=== PATIENT | male | born 1970 | race Caucasian/White ===

== ENCOUNTER 2023-02-10 11:33 | Inpatient (IN) ==
--- NOTE | 2023-02-10 11:40 | ED Triage Note ---
Date of Service February 10, 2023 History of Present Illness This patient was briefly evaluated while in triage. An abbreviated physical exam was performed. This patient is a 52-year-old Male who presents to the ED for evaluation of an abscess on his tailbone. The patient's PCP recommended that he come to the emergency department for IV antibiotics. The patient has had ongoing swelling over the past week. He rates his discomfort a 4 out of 10. Physical Exam CONSTITUTIONAL: Healthy and well nourished. Patient does not appear toxic. HEENT: No scleral icterus or conjunctival injection. GASTROINTESTINAL: Abdomen soft and nontender to palpation. MUSCULOSKELETAL: Full range of motion of all joints without discomfort. INTEGUMENTARY: Tylenol exam was not performed in triage. HEMATOLOGIC: No ecchymosis or petechiae. PSYCHIATRIC: Positive affect. NEUROLOGIC: No focal neurologic deficits noted. Initial orders for labs and / or imaging were placed and patient was placed in the waiting area until a bed is available. Please see further documentation for the full ED course.
[2023-02-10 13:48] LABS: Basophils # (auto) 0.21 K/uL (0-0.2); Basophils % (auto) 1.8 %; Eosinophils # (auto) 0.49 K/uL (0-0.50); Eosinophils % (auto) 4.1 %; Hematocrit (blood only) 39.5 % (42.0-52.0); Hemoglobin 13.6 g/dl (14.0-18.0); Immature Granulocytes # (auto) 0.12 K/uL (0.01-0.20); Lymphocytes # (auto) 2.88 K/uL (1.2-3.4); Lymphocytes % (auto) 24.4 %; Mean Corpuscular Hemoglobin 26.9 pg (25.0-34.0); Mean Corpuscular Hgb Conc 34.4 g/dL (32.0-36.0); Mean Corpuscular Volume 78.2 fL (80.0-100.0); Mean Platelet Volume 8.6 fL (9.4-12.4); Monocytes # (auto) 0.64 K/uL (0.11-0.59); Monocytes % (auto) 5.4 %; Neutrophils # (auto) 7.48 K/uL (1.40-6.50); Neutrophils % (auto) 63.3 %; Platelet Count 595 K/uL (130-400); RDW Coefficient of Variation 13.4 % (11.5-14.5); Red Blood Count 5.05 M/uL (4.70-6.10); White Blood Count 11.82 K/ul (4.8-10.8)
[2023-02-10 14:05] LABS: Albumin Globulin Ratio 0.7 (0.9-2); Albumin Level 3.4 gm/dl (3.4-5.0); BUN Creatinine Ratio 6.3 (10-20); Bilirubin,Total 0.2 mg/dl (0.2-1.0); Calcium 8.9 mg/dl (8.6-10.3); Creatinine Clr Calc Pharmacy 73.3 ml/min; Est GFR (African American) 75.5 ml/min; Est GFR (Non-African American) 65.1 ml/min; Globulin 4.8 gm/dl (2.5-4.0); Potassium 3.7 mmol/L (3.5-5.1); Total Protein 8.2 gm/dl (6.0-8.3)
--- NOTE | 2023-02-10 16:34 | Emergency Department Note ---
History of Present Illness General Chief complaint: Skin Problem Stated complaint: TAILBONE SKIN ISSUES Time Seen by Provider: 02/10/23 16:18 Source: patient, RN notes reviewed and old records reviewed (We have reviewed his [facility] records and he has received multiple cephalosporins) Mode of arrival: ambulatory Limitations: no limitations History of Present Illness Maximum Pain Intensity: 8 This patient a 52-year-old male who was sent over from Dr. Peace's office for concern of an abscess on his tailbone. He says he has a history of pilonidal abscesses that have drained before he is never actually had one surgically drained he says he usually does go on their own he had some drainage but none at present he has been itching and rubbing. He is not on a blood thinner he is a diabetic. He has had no fever or systemic complaints. no chest pain shortness of breath or abdominal pain. no injury. He does have a remote history of having MRSA he tells me he is allergic to penicillin and does get GI upset from sulfa. Home Medications Medication Instructions Recorded Confirmed Type acetaminophen 650 mg 650 mg PO BID PRN Pain 12/03/22 02/10/23 History tablet,extended release albuterol sulfate 90 mcg/actuation 2 puff inhalation QID PRN 12/03/22 02/10/23 History aerosol inhaler Shortness Of Breath aspirin 81 mg chewable tablet 81 mg PO DAILY 12/03/22 02/10/23 History atorvastatin 40 mg tablet 40 mg PO DAILY 12/03/22 02/10/23 History bupropion HCl 300 mg 24 hr tablet, 300 mg PO DAILY 12/03/22 02/10/23 History extended release cyanocobalamin (vitamin B-12) 1,000 mcg PO DAILY 12/03/22 02/10/23 History 1,000 mcg tablet cyclobenzaprine 10 mg tablet 10 mg PO HS PRN .restless leg 12/03/22 02/10/23 History epinephrine 0.3 mg/0.3 mL 0.3 mg IM DIRECTED PRN severe 12/03/22 02/10/23 History injection, auto-injector reaction fluoxetine 40 mg capsule 40 mg PO DAILY 12/03/22 02/10/23 History gabapentin 400 mg capsule 400 mg PO TID 12/03/22 02/10/23 History glycopyrrolate 9 mcg-formoterol 2 puff inhalation AMHS 12/03/22 02/10/23 History 4.8 mcg HFA aerosol inhaler (Bevespi Aerosphere) hydroxyzine HCl 25 mg tablet 25 mg PO QAM 12/03/22 02/10/23 History ibuprofen 800 mg tablet 800 mg PO TID PRN Pain 12/03/22 02/10/23 History insulin glargine 100 unit/mL (3 45 unit subcut QPM 12/03/22 02/10/23 History mL) subcutaneous pen (Lantus Solostar U-100 Insulin) insulin lispro 100 unit/mL 14 - 50 unit subcut TID 12/03/22 02/10/23 History subcutaneous pen (Admelog SoloStar U-) lamotrigine 200 mg tablet 200 mg PO AMHS 12/03/22 02/10/23 History loratadine 10 mg tablet 10 mg PO DAILY 12/03/22 02/10/23 History losartan 50 mg tablet 50 mg PO QAM 12/03/22 02/10/23 History magnesium oxide 500 mg capsule 500 mg PO DAILY 12/03/22 02/10/23 History metformin 500 mg tablet 1,000 mg PO QAM 12/03/22 02/10/23 History metoclopramide HCl 10 mg tablet 10 mg PO TID 12/03/22 02/10/23 History metoclopramide HCl 10 mg tablet 20 mg PO HS 12/03/22 02/10/23 History pantoprazole 40 mg tablet,delayed 40 mg PO QAM 12/03/22 02/10/23 History release quetiapine 25 mg tablet 25 mg PO QID PRN Anxiety 12/03/22 02/10/23 History ropinirole 1 mg tablet See Rx Instructions .Route .COMPLEX 12/03/22 02/10/23 History ropinirole 2 mg tablet See Rx Instructions .Route .COMPLEX 12/03/22 02/10/23 History Allergies Allergy/AdvReac Type Severity Reaction Status Date / Time Penicillins Allergy Severe THROAT Verified 02/10/23 17:19 CLOSING bee venom protein (honey bee) Allergy SWELLING Verified 02/10/23 17:19 liraglutide [From Victoza] AdvReac Difficulty Verified 02/10/23 17:19 Breathing Sulfa (Sulfonamide AdvReac Gastrointestinal Verified 02/10/23 17:19 Antibiotics) Upset Past Med/Surg History Medical History Abscess and cellulitis of gluteal region Depression GERD (gastroesophageal reflux disease) HLD (hyperlipidemia) HTN (hypertension) Insulin dependent type 2 diabetes mellitus Surgical History No pertinent past surgical history Family History Other COPD (chronic obstructive pulmonary disease) Diabetes Social History Smoking Status: Current every day smoker Tobacco Type: Cigarettes Second Hand Exposure: No; Do You Dip or Chew Tobacco: No; Hx Alcohol Use: No Hx Substance Use: No Feels Safe at Home: Yes Immunizations: Past medical historydiabetes. Pilonidal abscess. Social history he smokes 1 pack a day. Denies alcohol and drug use. He is disabled Review of Systems A total of 10 systems reviewed and were otherwise negative Physical Exam Vital Signs Vital Signs - 24 hr 02/10/23 11:38 02/10/23 17:09 Temperature 35.9 C L Temperature Source Temporal Artery Scan Pulse Rate 115 H Pulse Rate [Right Finger] 74 Respiratory Rate 18 20 Respiratory Effort / Characteristics Non-Labored Respiratory Depth Normal Blood Pressure 120/64 Blood Pressure [Right Arm] 123/84 Blood Pressure Mean 82 Blood Pressure Mean [Right Arm] 97 Pulse Oximetry 96 98 Oxygen Delivery Method Room Air Sepsis Recent Fever Within 48 Hours Yes Sepsis New/Unexplained Change in Mental Status N/A Sepsis Action Taken by Nursing No Action Required General: Well developed well nourished [id number] middle-age male who appears in no acute distress, breathing comfortably on room air. Normal speech HEENT: Normal cephalic atraumatic. Pupils are equal round and reactive to light. Extraocular movements are intact. Oropharynx is pink with moist mucous membranes. No swelling of the mouth lips or tongue. Neck: Supple with a midline trachea. No meningeal signs or stiffness, no JVD or bruits. No Stridor. Chest: Clear to auscultation bilaterally. No wheezes or rhonchi. No increased work of breathing. Heart: Regular rate and rhythm without murmurs or gallops. Abdomen: Soft nontender, nondistended without rebound guarding or rigidity. Rectal: Has diffuse pink discoloration of both of his butt cheeks bilaterally where he has been rubbing there is excoriation of the skin is not overtly cellulitic there is no drainage. There is a small opening centrally where there may have been a pilonidal abscess at 1 point but that area itself is not swollen or red and without any drainage. Extremities: No cyanosis clubbing or edema. No calf tenderness or assymetry Spine/Back. Non tender to palpation. No CVA tenderness Skin: Good turgor without rashes. Neurologic exam: Cranial nerves two through 12 are intact. Motor and sensation are intact and symmetrical throughout. Course Administered Medications Sodium Chloride (Nss 1000ml) 1,000 mls @ 80 mls/hr IV .[id number] FERNANDEZ Stop: 02/11/23 07:59 Last Admin: 02/10/23 22:00 Dose: 80 mls/hr Documented By: DACIAB Discontinued Medications Ceftriaxone Sodium (Rocephin) 2,000 mg in 70 mls @ 140 mls/hr IV NOW STA Stop: 02/10/23 17:18 Last Infusion: 02/10/23 17:37 Dose: 0 mls/hr Documented By: Admin: 02/10/23 17:09 Dose: 140 mls/hr Documented By: PACHECO Vancomycin HCl 1,750 mg/ (Sodium Chloride) 535 mls @ 200 mls/hr IV NOW ONE Stop: 02/10/23 21:41 Last Admin: 02/10/23 19:27 Dose: 200 mls/hr Documented By: AHMET Ioversol (Optiray 320 100ml) 88 ml IV ONCE ONE Stop: 02/10/23 16:44 Last Admin: 02/10/23 16:43 Dose: 88 ml Documented By: AMIRAH Medical Decision Making Differential Diagnosis Abscess, cellulitis, infection, sepsis, pilonidal abscess, electrolyte or meta bolic abnormality Medical Records Attestation: I reviewed the patient's medical records. Home Medications Current Medication List: was personally reviewed by me Laboratory Data Attestation: I reviewed the patient's lab results. 02/10/23 13:20 02/10/23 13:20 Lab Results 02/10/23 02/10/23 Range/Units 13:20 13:20 WBC 11.82 H (4.8-10.8) K/ul RBC 5.05 (4.70-6.10) M/uL Hgb 13.6 L (14.0-18.0) g/dl Hct 39.5 L (42.0-52.0) % MCV 78.2 L (80.0-100.0) fL MCH 26.9 (25.0-34.0) pg MCHC 34.4 (32.0-36.0) g/dL RDW Std Deviation 38.0 (36.4-46.3) fL RDW Coeff of Estefnaia 13.4 (11.5-14.5) % Plt Count 595 H (130-400) K/uL MPV 8.6 L (9.4-12.4) fL Immature Gran % (Auto) 1.0 % Neut % (Auto) 63.3 % Lymph % (Auto) 24.4 % [place] % (Auto) 5.4 % Eos % (Auto) 4.1 % Baso % (Auto) 1.8 % Neut # (Auto) 7.48 H (1.40-6.50) K/uL Lymph # (Auto) 2.88 (1.2-3.4) K/uL [place] # (Auto) 0.64 H (0.11-0.59) K/uL Eos # (Auto) 0.49 (0-0.50) K/uL Baso # (Auto) 0.21 H (0-0.2) K/uL Immature Gran # (Auto) 0.12 (0.01-0.20) K/uL Sodium 128 L (136-145) mmol/L Potassium 3.7 (3.5-5.1) mmol/L Chloride 98 (98-107) mmol/L Carbon Dioxide 25 (21-32) mmol/L Anion Gap 5 (3-11) BUN 8 (6-23) mg/dl Creatinine 1.26 (0.6-1.4) mg/dl Est Cr Clr Drug Dosing 73.3 ml/min Est GFR ( Amer) 75.5 ml/min Est GFR (Non-Af Amer) 65.1 ml/min BUN/Creatinine Ratio 6.3 L (10-20) Glucose 173 H (70-99(Fasting)) mg/dl Calcium 8.9 (8.6-10.3) mg/dl Total Bilirubin 0.2 (0.2-1.0) mg/dl AST 12 L (13-39) U/L ALT 10 (7-52) U/L Alkaline Phosphatase 164 H (34-104) U/L Total Protein 8.2 (6.0-8.3) gm/dl Albumin 3.4 (3.4-5.0) gm/dl Globulin 4.8 H (2.5-4.0) gm/dl Albumin/Globulin Ratio 0.7 L (0.9-2) Imaging Data Attestation: I personally reviewed and interpreted this imaging study as follows: My Impression: CT abdomen and pelvis-there is what appears to be an abscess in his left gluteal area Radiologist's Impression: Abdomen/Pelvis CT 02/10/23 16:[address] WITH IV CONTRAST CT DOSE: 1614.75 mGy.cm HISTORY: Acute lower pelvic/rectal pain eval for rectal/pilonidal abscess TECHNIQUE: Multiaxial CT images of the abdomen and pelvis were performed following the IV administration of 88 cc of Optiray, A dose lowering technique was utilized adhering to the principles of ALARA. COMPARISON STUDY: Chest radiograph 12/01/2022 FINDINGS: Mild patchy subsegmental bibasilar groundglass densities. No pneumatosis or pneumoperitoneum. Gynecomastia. The spleen is mildly enlarged, 14.5 cm. Mildly atrophic pancreas. Unremarkable adrenal glands. Cholelithiasis. Mildly enlarged liver. Patent portal vein. Unremarkable kidneys. 2 cm cyst of the superior pole left kidney. No hydronephrosis. Unremarkable urinary bladder. Atherosclerosis of the aorta without aneurysm. Subcentimeter retroperitoneal lymph nodes are likely reactive. Nonspecific distal esophageal wall thickening. No bowel obstruction or bowel wall thickening. Colonic diverticulosis. Normal appendix. There is moderate focal cellulitis changes within the subcutaneous left gluteal tissues. There is a peripherally enhancing air and fluid filled collection in the left subcutaneous gluteal tissues on image 23 measuring 5.3 x 2.5 x 6.0 cm with a sinus tract on image 268 extending to the medial gluteal cleft no extension to the perianal tissues. No acute fracture or osseous erosion. IMPRESSION: 1. Left gluteal cellulitis with subcutaneous 6 cm abscess. There is an associated sinus tract which appears to communicate with the medial gluteal cleft. 2. No perianal involvement or supralevator extension. 3. No bowel obstruction or bowel wall thickening. 4. Cholelithiasis. 5. Mild subsegmental bibasilar groundglass densities are suspicious for a nonspecific infectious or inflammatory pneumonitis such as viral pneumonia. 6. Additional findings as above. ACT 112: Negative or not required by law. The above report was generated using voice recognition software. It may contain grammatical, syntax or spelling errors. Electronically signed by: Prince Underwood M.D. 02/10/2023 5:00 PM MDM Narrative This patient comes in as described above he has history of pilonidal abscess and on exam he is very indurated in both of his butt cheeks bilaterally there is no focal area of swelling or definitive oral abscess on exam I did order CT White count mildly elevated at 11 although he is afebrile. There is no drainage or overt cellulitis on exam his sodium is mildly low at 128 however looking back to the chart he tends to run low. Blood sugars mildly elevated 173 however he is a diabetic. CT was obtained I did look through his records. He has received multiple cephalosporins including Rocephin. He was given Rocephin 2 g IV. CAT scan does show a left gluteal cellulitis with a 6 cm abscess with a fistula. I did discuss the case in consultation with Dr. Gorman, who is the surgeon on- call. He recommended admitting the patient for IV antibiotics to the medical team, given the fact that he is a diabetic. [facility] and they will be admitting him for these measures with surgical consultation. Impression & Plan Abscess and cellulitis of gluteal region, Insulin dependent type 2 diabetes mellitus, Cellulitis, Abscess of skin or subcutaneous tissue Discharge Plan Visit Data Chief Complaint: Skin Problem Stated Complaint: TAILBONE SKIN ISSUES ED Provider: Mic Montaño Discharge Problem: Abscess and cellulitis of gluteal region, Insulin dependent type 2 diabetes mellitus, Cellulitis, Abscess of skin or subcutaneous tissue Patient Disposition: Admitted As Inpatient Discharge Instructions Interventions: ED Discharge Assessment Last Done: 02/10/23 20:56
[2023-02-10] MEDS ORDERED: OPTIRAY 320 100ml IV ONE (16:43)
[2023-02-10] MEDS ORDERED: cefTRIAXone SODIUM 2,000 MG/70 ML BAG IV STA (16:49)
--- NOTE | 2023-02-10 17:01 | CT Scan Report ---
ABDOMEN AND PELVIS CT WITH IV CONTRAST CT DOSE: 1614.75 mGy.cm HISTORY: Acute lower pelvic/rectal pain eval for rectal/pilonidal abscess TECHNIQUE: Multiaxial CT images of the abdomen and pelvis were performed following the IV administrat ion of 88 cc of Optiray, A dose lowering technique was utilized adhering to the principles of ALARA. COMPARISON STUDY: Chest radiograph 12/01/2022 FINDINGS: Mild patchy subsegmental bibasilar groundglass densities. No pneumatosis or pneumoperitoneu m. Gynecomastia. The spleen is mildly enlarged, 14.5 cm. Mildly atrophic pancreas. Unremarkable adren al glands. Cholelithiasis. Mildly enlarged liver. Patent portal vein. Unremarkable kidneys. 2 cm cyst of the superior pole left kidney. No hydronephrosis. Unremarkable urinary bladder. Atherosclerosis o f the aorta without aneurysm. Subcentimeter retroperitoneal lymph nodes are likely reactive. Nonspecific distal esophageal wall thickening. No bowel obstruction or bowel wall thickening. Colonic diverticulosis. Normal appendix. There is moderate focal cellulitis changes within the subcutaneous left gluteal tissues. There is a peripherally enhancing air and fluid filled collection in the left s ubcutaneous gluteal tissues on image 23 measuring 5.3 x 2.5 x 6.0 cm with a sinus tract on image 268 extending to the medial gluteal cleft no extension to the perianal tissues. No acute fracture or osse ous erosion. IMPRESSION: 1. Left gluteal cellulitis with subcutaneous 6 cm abscess. There is an associated sinus tract which a ppears to communicate with the medial gluteal cleft. 2. No perianal involvement or supralevator extension. 3. No bowel obstruction or bowel wall thickening. 4. Cholelithiasis. 5. Mild subsegmental bibasilar groundglass densities are suspicious for a nonspecific infectious or i nflammatory pneumonitis such as viral pneumonia. 6. Additional findings as above. ACT 112: Negative or not required by law. The above report was generated using voice recognition software. It may contain grammatical, syntax o r spelling errors. Electronically signed by: Prince Underwood M.D. 02/10/2023 5:00 PM
[2023-02-10] MEDS ORDERED: ONDANSETRON INJ 2 MG/ML 2 ML VIAL IV PRN (17:55)
[2023-02-10] MEDS ORDERED: ACETAMINOPHEN 325 MG TAB PO PRN (17:55)
[2023-02-10] MEDS ORDERED: POLYETHYLENE (MIRALAX) 17 GM PACK PO PRN (17:55)
[2023-02-10] MEDS ORDERED: ALUMINUM/MAGNESIUM SUSP 30 ML UDC PO PRN (17:55)
[2023-02-10] MEDS ORDERED: MAGNESIUM HYDROXIDE SUSP 30 ML UDC PO PRN (17:55)
--- NOTE | 2023-02-10 18:23 | History & Physical Report ---
Date of Service February 10, 2023 Assessment & Plan (1) Abscess and cellulitis of gluteal region: (2) Insulin dependent type 2 diabetes mellitus: (3) HTN (hypertension): (4) HLD (hyperlipidemia): (5) Depression: (6) GERD (gastroesophageal reflux disease): Plan 52-year-old male presented from PCP with rectal pain and swelling. Known pilonidal cysts that he describes drain on their own. Abdomen/pelvic CT: There is a peripherally enhancing air and fluid filled collection in the left subcutaneous gluteal tissues on image 23 measuring 5.3 x 2.5 x 6.0 cm with a sinus tract on image 268 extending to the medial gluteal cleft no extension to the perianal tissues. No acute fracture or osseous erosion. Left gluteal cellulitis with subcutaneous 6 cm abscess. There is an associated sinus tract which appears to communicate with the medial gluteal cleft. Mild leukocytosis 11.82, lactate pending. Slight hyponatremia 128 with corrected sodium 130. Additional past medical history includes insulin-dependent diabetes mellitus type 2, HTN, HLD, depression and anxiety, depression, and GERD. Rocephin started in the ED; documented PCN allergy that pt states had anaphylaxis as a kid. Will start Vancomycin and adjust based on blood culture results. Appreciate general surgery's input with formal consultation. Abscess and cellulitis of gluteal region: Rectal pain and swelling Mild leukocytosis 11.82 Abdomen/pelvic CT: There is a peripherally enhancing air/fluid filled collection in the left subcutaneous gluteal tissues on image 23 measuring 5.3 x 2.5 x 6.0 cm with a sinus tract extending to the medial gluteal cleft no extension to the perianal tissues. No acute fracture or osseous erosion. Left gluteal cellulitis with subcutaneous 6 cm abscess. T here is an associated sinus tract which appears to communicate with the medial gluteal cleft. Rocephin started in ED; documented PCN allergy that pt states had anaphylaxis as a child. Will start Vancomycin + Cipro + Flagyl to cover gram negative, MRSA, and anorectal abscess; adjust based on blood culture results Blood cultures and lactate ordered To note patient uses 1800 mg ibuprofen daily NPO after midnight; hold ASA General surgery consultation placed Hyponatremia: Serum sodium 128; corrected sodium 130 After review of records this is patient's baseline sodium level Do not suspect renal loss, GI loss versus third spacing rather euvolemic hypotonic hyponatremia related to antidepressant and NSAID use. Anticipate further resolution with IVF resuscitation; IVF@80 mL/h x 1 bag ordered; reassess in a.m. no known heart failure history. Insulin-dependent diabetes type 2 with neuropathy: Takes metformin; hold while inpatient Takes Gabapentin; continue Scheduled lispro 50 units 3 times daily; keep on sliding scale and carb coverage while inpatient Last A1c: 08/2022 7.2; recheck in AM Serum glucose 173 diabetic diet; NPO after MN pending gen sx consultation Glycemic Pharmacy HTN: Takes Losartan; continue HLD: Takes atorvastatin; continue Bipolar disorder: Depression: Follows with Psych in [place]; Last appt 12/31/22. Prescribed Wellbutrin, Lamictal, Seroquel (PRN), Prozac, hydroxyzine; continue Has not had any recent visual or auditory hallucinations. GERD: Takes pantoprazole; continue Disposition: PCP: Dr. Schuler CODE STATUS: Full code VTE prophylaxis: Teds and SCDs for now I spent a total of 88 minutes coordinating, documenting, and providing care for this patient excluding time spent in the performance of separately billed services. All of the aforementioned completed while collaborating with the assigned attending physician for a full treatment plan. Please see their addendum for further details. History of Present Illness Chief Complaint: rectal pain Primary Care Provider: Taran Schuler DO 52-year-old male presented to his PCP office with rectal pain and swelling and was referred to the emergency room for further evaluation. Patient with known pilonidal cysts that he describes drain on their own. Reports having increased pain with walking over the past week. Denies fevers or chills. No changes with bowel movements; no hematochezia. Abdomen/pelvic CT: There is a peripherally enhancing air and fluid filled collection in the left subcutaneous gluteal tissues on image 23 measuring 5.3 x 2.5 x 6.0 cm with a sinus tract on image 268 extending to the medial gluteal cleft no extension to the perianal tissues. No acute fracture or osseous erosion. Left gluteal cellulitis with subcutaneous 6 cm abscess. There is an associated sinus tract which appears to communicate with the medial gluteal cleft. Mild leukocytosis 11.82, slight hyponatremia 128 with corrected sodium 130. Do not suspect renal loss, GI loss versus third spacing rather euvolemic hypotonic hyponatremia related to antidepressant and daily NSAID use. Per review of records; baseline Na+ 130 from August 2022. Does take short and long acting insulin but was unable to tell me any ranges of his glucose levels. A1C 7.2 from Aug 2022. Additional past medical history includes insulin-dependent diabetes mellitus type 2, HTN, HLD, depression and anxiety, bipolar disorder, tobacco use, and GERD. Smokes 1 ppd, no alcohol or illicit drug use. Stated he 'thinks' he had a stroke in his past; not on any anticoagulation; Limited but was able to find outpatient records from [facility] with head neck CTA that was negative. Follows with Psych in [place]; Last appt 12/31/22. patient is on disability due to medical reasons and adult children reside in [place]. For his bipolar disorder and depression he is prescribed Wellbutrin, Lamictal, Seroquel, Prozac, hydroxyzine. He reports that potential stressors in his life include his brother that he lives with. He is able to find distractions and listen to music and has not had any recent visual or auditory hallucinations. Rocephin started in the ED; documented PCN allergy that pt states had anaphylaxis as a kid. Will start Vancomycin and adjust based on blood culture results. Appreciate general surgery's input with formal consultation. Denies PAGE, dizziness, SOB, CP, palpitations, N/V/D, abdominal pain/tenderness, dysuria, neuropathy , weakness, recent falls or trauma. On examination, disheveled individual with large stage 1 pressure ulcer extending on both sides of his gluteal folds with scattered stage II breakdown without purulent drainage. He will be admitted for further evaluation and management. Please see A/P for further details. Allergies Allergy/AdvReac Type Severity Reaction Status Date / Time Penicillins Allergy Severe THROAT Verified 02/10/23 17:19 CLOSING bee venom protein (honey bee) Allergy SWELLING Verified 02/10/23 17:19 liraglutide [From Victoza] AdvReac Difficulty Verified 02/10/23 17:19 Breathing Sulfa (Sulfonamide AdvReac Gastrointestinal Verified 02/10/23 17:19 Antibiotics) Upset Home Medications Medication Instructions Recorded Confirmed Type acetaminophen 650 mg 650 mg PO BID PRN Pain 12/03/22 02/10/23 History tablet,extended release albuterol sulfate 90 mcg/actuation 2 puff inhalation QID PRN 12/03/22 02/10/23 History aerosol inhaler Shortness Of Breath aspirin 81 mg chewable tablet 81 mg PO DAILY 12/03/22 02/10/23 History atorvastatin 40 mg tablet 40 mg PO DAILY 12/03/22 02/10/23 History bupropion HCl 300 mg 24 hr tablet, 300 mg PO DAILY 12/03/22 02/10/23 History extended release cyanocobalamin (vitamin B-12) 1,000 mcg PO DAILY 12/03/22 02/10/23 History 1,000 mcg tablet cyclobenzaprine 10 mg tablet 10 mg PO HS PRN .restless leg 12/03/22 02/10/23 History epinephrine 0.3 mg/0.3 mL 0.3 mg IM DIRECTED PRN severe 12/03/22 02/10/23 His tory injection, auto-injector reaction fluoxetine 40 mg capsule 40 mg PO DAILY 12/03/22 02/10/23 History gabapentin 400 mg capsule 400 mg PO TID 12/03/22 02/10/23 History glycopyrrolate 9 mcg-formoterol 2 puff inhalation AMHS 12/03/22 02/10/23 History 4.8 mcg HFA aerosol inhaler (Bevespi Aerosphere) hydroxyzine HCl 25 mg tablet 25 mg PO QAM 12/03/22 02/10/23 History ibuprofen 800 mg tablet 800 mg PO TID PRN Pain 12/03/22 02/10/23 History insulin glargine 100 unit/mL (3 45 unit subcut QPM 12/03/22 02/10/23 History mL) subcutaneous pen (Lantus Solostar U-100 Insulin) insulin lispro 100 unit/mL 14 - 50 unit subcut TID 12/03/22 02/10/23 History subcutaneous pen (Admelog SoloStar U-) lamotrigine 200 mg tablet 200 mg PO AMHS 12/03/22 02/10/23 History loratadine 10 mg tablet 10 mg PO DAILY 12/03/22 02/10/23 History losartan 50 mg tablet 50 mg PO QAM 12/03/22 02/10/23 History magnesium oxide 500 mg capsule 500 mg PO DAILY 12/03/22 02/10/23 History metformin 500 mg tablet 1,000 mg PO QAM 12/03/22 02/10/23 History metoclopramide HCl 10 mg tablet 10 mg PO TID 12/03/22 02/10/23 History metoclopramide HCl 10 mg tablet 20 mg PO HS 12/03/22 02/10/23 History pantoprazole 40 mg tablet,delayed 40 mg PO QAM 12/03/22 02/10/23 History release quetiapine 25 mg tablet 25 mg PO QID PRN Anxiety 12/03/22 02/10/23 History ropinirole 1 mg tablet See Rx Instructions .Route .COMPLEX 12/03/22 02/10/23 History ropinirole 2 mg tablet See Rx Instructions .Route .COMPLEX 12/03/22 02/10/23 History Past Med/Surg History Medical History Abscess and cellulitis of gluteal region Depression GERD (gastroesophageal reflux disease) HLD (hyperlipidemia) HTN (hypertension) Insulin dependent type 2 diabetes mellitus Surgical History No pertinent past surgical history Family History Other COPD (chronic obstructive pulmonary disease) Diabetes Social History Smoking Status: Current every day smoker Tobacco Type: Cigarettes Second Hand Exposure: No; Do You Dip or Chew Tobacco: No; Hx Alcohol Use: No Hx Substance Use: No Feels Safe at Home: Yes Review of Systems Review of Systems: Neuro: (-) Falls, trauma, slurred speech HEENT: (-) PAGE, dizziness, dysphagia, visual or auditory changes CV: (-) CP, palpitations, swelling Resp: (-) SOB GI: (-) appetite changes, N/V/D, bowel changes : (-) urinary changes Skin: (+ ) rashes, skin breakdown on bottom Psych: (-) anxiety, depression Physical Exam Physical Exam: Neuro: AAOx4, PERRLA, no aphagia, memory changes, CNII-XII grossly intact HEENT: head normocephalic, moist mucus membranes CV: S1/S2, (-) M/G/R, (-) edema, cap refill < 3 seconds Resp: Lungs CTA in all gilbert. On RA GI: Abdomen S/NT/ND, Ax4 bowel sounds, (-) CVA tenderness Musculoskeletal: 5/5 B/L UE strength, 5/5 B/L LE strength. No gait disturbance Skin: stage 1 pressure ulcer extending on both sides of his gluteal folds with scattered stage II breakdown without purulent drainage. Psych: euthymic mood Results & Data Results & Data Vital Signs (Past 12 Hours) Vital Signs Temp Pulse Pulse Resp BP BP Pulse Ox 02/10/23 17:09 74 20 123/84 98 02/10/23 11:38 35.9 C L 115 H 18 120/64 96 O2 Del Method 02/10/23 17:09 Room Air 02/10/23 11:38 Laboratory Results Short CBC 02/10/23 Range/Units 13:20 WBC 11.82 H (4.8-10.8) K/ul Hgb 13.6 L (14.0-18.0) g/dl Hct 39.5 L (42.0-52.0) % Plt Count 595 H (130-400) K/uL BMP 02/10/23 13:20 Sodium 128 L Potassium 3.7 Chloride 98 Carbon Dioxide 25 BUN 8 Creatinine 1.26 Glucose 173 H Calcium 8.9 Liver Function 02/10/23 Range/Units 13:20 Total Bilirubin 0.2 (0.2-1.0) mg/dl AST 12 L (13-39) U/L ALT 10 (7-52) U/L Alkaline Phosphatase 164 H (34-104) U/L Albumin 3.4 (3.4-5.0) gm/dl Diagnostic Findings Abdomen/Pelvis CT 02/10/23 16:[address] WITH IV CONTRAST CT DOSE: 1614.75 mGy.cm HISTORY: Acute lower pelvic/rectal pain eval for rectal/pilonidal abscess TECHNIQUE: Multiaxial CT images of the abdomen and pelvis were performed following the IV administration of 88 cc of Optiray, A dose lowering technique was utilized adhering to the principles of ALARA. COMPARISON STUDY: Chest radiograph 12/01/2022 FINDINGS: Mild patchy subsegmental bibasilar groundglass densities. No pneumatosis or pneumoperitoneum. Gynecomastia. The spleen is mildly enlarged, 14.5 cm. Mildly atrophic pancreas. Unremarkable adrenal glands. Cholelithiasis. Mildly enlarged liver. Patent portal vein. Unremarkable kidneys. 2 cm cyst of the superior pole left kidney. No hydronephrosis. Unremarkable urinary bladder. Atherosclerosis of the aorta without aneurysm. Subcentimeter retroperitoneal lymph nodes are likely reactive. Nonspecific distal esophageal wall thickening. No bowel obstruction or bowel wall thickening. Colonic diverticulosis. Normal appendix. There is moderate focal cellulitis changes within the subcutaneous left gluteal tissues. There is a peripherally enhancing air and fluid filled collection in the left subcutaneous gluteal tissues on image 23 measuring 5.3 x 2.5 x 6.0 cm with a sinus tract on image 268 extending to the medial gluteal cleft no extension to the perianal tissues. No acute fracture or osseous erosion. IMPRESSION: 1. Left gluteal cellulitis with subcutaneous 6 cm abscess. There is an associated sinus tract which appears to communicate with the medial gluteal cleft. 2. No perianal involvement or supralevator extension. 3. No bowel obstruction or bowel wall thickening. 4. Cholelithiasis. 5. Mild subsegmental bibasilar groundglass densities are suspicious for a nonspecific infectious or inflammatory pneumonitis such as viral pneumonia. 6. Additional findings as above. ACT 112: Negative or not required by law. The above report was generated using voice recognition software. It may contain grammatical, syntax or spelling errors. Electronically signed by: Prince Underwood M.D. 02/10/2023 5:00 PM Code Status & VTE Plan Code Status Full code in the event of cardiac or respiratory arrest VTE Prophylaxis Plan VTE Prophylaxis will be ordered: Yes Supervising Physician Co-Signing Physician Notes I have seen and examined the patient and have discussed the case with the provider above. I agree with the assessment and plan as stated. 52 yo M p resents to the ER as a recommendation from his PCP for ongoing pain and ulcerations son his buttocks. He appears hemodynamically stable, afebrile and is in NAD lying on his side in the bed. He denies fevers, chills, or other symptoms. On exam he is mentating clearly. He is unkempt and unwashed. Feet caked with grime on soles. Cardiac exam reveals regular rate and rhythm, S1/2 heard and no evidence of murmur or fluid overload. Lungs with diffuse wheezing throughout all lung gilbert. Sacral area and superior intergluteal cleft is irritated with this irritation/excoriation over erythema spreading to bilateral glutes. Labs/CT scan reviewed. Outpatient records reviewed. Na runs low normal at baseline. Currently 128. 1. Gluteal abscess. And cellulitis 2. DMII on insulin 3. Bipolar I disorder/PTSD 4. Smoker Cont vanc, cipro, flagyl given h/o severe PCN allergy. Surgery to evaluate for definitive drainage in am. Pt takes Ibuprofen regularly and this was held. NPO after midnight in case of procedure. DO Bib
[2023-02-10] MEDS ORDERED: VANCOMYCIN CONSULT ACTIVE PRN (19:01)
[2023-02-10] MEDS ORDERED: VANCOMYCIN HCL 1,750 MG in SODIUM CHLORIDE 0.9% 500 ML IV ONE (19:01)
[2023-02-10] MEDS ORDERED: GLUCOSE 10 TAB/TUBE PO PRN (19:07)
[2023-02-10] MEDS ORDERED: GLUCOSE 40% GEL 15 GM TUBE PO PRN (19:07)
[2023-02-10] MEDS ORDERED: PHARMACY GLYCEMIC MGMT CONSULT PRN (19:07)
[2023-02-10] MEDS ORDERED: DEXTROSE 50% 50 ML SYRINGE IV PRN (19:07)
[2023-02-10] MEDS ORDERED: GLUCAGON FOR INJ 1 MG VIAL SQ PRN (19:07)
[2023-02-10] MEDS ORDERED: CARBOHYDRATES FOR HYPOGLYCEMIA PO PRN (19:07)
[2023-02-10] MEDS ORDERED: rOPINIRole HCL 1 MG TABLET PO SCH (19:30)
[2023-02-10] MEDS ORDERED: SODIUM CHLORIDE 0.9% 1000ML 1,000 ML IV SCH (19:30)
--- NOTE | 2023-02-10 19:50 | Surgery Consultation ---
Date of Consultation February 10, 2023 Assessment & Plan (1) Abscess and cellulitis of gluteal region: The patient has been admitted on the hospitalist service. We recommend proceeding as follows: Patient has received Rocephin in the emergency department. He has also had vancomycin initiated. I discussed with the admitting hospitalist serviceas they are in the process of formulating a further antibiotic plan in order to cover gram-negative organisms as well as anaerobes. Blood cultures have been sent and he should be followed with antibiotics tailored based on these results Analgesics should be provided Antiemetics to be provided Serial labs to be followed Would recommend hydration measures with intravenous fluid Tight glucose control should be achieved to promote wound healing Patient will be be made n.p.o. after midnight. Patient be examined at bedside by Dr. oGrman of general surgery and he will determine if patient could potentially have this abscess drained by interventional radiology and if not he will consider taking the patient to the operating room for formal incision and drainage. At the present time the patient only has a slight leukocytosis 11.8. He is normotensive with only a slight tachycardia but heart rate in the 90s. He is noted to be afebrile and he does not exhibit acute kidney injury Additional recommendations be forthcoming based on his clinical course as unfolds Supervising Physician Co-Signing Physician Notes d/w Miguel Arreola, labs and imaging reviewed, agree with above. Gluteal abscess, likely pilonidal. Will admit to medicine, Possible I&D tomorrow in OR. History of Present Illness Reason for Consultation: Gluteal labs History of Present Illness This is a 52-year-old male who presented to the emergency department secondary to pain in his left buttocks. Patient says that this has been going on for approximately 1 week. He does report that approximate 1 year ago he had a gluteal abscess in the same vicinity as his current area of pain. He said he was treated with an oral antibiotic and this abscess drained on its own he did not require any procedural intervention. Because of the pain he has been experiencing for 1 week he presented the emergency department. The patient says that he has not had any cuts, excoriations, or any type of trauma that would have precipitated an abscess formation. He denies any fevers, shakes, or chills. He denies any nausea or vomiting. He notes that the area of his left buttocks is somewhat painful. He notes that he is moving his bowels normally and this does not affect the pain. He does report that he is diabetic. His most recent oral intake was at approximately noon on 02/10/2023 Since arrival to hospital the patient has had labs and imaging which independent reviewed. Patient did have a CT scan of the abdomen and pelvis with patient was noted to have left gluteal cellulitis with a 6 mm subcutaneous abscess. There appears to be an associated sinus tract which communicates with the medial gluteal cleft. There is not appear to be any perianal extension of this Labs include a CBC her white blood cell count was elevated at 11.8. Hemoglobin and hematocrit 13.6 and 35.5. Platelet count was 595,000. Chemistry profile showed sodium was 128 with a normal potassium. BUN and creatinine were also noted to be normal. His glucose was elevated at 173. At the time of my interview the patient was resting comfortably in bed and he was in no distress Allergies Allergy/AdvReac Type Severity Reaction Status Date / Time Penicillins Allergy Severe THROAT Verified 02/10/23 17:19 CLOSING bee venom protein (honey bee) Allergy SWELLING Verified 02/10/23 17:19 liraglutide [From Victoza] AdvReac Difficulty Verified 02/10/23 17:19 Breathing Sulfa (Sulfonamide AdvReac Gastrointestinal Verified 02/10/23 17:19 Antibiotics) Upset Home Medications Medication Instructions Recorded Confirmed Type acetaminophen 650 mg 650 mg PO BID PRN Pain 12/03/22 02/10/23 History tablet,extended release albuterol sulfate 90 mcg/actuation 2 puff inhalation QID PRN 12/03/22 02/10/23 History aerosol inhaler Shortness Of Breath aspirin 81 mg chewable tablet 81 mg PO DAILY 12/03/22 02/10/23 History atorvastatin 40 mg tablet 40 mg PO DAILY 12/03/22 02/10/23 History bupropion HCl 300 mg 24 hr tablet, 300 mg PO DAILY 12/03/22 02/10/23 History extended release cyanocobalamin (vitamin B-12) 1,000 mcg PO DAILY 12/03/22 02/10/23 History 1,000 mcg tablet cyclobenzaprine 10 mg tablet 10 mg PO HS PRN .restless leg 12/03/22 02/10/23 History epinephrine 0.3 mg/0.3 mL 0.3 mg IM DIRECTED PRN severe 12/03/22 02/10/23 History injection, auto-injector reaction fluoxetine 40 mg capsule 40 mg PO DAILY 12/03/22 02/10/23 History gabapentin 400 mg capsule 400 mg PO TID 12/03/22 02/10/23 History glycopyrrolate 9 mcg-formoterol 2 puff inhalation AMHS 12/03/22 02/10/23 History 4.8 mcg HFA aerosol inhaler (Bevespi Aerosphere) hydroxyzine HCl 25 mg tablet 25 mg PO QAM 12/03/22 02/10/23 History ibuprofen 800 mg tablet 800 mg PO TID PRN Pain 12/03/22 02/10/23 History insulin glargine 100 unit/mL (3 45 unit subcut QPM 12/03/22 02/10/23 History mL) subcutaneous pen (Lantus Solostar U-100 Insulin) insulin lispro 100 unit/mL 14 - 50 unit subcut TID 12/03/22 02/10/23 History subcutaneous pen (Admelog SoloStar U-) lamotrigine 200 mg tablet 200 mg PO AMHS 12/03/22 02/10/23 History loratadine 10 mg tablet 10 mg PO DAILY 12/03/22 02/10/23 History losartan 50 mg tablet 50 mg PO QAM 12/03/22 02/10/23 History magnesium oxide 500 mg capsule 500 mg PO DAILY 12/03/22 02/10/23 History metformin 500 mg tablet 1,000 mg PO QAM 12/03/22 02/10/23 History metoclopramide HCl 10 mg tablet 10 mg PO TID 12/03/22 02/10/23 History metoclopramide HCl 10 mg tablet 20 mg PO HS 12/03/22 02/10/23 History pantoprazole 40 mg tablet,delayed 40 mg PO QAM 12/03/22 02/10/23 History release quetiapine 25 mg tablet 25 mg PO QID PRN Anxiety 12/03/22 02/10/23 History ropinirole 1 mg tablet See Rx Instructions .Route .COMPLEX 12/03/22 02/10/23 History ropinirole 2 mg tablet See Rx Instructions .Route .COMPLEX 12/03/22 02/10/23 History Patient History Medical History Abscess and cellulitis of gluteal region Depression GERD (gastroesophageal reflux disease) HLD (hyperlipidemia) HTN (hypertension) Insulin dependent type 2 diabetes mellitus Surgical History No pertinent past surgical history Family History Other COPD (chronic obstructive pulmonary disease) Diabetes Social History Smoking Status: Current every day smoker Tobacco Type: Cigarettes Second Hand Exposure: No; Do You Dip or Chew Tobacco: No; Hx Alcohol Use: No Hx Substance Use: No Feels Safe at Home: Yes Review of Systems Constitutional: no fever and no chills Ear, Nose, Mouth, Throat: no hearing loss Respiratory: no cough and no dyspnea Cardiovascular: no chest pain Gastrointestinal: no abdominal pain, no nausea and no vomiting Genitourinary: no dysuria Musculoskeletal: no back pain Integumentary: as per Subjective / HPI Neurologic: no localized weakness Physical Exam Physical Exam: The patient's buttocks/rectum/perianal area was examined. The patient did have a large indurated area on superior aspect the left medial gluteal region that appeared to extend near the medial gluteal cleft. There is no crepitus in the soft tissue. The area is hard and indurated as noted previously. There are no open areas or areas of drainage. There are no areas of eschar. Patient did appear to have intertrigo of the perianal region Constitutional: well developed, well nourished and + disheveled Eyes: no conjunctival abnormality ENMT: Ears: no hearing impairment and no external ear abnormality Mouth: no oropharynx abnormality Neck: trachea midline Respiratory: normal respiratory effort; no respiratory distress and no labored breathing Cardiovascular: Rate/Rhythm: regular rate and regular rhythm Gastrointestinal (Abdomen): Soft and nondistended. There is no pain with palpation Musculoskeletal: No calf tenderness Skin: no rashes Neurologic: moves all extremities Psychiatric: A+Ox3, euthymic affect Results & Data Vital Signs (Past 12 Hours) Vital Signs Temp Pulse Pulse Resp BP BP Pulse Ox 02/10/23 18:16 93 H 02/10/23 18:11 87 20 137/86 98 02/10/23 18:11 87 20 98 02/10/23 17:09 74 20 123/84 98 02/10/23 11:38 35.9 C L 115 H 18 120/64 96 O2 Del Method 02/10/23 18:16 02/10/23 18:11 Room Air 02/10/23 18:11 Room Air 02/10/23 17:09 Room Air 02/10/23 11:38 PG Care Time/CCT Total # of Minutes Spent Total Time Spent with Patient: Total time spent is greater than 50% in coordination of care (as documented) at patient's floor/unit and/or counseling patient: Coding Level of Care Code 25397 IN/OBS CONSULT LVL 5,80M Diagnoses Abscess and cellulitis of gluteal region L02.31; L03.317
[2023-02-11] MEDS: rOPINIRole HCL 1 MG TABLET PO SCH ×2 (00:14→21:05)
[2023-02-11] MEDS: lamoTRIgine 100 MG TAB PO SCH ×3 (00:15→21:04)
[2023-02-11] MEDS: GABAPENTIN 400 MG CAP PO SCH ×4 (00:15→21:05)
[2023-02-11] MEDS: CIPROFLOXACIN / D5W 400 MG/200 ML BAG IV SCH ×3 (00:17→23:10)
[2023-02-11] MEDS: metroNIDAZOLE 500 MG/100 ML BAG IV SCH ×4 (00:22→21:04)
[2023-02-11] MEDS: METOCLOPRAMIDE HCL 10 MG TABLET PO SCH ×5 (00:23→21:05)
[2023-02-11] MEDS: INSULIN ASPART PER UNIT CHARGE SC SCH ×5 (00:32→21:06)
--- NOTE | 2023-02-11 05:59 | Pharmacy Report ---
Pharmacy Glycemic Short Note 2 - Date of Service February 11, 2023 - Glycemic Short BSG Results (Last 24 hours): 02/10/23 02/10/23 02/11/23 13:20 21:40 00:21 Glucose 173 H POC Glucose 83 161 H OUTPATIENT ANTIDIABETIC REGIMEN: * Lantus 45 units SQ qPM * Admelog 14-50 units SQ TID, plus correction factor 50mg/dL/unit for BSG > 150mg/dL * Metformin 1 gm PO qAM * HbA1c: pending with AM labs ASSESSMENT: * Mr Anderson is a 52yo diabetic M admitted with gluteal abscess/cellulitis. * Pt is NPO for possible OR 02/11. * Pt is receiving IV vancomycin, cipro, metronidazole. * SQ insulin regimen ordered somewhat conservatively on admission d/t NPO status. * Pharmacy will continue to follow and adjust regimen as indicated. PLAN FOR INPATIENT GLYCEMIC CONTROL: * Hold outpatient oral diabetes medications * Basal insulin * Lantus 30 units SQ x1 dose * Bolus insulin * NovoLog per scale ACHS or Q6hrs while NPO * Goal Range: Low 110 mg/dL - High 140 mg/dL * Correction Factor: 20 mg/dL/unit * Nutritional / Prandial insulin per carb ratio of 1 unit per 7 grams CHO consumed
--- NOTE | 2023-02-11 06:13 | Pharmacy Report ---
Pharmacy PK ABX Note - Date of Service February 11, 2023 - Assessment and Plan Assessment * Mr Anderson is a 52 year old M receiving vanc/cipro/metronidazole for treatment of gluteal abscess/cellulitis. * Blood cx pending * PMH is significant for DM. * Surgery has been consulted and pt is being evaluated for abscess drainage via IR or I&D. Plan Vancomycin * Loading dose: 1750 mg IV x 1 * Maintenance dose: 1000 mg IV every 12 hours * Regimen is predicted to achieve target AUC/KATHLEEN of 400-600 mg/L.hr * Will evaluate a vanc level in 1-2 days Flagyl 500mg IV q8h Cipro 400mg IV q12h Pharmacy will continue to follow and will adjust dose/frequency as necessary. Thank you. Pharmacy has transitioned to AUC monitoring for vancomycin. AUC/KATHLEEN is the preferred PK/PD target and is associated with decreased risk of nephrotoxicity compared to traditional trough targets.
[2023-02-11] MEDS: VANCOMYCIN HCL 1,000 MG in SODIUM CHLORIDE 0.9% 250 ML IV SCH ×2 (06:34→17:28)
[2023-02-11 06:39] LABS: Hematocrit (blood only) 37.8 % (42.0-52.0); Hemoglobin 12.8 g/dl (14.0-18.0); Mean Corpuscular Hemoglobin 26.5 pg (25.0-34.0); Mean Corpuscular Hgb Conc 33.9 g/dL (32.0-36.0); Mean Corpuscular Volume 78.3 fL (80.0-100.0); Mean Platelet Volume 8.3 fL (9.4-12.4); Platelet Count 587 K/uL (130-400); RDW Coefficient of Variation 13.4 % (11.5-14.5); RDW Standard Deviation 38.4 fL (36.4-46.3); Red Blood Count 4.83 M/uL (4.70-6.10); White Blood Count 7.81 K/ul (4.8-10.8)
[2023-02-11 06:57] LABS: Albumin Globulin Ratio 0.7 (0.9-2); Albumin Level 2.9 gm/dl (3.4-5.0); BUN Creatinine Ratio 7.5 (10-20); Bilirubin,Total 0.2 mg/dl (0.2-1.0); Calcium 8.7 mg/dl (8.6-10.3); Est GFR (Non-African American) 79.4 ml/min; Globulin 4.2 gm/dl (2.5-4.0); Potassium 3.9 mmol/L (3.5-5.1); Total Protein 7.1 gm/dl (6.0-8.3)
[2023-02-11 08:27] LABS: Estimated Average Glucose 200 mg/dl; Hemoglobin A1C 8.6 % (4.5-5.6)
[2023-02-11] MEDS: LOSARTAN POTASSIUM 50 MG TAB PO SCH (08:33)
[2023-02-11] MEDS: hydrOXYzine HCl 25 MG TAB PO SCH (08:33)
[2023-02-11] MEDS: FLUoxetine HCL 20 MG CAP PO SCH (08:33)
[2023-02-11] MEDS: ATORVASTATIN 40 MG TAB PO SCH (08:33)
[2023-02-11] MEDS: CYANOCOBALAMIN (B-12) 500 MCG TABLET PO SCH (08:33)
[2023-02-11] MEDS: buPROPion XL 300 MG TABCR PO SCH (08:33)
[2023-02-11] MEDS: UMECLIDINIUM/VILANTEROL 62.5/25MCG 7 PUFFS/INHALER INH SCH (08:34)
[2023-02-11] MEDS: PANTOprazole 40 MG TAB PO SCH (08:34)
[2023-02-11] MEDS: MAGNESIUM OXIDE 400 MG TAB PO SCH (08:34)
[2023-02-11] MEDS: NICOTINE 21 MG/24 HR TDSY TD SCH (09:32)
[2023-02-11] MEDS ORDERED: MIDAZOLAM HCL 1 MG/ML 2ML VIAL ONE (11:29)
[2023-02-11] MEDS ORDERED: fentaNYL citrate PF 100 MCG/2 ML VIAL ONE (11:29)
--- NOTE | 2023-02-11 11:38 | Surgery Progress Note ---
Date of Service February 11, 2023 Assessment & Plan (1) Abscess and cellulitis of gluteal region: Plan: Pilonidal/gluteal abscess Plan for incision and drainage of pilonidal/gluteal abscess Risk of the procedure discussed to include but not limited to bleeding, infec tion, recurrence, damage surrounding structures, need for future more extensive surgery, prolonged wound healing, and the risk of anesthesia Appreciate medicine assistance with this patient (2) Cellulitis: (3) Insulin dependent type 2 diabetes mellitus: (4) HTN (hypertension): (5) HLD (hyperlipidemia): Admission and Anticipated Discharge Date Admission Date: February 10, 2023 Subjective 52-year-old admitted with pilonidal/gluteal abscess with cellulitis. Physical Exam Constitutional: WD/WN, vitals as above + obese Skin: no rashes, warm and dry Significant excoriation of bilateral buttocks along gluteal cleft. Apparent pilonidal disease. Pilonidal/gluteal abscess extending to the left of midline. Results & Data Vital Signs (Past 12 Hours) Vital Signs Temp Pulse Pulse Pulse Resp BP BP 02/11/23 11:22 36.8 C 93 H 18 141/86 H 02/11/23 08:03 36.6 C 86 21 146/78 H 02/11/23 07:37 93 H 02/11/23 03:00 36.7 C 86 18 164/90 H Pulse Ox O2 Del Method 02/11/23 11:22 96 Room Air 02/11/23 08:03 94 Room Air 02/11/23 07:37 02/11/23 03:00 94 Room Air Diagnostic Findings ABDOMEN AND PELVIS CT WITH IV CONTRAST CT DOSE: 1614.75 mGy.cm HISTORY: Acute lower pelvic/rectal pain eval for rectal/pilonidal abscess TECHNIQUE: Multiaxial CT images of the abdomen and pelvis were performed following the IV administration of 88 cc of Optiray, A dose lowering technique was utilized adhering to the principles of ALARA. COMPARISON STUDY: Chest radiograph 12/01/2022 FINDINGS: Mild patchy subsegmental bibasilar groundglass densities. No pneumatosis or pneumoperitoneum. Gynecomastia. The spleen is mildly enlarged, 14.5 cm. Mildly atrophic pancreas. Unremarkable adrenal glands. Cholelithiasis. Mildly enlarged liver. Patent portal vein. Unremarkable kidneys. 2 cm cyst of the superior pole left kidney. No hydronephrosis. Unremarkable urinary bladder. Atherosclerosis of the aorta without aneurysm. Subcentimeter retroperitoneal lymph nodes are likely reactive. Nonspecific distal esophageal wall thickening. No bowel obstruction or bowel wall thickening. Colonic diverticulosis. Normal appendix. There is moderate focal cellulitis changes within the subcutaneous left gluteal tissues. There is a peripherally enhancing air and fluid filled collection in the left subcutaneous gluteal tissues on image 23 measuring 5.3 x 2.5 x 6.0 cm with a sinus tract on image 268 extending to the medial gluteal cleft no extension to the perianal tissues. No acute fracture or osseous erosion. IMPRESSION: 1. Left gluteal cellulitis with subcutaneous 6 cm abscess. There is an associated sinus tract which appears to communicate with the medial gluteal cleft. 2. No perianal involvement or supralevator extension. 3. No bowel obstruction or bowel wall thickening. 4. Cholelithiasis. 5. Mild subsegmental bibasilar groundglass densities are suspicious for a nonspecific infectious or inflammatory pneumonitis such as viral pneumonia. 6. Additional findings as above. PG Care Time/CCT Total # of Minutes Spent Total Time Spent with Patient: Total time spent is greater than 50% in coordination of care (as documented) at patient's floor/unit and/or counseling patient: Coding Level of Care Code 65668 SUB INP/OBS CARE MIN Diagnoses Abscess and cellulitis of gluteal region L02.31; L03.317 Cellulitis L03.317 Site of cellulitis: buttock Insulin dependent type 2 diabetes mellitus E11.9; Z79.4 HTN (hypertension) I10 HLD (hyperlipidemia) E78.5 (2) Cellulitis Site of cellulitis: buttock Qualified Code(s): L03.317 - Cellulitis of buttock
[2023-02-11] MEDS ORDERED: LIDOCAINE 1%/EPINEPHRINE 1:100,000 20 ML VIAL ONE (11:40)
[2023-02-11] MEDS ORDERED: BUPIVACAINE 0.5 % 5 MG/1 ML MPF 30ML VIAL ONE (11:40)
[2023-02-11] MEDS ORDERED: BUPIVACAINE LIPOSOME 1.3% 266 MG/20 ML VIAL ONE (11:40)
[2023-02-11] MEDS ORDERED: ROCURONIUM BROMIDE 10 MG/ML 5 ML VIAL IV ONE (12:57)
[2023-02-11] MEDS ORDERED: LIDOCAINE 2% 2 ML VIAL/AMP(20MG/ML) INFIL ONE (12:57)
[2023-02-11] MEDS ORDERED: ONDANSETRON INJ 2 MG/ML 2 ML VIAL ONE ×2 (12:57→13:02)
[2023-02-11] MEDS ORDERED: DEXAMETHASONE SOD INJ 4 MG/ML VIAL ONE (12:57)
[2023-02-11] MEDS ORDERED: PROPOFOL IV EMULSION 10 MG/ML 20 ML VIAL IV ONE (12:57)
[2023-02-11] MEDS ORDERED: SUGAMMADEX SODIUM 200 MG/2 ML VIAL IV ONE (13:02)
--- NOTE | 2023-02-11 13:15 | Operative Report ---
PG Post Operative Report Pre & Post Diagnosis Operation Date: 02/11/23 08:20 Preop diagnosis: Pilonidal abscess Postop diagnosis: Pilonidal abscess I identified the patient and participated in the time-out.: Yes Procedure Operation Date: 02/11/23 08:20 Actual Procedures p Incision and Drainage Gluteal Absces with excision of Pilonidal Cyst(Not Applicable) - Darrion Gorman DO, FATUMA Surgeon Darrion Gorman DO, FATUMA Clamshell Engineer Cathy Churchill Estimated Blood Loss 5 Findings Consistent with Post-Op Diagnosis Area along the midline cleft containing pilonidal pits excised and extended into abscess cavity. Abscess cavity measured 6 cm with tunneling. Hemostasis achieved, Exparel injected, wound packed with Kerlix. Specimens Pilonidal abscess Anesthesia Type General Complications none Disposition Accompanied Patient To Recovery: No Disposition: Recovery Room Indications 52-year-old male presented with signs symptoms of a gluteal abscess secondary to pilonidal disease. Plan for incision and drainage of gluteal/pilonidal abscess. The risks of the procedure were discussed, all questions were answered, and the patient agreed to proceed with surgery as planned. Description of Procedure The patient was properly identified, consented, and taken to the operating room where general endotracheal anesthesia was induced. He was placed in the prone jackknife position. Preoperative antibiotics were administered. The patient's buttocks were secured with tape to expose the midline cleft. The patient's lower back and buttocks were prepped and draped in the standard sterile fashion. Surgical timeout was performed and all parties were in agreement that this was the correct patient and procedure to be performed and we continued as planned. Local anesthetic was injected in the form of 1% lidocaine with epinephrine along the proposed incision. An elliptical incision was made around the midline cleft to incorporate the majority of the pilonidal sinuses. This was deepened down to the perisacral tissue and resected. This was extended into the gluteal/pilonidal abscess that tracked to the left. This space was opened and the abscess cavity was encountered. Copious purulent drainage was expressed. The incision was then extended down into the left to open up the abscess tract more. Once this was completed hemostasis was achieved and within the wound. Exparel was injected. The wound was irrigated copiously. After confirming hemostasis, the wound was packed with moistened Kerlix gauze. Fluffed gauze, an ABD, and disposable knit underwear were placed. The abscess cavity and wound tract 6 cm inferior and laterally, and measured 5 cm x 6 cm in size. The patient was placed back in the supine position. Anesthesia was ceased. The patient was transferred to the PACU for recovery in stable condition. All sponge, instrument, and needle counts were correct at the conclusion of the procedure. The patient tolerated the procedure well. The physician's orthotics prosthetics assistant was present and scrubbed for the entire the case. She was critical in positioning the patient, prepping and draping, retraction and exposure, excision of this cyst and opening the abscess, placement of the dressings. I attest to the content of the Intraoperative Record and any orders documented therein. Any exceptions are noted below.
--- NOTE | 2023-02-11 13:30 | Pharmacy Report ---
Pharmacy Glycemic Short Note 2 - Date of Service February 11, 2023 - Glycemic Short BSG Results (Last 24 hours): 02/10/23 02/10/23 02/11/23 13:20 21:40 00:21 Glucose 173 H POC Glucose 83 161 H 02/11/23 02/11/23 02/11/23 05:58 06:23 11:24 Glucose 65 L POC Glucose 72 91 02/11/23 13:15 Glucose POC Glucose 150 H OUTPATIENT ANTIDIABETIC REGIMEN: * Lantus 45 units SQ qPM * Admelog 14-50 units SQ TID, plus correction factor 50mg/dL/unit for BSG > 150mg/dL * Metformin 1 gm PO qAM HbA1c: 8.6% (02/11/23) ASSESSMENT: 02/11/23: * POD #0 s/p I&D of gluteal abscess * Patient received 30 units of basal last evening w/ fasting BSG of 72 mg/dL * Will decrease basal insulin this evening * Diet ordered postoperatively Background: * Mr Anderson is a 52yo diabetic M admitted with gluteal abscess/cellulitis. * Pt is NPO for possible OR 02/11. * Pt is receiving IV vancomycin, cipro, metronidazole. * SQ insulin regimen ordered somewhat conservatively on admission d/t NPO status. * Pharmacy will continue to follow and adjust regimen as indicated. PLAN FOR INPATIENT GLYCEMIC CONTROL: * Hold outpatient oral diabetes medications * Basal insulin * Lantus 10-22 units SC HS x 1 (to provide dose up to ~75% of yesterday's basal) * Bolus insulin * NovoLog per scale ACHS or Q6hrs while NPO * Goal Range: Low 110 mg/dL - High 140 mg/dL * Correction Factor: 25 mg/dL/unit * Nutritional / Prandial insulin per carb ratio of 1 unit per 8 grams CHO consumed
[2023-02-11] MEDS ORDERED: ALBUT/IPRATROP 3MG/0.5MG NEB 3 ML VIAL ONE (13:31)
[2023-02-11] MEDS ORDERED: ALBUT/IPRATROP 3MG/0.5MG NEB 3 ML VIAL NEB STA (13:32)
--- NOTE | 2023-02-11 13:50 | Anesthesiology Consultation ---
Date of Service February 11, 2023 Assessment & Plan Chart Review Chart Review: Acceptable Risk for Surgery Consults Requested none History Surgery Operation Date: 02/11/23 08:20 Proposed Procedures p Incision and Drainage Gluteal Abscess/Pilonidal Cyst - Darrion Gorman, , FACS Height/Weight Height: 5 ft 8 in Weight: 94.3 kg Allergies Allergy/AdvReac Type Severity Reaction Status Date / Time Penicillins Allergy Severe THROAT Verified 02/10/23 17:19 CLOSING bee venom protein (honey bee) Allergy SWELLING Verified 02/10/23 17:19 liraglutide [From Victoza] AdvReac Difficulty Verified 02/10/23 17:19 Breathing Sulfa (Sulfonamide AdvReac Gastrointestinal Verified 02/10/23 17:19 Antibiotics) Upset Medications Home Medications Medication Instructions Recorded Confirmed Last Taken acetaminophen 650 mg 650 mg PO BID PRN Pain 12/03/22 02/10/23 Unknown tablet,extended release albuterol sulfate 90 mcg/actuation 2 puff inhalation QID PRN 12/03/22 02/10/23 Unknown aerosol inhaler Shortness Of Breath aspirin 81 mg chewable tablet 81 mg PO DAILY 12/03/22 02/10/23 Unknown atorvastatin 40 mg tablet 40 mg PO DAILY 12/03/22 02/10/23 Unknown bupropion HCl 300 mg 24 hr tablet, 300 mg PO DAILY 12/03/22 02/10/23 Unknown extended release cyanocobalamin (vitamin B-12) 1,000 mcg PO DAILY 12/03/22 02/10/23 Unknown 1,000 mcg tablet cyclobenzaprine 10 mg tablet 10 mg PO HS PRN .restless leg 12/03/22 02/10/23 Unknown epinephrine 0.3 mg/0.3 mL 0.3 mg IM DIRECTED PRN severe 12/03/22 02/10/23 Unknown injection, auto-injector reaction fluoxetine 40 mg capsule 40 mg PO DAILY 12/03/22 02/10/23 Unknown gabapentin 400 mg capsule 400 mg PO TID 12/03/22 02/10/23 Unknown glycopyrrolate 9 mcg-formoterol 2 puff inhalation AMHS 12/03/22 02/10/23 Unknown 4.8 mcg HFA aerosol inhaler (Bevespi Aerosphere) hydroxyzine HCl 25 mg tablet 25 mg PO QAM 12/03/22 02/10/23 Unknown ibuprofen 800 mg tablet 800 mg PO TID PRN Pain 12/03/22 02/10/23 Unknown insulin glargine 100 unit/mL (3 45 unit subcut QPM 12/03/22 02/10/23 Unknown mL) subcutaneous pen (Lantus Solostar U-100 Insulin) insulin lispro 100 unit/mL 14 - 50 unit subcut TID 12/03/22 02/10/23 Unknown subcutaneous pen (Admelog SoloStar U-) lamotrigine 200 mg tablet 200 mg PO AMHS 12/03/22 02/10/23 Unknown loratadine 10 mg tablet 10 mg PO DAILY 12/03/22 02/10/23 Unknown losartan 50 mg tablet 50 mg PO QAM 12/03/22 02/10/23 Unknown magnesium oxide 500 mg capsule 500 mg PO DAILY 12/03/22 02/10/23 Unknown metformin 500 mg tablet 1,000 mg PO QAM 12/03/22 02/10/23 Unknown metoclopramide HCl 10 mg tablet 10 mg PO TID 12/03/22 02/10/23 Unknown metoclopramide HCl 10 mg tablet 20 mg PO HS 12/03/22 02/10/23 Unknown pantoprazole 40 mg tablet,delayed 40 mg PO QAM 12/03/22 02/10/23 Unknown release quetiapine 25 mg tablet 25 mg PO QID PRN Anxiety 12/03/22 02/10/23 Unknown ropinirole 1 mg tablet See Rx Instructions .Route .COMPLEX 12/03/22 02/10/23 Unknown ropinirole 2 mg tablet See Rx Instructions .Route .COMPLEX 12/03/22 02/10/23 Unknown Active Medications Generic Name Dose Route Start Last Admin Trade Name Cipriano PRN Reason Stop Dose Admin Atorvastatin Calcium 40 mg 02/11/23 09:00 02/11/23 08:33 Atorvastatin 40 Mg Tab PO 03/13/23 08:59 40 mg DAILY FERNANDEZ Administration Bupropion HCl 300 mg 02/11/23 09:00 02/11/23 08:33 Bupropion Xl 300 Mg Tabcr PO 03/13/23 08:59 300 mg DAILY FERNANDEZ Administration Cyanocobalamin 1,000 mcg 02/11/23 09:00 02/11/23 08:33 Cyanocobalamin (B-12) 500 Mcg Tablet PO 03/13/23 08:59 1,000 mcg DAILY FERNANDEZ Administration Fluoxetine HCl 40 mg 02/11/23 09:00 02/11/23 08:33 Fluoxetine Hcl 20 Mg Cap PO 03/13/23 08:59 40 mg DAILY FERNANDEZ Administration Gabapentin 400 mg 02/10/23 21:00 02/11/23 08:33 Gabapentin 400 Mg Cap PO 03/12/23 20:59 400 mg TID FERNANDEZ Administration Hydroxyzine HCl 25 mg 02/11/23 09:00 02/11/23 08:33 Hydroxyzine Hcl 25 Mg Tab PO 03/13/23 08:59 25 mg QAM FERNANDEZ Administration Vancomycin HCl 1,000 mg/ 270 mls @ 200 mls/hr 02/11/23 06:00 02/11/23 08:03 Sodium Chloride IV 02/18/23 05:59 Infused Q12H FERNANDEZ Infusion Ciprofloxacin 400 mg in 200 mls @ 100 mls/hr 02/10/23 23:00 02/11/23 12:18 Cipro / D5w IV 02/17/23 22:59 100 mls/hr Q12H FERNANDEZ Administration Protocol Metronidazole 500 mg in 100 mls @ 100 mls/hr 02/10/23 22:00 02/11/23 07:35 Flagyl IV 02/17/23 21:59 Infused Q8H FERNANDEZ Infusion Protocol Insulin Aspart 0 units 02/11/23 00:00 02/11/23 11:41 Insulin Aspart Per Unit Charge SC 03/13/23 00:00 Not Given Q6 FERNANDEZ Lamotrigine 200 mg 02/10/23 21:00 02/11/23 08:33 Lamotrigine 100 Mg Tab PO 03/12/23 20:59 200 mg BID FERNANDEZ Administration Losartan Potassium 50 mg 02/11/23 09:00 02/11/23 08:33 Losartan Potassium 50 Mg Tab PO 03/13/23 08:59 50 mg QAM FERNANDEZ Administration Magnesium Oxide 400 mg 02/11/23 09:00 02/11/23 08:34 Magnesium Oxide 400 Mg Tab PO 03/13/23 08:59 400 mg DAILY FERNANDEZ Administration Metoclopramide HCl 10 mg 02/11/23 07:30 02/11/23 06:33 Metoclopramide Hcl 10 Mg Tablet PO 03/13/23 07:29 10 mg AC FERNANDEZ Administration Metoclopramide HCl 20 mg 02/10/23 21:00 02/11/23 00:23 Metoclopramide Hcl 10 Mg Tablet PO 03/12/23 20:59 20 mg HS FERNANDEZ Administration Miscellaneous 1 each 02/11/23 08:59 02/11/23 08:32 Remove Nicoderm Patch N/A 03/13/23 08:58 1 each DAILY@0859 FERNANDEZ Administration Nicotine 21 mg 02/11/23 09:00 02/11/23 09:32 Nicotine 21 Mg/24 Hr Tdsy TD 03/13/23 08:59 21 mg QAM FERNANDEZ Administration Pantoprazole Sodium 40 mg 02/11/23 09:00 02/11/23 08:34 Pantoprazole 40 Mg Tab PO 03/13/23 08:59 40 mg QAM FERNANDEZ Administration Ropinirole HCl 3 mg 02/10/23 21:00 02/11/23 00:14 Ropinirole Hcl 1 Mg Tablet PO 03/12/23 20:59 3 mg HS FERNANDEZ Administration Umeclidinium/Vilanterol 1 puffs 02/11/23 09:00 02/11/23 08:34 Umeclidinium/Vilanterol 62.5/25mcg 7 Puffs/Inhaler INH 03/13/23 08:59 1 puffs DAILY FERNANDEZ Administration NPO Date Last Intake of Fluids: 02/10/23 Time Last Intake of Fluids: 22:00 Date Last Intake of Solids: 02/10/23 Time Last Intake of Solids: 22:00 Past Medical History Medical History Abscess and cellulitis of gluteal region Depression GERD (gastroesophageal reflux disease) HLD (hyperlipidemia) HTN (hypertension) Insulin dependent type 2 diabetes mellitus Past Family History Family History Other COPD (chronic obstructive pulmonary disease) Diabetes Past Surgical History Surgical History No pertinent past surgical history Social History Smoking Status: Current every day smoker tobacco type: cigarettes Do You Dip or Chew Tobacco: No Hx Alcohol Use: No Hx Substance Use: No Physical Exam Vital Signs Last Vital Signs Temp 36.0 C L 02/11/23 13:12 Pulse 96 H 02/11/23 13:30 Resp 19 02/11/23 13:40 BP 128/77 02/11/23 13:40 Pulse Ox 100 02/11/23 13:40 O2 Del Method Nebulizer 02/11/23 13:40 O2 Flow Rate 10 02/11/23 13:40 Testing Laboratory Results 02/11/23 05:58 02/11/23 05:58 Hemoglobin A1c 8.6 % (4.5-5.6) H 02/11/23 05:58 02/11/23 02/11/23 02/11/23 13:15 11:24 06:23 POC Glucose 150 H 91 72
--- NOTE | 2023-02-11 13:52 | Anesthesiology Progress Note ---
Date of Service February 11, 2023 Anesthesia Post Procedure Vital Signs Vital Signs: Temp Pulse Pulse Pulse Resp BP BP 02/11/23 13:40 19 128/77 02/11/23 13:30 96 H 19 115/81 02/11/23 13:20 101 H 19 128/87 02/11/23 13:12 36.0 C L 103 H 13 143/103 H 02/11/23 11:22 36.8 C 93 H 18 141/86 H 02/11/23 08:03 36.6 C 86 21 146/78 H 02/11/23 07:37 93 H 02/10/23 21:30 36.7 C 98 H 18 148/89 H 02/11/23 03:00 36.7 C 86 18 164/90 H 02/10/23 22:17 85 02/10/23 21:32 90 02/10/23 18:16 93 H 02/10/23 18:11 87 20 137/86 02/10/23 18:11 87 20 02/10/23 17:09 74 20 123/84 Pulse Ox O2 Del Method O2 Flow Rate 02/11/23 13:40 100 Nebulizer 10 02/11/23 13:30 95 Nasal Cannula 2 02/11/23 13:20 95 Nasal Cannula 4 02/11/23 13:12 97 Nasal Cannula 4 02/11/23 11:22 96 Room Air 02/11/23 08:03 94 Room Air 02/11/23 07:37 02/10/23 21:30 96 Room Air 02/11/23 03:00 94 Room Air 02/10/23 22:17 02/10/23 21:32 02/10/23 18:16 02/10/23 18:11 98 Room Air 02/10/23 18:11 98 Room Air 02/10/23 17:09 98 Room Air Pain Intensity Buttock: Pain Intensity: 8 Transfer of Care Handoff Completed per policy Notes Mental Status: alert / awake / arousable and participated in evaluation Patient Amnestic to Procedure: Yes Nausea / Vomiting: adequately controlled Pain: adequately controlled Airway Patency, RR, SpO2: stable & adequate BP & HR: stable & adequate Hydration State: stable & adequate Anesthetic Complications: no major complications apparent
[2023-02-11 14:08] LABS: A calco-baum cmplx NotReported Not Detected (NotDetected); Bact fragilis Not Reported Not Detected (NotDetected); C auris Not Reported Not Detected (NotDetected); Calbicans Not Reported Not Detected (NotDetected); Candida glabrata Not Reported Not Detected (NotDetected); Candida krusei Not Reported Not Detected (NotDetected); Cneoformans/gatti Not Reported Not Detected (NotDetected); Cparapsilosis Not Reported Not Detected (NotDetected); Ctropicalis Not Reported Not Detected (NotDetected); E cloacae compx Not Reported Not Detected (NotDetected); Efaecalis Not Reported Not Detected (NotDetected); Efaecium Not Reported Not Detected (NotDetected); Enterobacterales Not Reported Not Detected (NotDetected); Escherichia coli Not Reported Not Detected (NotDetected); H influenzae Not Reported Not Detected (NotDetected); K aerogenes Not Reported Not Detected (NotDetected); Koxytoca Not Reported Not Detected (NotDetected); Kpneumoniae grp Not Reported Not Detected (NotDetected); Lmonocyt Not Reported Not Detected (NotDetected); N meningitidis Not Reported Not Detected (NotDetected); P aeruginosa Not Reported Not Detected (NotDetected); Proteus spp Not Reported Not Detected (NotDetected); Salmonella spp Not Reported Not Detected (NotDetected); Smarcescens Not Reported Not Detected (NotDetected); Staph lugdunensis Not Reported Not Detected (NotDetected); Staph spp. Not Reported DETECTED (NotDetected); Staphaureus Not Reported Not Detected (NotDetected); Staphepi Not Reported DETECTED (NotDetected); Staphylococcus spp. DETECTED (NotDetected); Stenmaltophilia Not Reported Not Detected (NotDetected); Strep agal(GrpB) Not Reported Not Detected (NotDetected); Strep pneum Not Reported Not Detected (NotDetected); Strep pyog (GrpA) Not Reported Not Detected (NotDetected); Strep spp Not Reported Not Detected (NotDetected); mecAC Resistant Gene DETECTED (NotDetected)
[2023-02-11] MEDS ORDERED: oxyCODONE HCL IR 5 MG TAB (IMMEDIATE RELEASE) PO PRN (14:14)
[2023-02-11] MEDS ORDERED: MoRPHine SULFATE 2 MG/ML CARP IV PRN (14:14)
--- NOTE | 2023-02-11 14:22 | Hospitalist Progress Note ---
Date of Service February 11, 2023 Assessment & Plan (1) Abscess and cellulitis of gluteal region: (2) Insulin dependent type 2 diabetes mellitus: (3) HTN (hypertension): (4) HLD (hyperlipidemia): (5) Depression: (6) GERD (gastroesophageal reflux disease): Plan 52-year-old male presented from PCP with rectal pain and swelling. Known pilonidal cysts that he describes drain on their own. Abdomen/pelvic CT: There is a peripherally enhancing air and fluid filled collection in the left subcutaneous gluteal tissues on image 23 measuring 5.3 x 2.5 x 6.0 cm with a sinus tract on image 268 extending to the medial gluteal cleft no extension to the perianal tissues. No acute fracture or osseous erosion. Left gluteal cellulitis with subcutaneous 6 cm abscess. There is an associated sinus tract which appears to communicate with the medial gluteal cleft. Abscess and cellulitis of gluteal region status post I&D on February 11, 2023 Patient presented with rectal pain and swelling Was remarkable for leukocytosis of 12,000 Abdomen/pelvic CT personally reviewed; there is a peripherally enhancing air/fluid filled collection in the left subcutaneous gluteal tissues on image 23 measuring 5.3 x 2.5 x 6.0 cm with a sinus tract extending to the medial gluteal cleft no extension to the perianal tissues. General surgery on board; patient underwent I&D today. Currently on vancomycin, Cipro and Flagyl. Await Intra-Op culture and sensit ivity. Consult wound care management tomorrow a.m. Dressing changes as per surgery Hyponatremia: Sodium of 130 on admission; improved with IV hydration. History of chronic hyponatremia Monitor BMP daily. Insulin-dependent diabetes type 2 with neuropathy: Takes metformin; hold while inpatient Takes Gabapentin; continue Scheduled lispro 50 units 3 times daily; keep on sliding scale and carb coverage while inpatient Last A1c: 08/2022 7.2; A1c during the hospitalization is 8.6% Serum glucose 173 diabetic diet; Glycemic Pharmacy HTN: Takes Losartan; continue HLD: Takes atorvastatin; continue Bipolar disorder: Depression: Follows with Psych in [place]; Last appt 12/31/22. Prescribed Wellbutrin, Lamictal, Seroquel (PRN), Prozac, hydroxyzine; continue Has not had any recent visual or auditory hallucinations. GERD: Takes pantoprazole; continue Disposition: PCP: Dr. Schuler CODE STATUS: Full code VTE prophylaxis: Teds and SCDs for now Time spent evaluating patient, direct bedside care, chart review, placing orders, interpretation of diagnostic studies, discussion with consultants, patient, and family members, as well as other required patient management activities is 60 minutes. Please note the above document was generated using voice recognition software. It may contain grammatical, syntax or spelling errors. Any formal questions or concerns about the content, text or information contained within the body of this dictation should be directly addressed to the provider for clarification Admission and Anticipated Discharge Date Admission Date: February 10, 2023 Subjective Patient seen and examined at bedside. Reports pain in his buttock region. Afebrile overnight; hemodynamically stable Review of Systems Review of Systems: All systems reviewed & are unremarkable except as noted in Subjective Physical Exam Physical Exam: Neuro: AAOx4, PERRLA, no aphagia, memory changes, CNII-XII grossly intact HEENT: head normocephalic, moist mucus membranes CV: S1/S2, (-) M/G/R, (-) edema, cap refill < 3 seconds Resp: Lungs CTA in all [place]. On RA GI: Abdomen S/NT/ND, Ax4 bowel sounds, (-) CVA tenderness Musculoskeletal: 5/5 B/L UE strength, 5/5 B/L LE strength. No gait disturbance Skin: Large indurated area in the superior aspect of the left medial gluteal region. Psych: euthymic mood Results & Data Results & Data Vital Signs (Past 12 Hours) Vital Signs Temp Pulse Pulse Pulse Resp BP BP 02/11/23 14:00 95 H 21 117/72 02/11/23 13:50 36.2 C L 95 H 14 110/89 02/11/23 13:40 19 128/77 02/11/23 13:30 96 H 19 115/81 02/11/23 13:20 101 H 19 128/87 02/11/23 13:12 36.0 C L 103 H 13 143/103 H 02/11/23 11:22 36.8 C 93 H 18 141/86 H 02/11/23 08:03 36.6 C 86 21 146/78 H 02/11/23 07:37 93 H 02/11/23 03:00 36.7 C 86 18 164/90 H Pulse Ox O2 Del Method O2 Flow Rate 02/11/23 14:00 94 Nasal Cannula 2 02/11/23 13:50 96 Nasal Cannula 2 02/11/23 13:40 100 Nebulizer 10 02/11/23 13:30 95 Nasal Cannula 2 02/11/23 13:20 95 Nasal Cannula 4 02/11/23 13:12 97 Nasal Cannula 4 02/11/23 11:22 96 Room Air 02/11/23 08:03 94 Room Air 02/11/23 07:37 02/11/23 03:00 94 Room Air Laboratory Results Laboratory Results WBC 7.81 K/ul (4.8-10.8) 02/11/23 05:58 RBC 4.83 M/uL (4.70-6.10) 02/11/23 05:58 Hgb 12.8 g/dl (14.0-18.0) L 02/11/23 05:58 Hct 37.8 % (42.0-52.0) L 02/11/23 05:58 MCV 78.3 fL (80.0-100.0) L 02/11/23 05:58 MCH 26.5 pg (25.0-34.0) 02/11/23 05:58 MCHC 33.9 g/dL (32.0-36.0) 02/11/23 05:58 RDW Std Deviation 38.4 fL (36.4-46.3) 02/11/23 05:58 RDW Coeff of Estefania 13.4 % (11.5-14.5) 02/11/23 05:58 Plt Count 587 K/uL (130-400) H 02/11/23 05:58 MPV 8.3 fL (9.4-12.4) L 02/11/23 05:58 Immature Gran % (Auto) 1.0 % 02/10/23 13:20 Neut % (Auto) 63.3 % 02/10/23 13:20 Lymph % (Auto) 24.4 % 02/10/23 13:20 [place] % (Auto) 5.4 % 02/10/23 13:20 Eos % (Auto) 4.1 % 02/10/23 13:20 Baso % (Auto) 1.8 % 02/10/23 13:20 Neut # (Auto) 7.48 K/uL (1.40-6.50) H 02/10/23 13:20 Lymph # (Auto) 2.88 K/uL (1.2-3.4) 02/10/23 13:20 [place] # (Auto) 0.64 K/uL (0.11-0.59) H 02/10/23 13:20 Eos # (Auto) 0.49 K/uL (0-0.50) 02/10/23 13:20 Baso # (Auto) 0.21 K/uL (0-0.2) H 02/10/23 13:20 Immature Gran # (Auto) 0.12 K/uL (0.01-0.20) 02/10/23 13:20 Sodium 137 mmol/L (136-145) D 02/11/23 05:58 Potassium 3.9 mmol/L (3.5-5.1) 02/11/23 05:58 Chloride 108 mmol/L (98-107) H 02/11/23 05:58 Carbon Dioxide 27 mmol/L (21-32) 02/11/23 05:58 Anion Gap 2 (3-11) L 02/11/23 05:58 BUN 8 mg/dl (6-23) 02/11/23 05:58 Creatinine 1.07 mg/dl (0.6-1.4) 02/11/23 05:58 Est Cr Clr Drug Dosing 90.0 ml/min 02/11/23 05:58 Est GFR ( Amer) 92.0 ml/min 02/11/23 05:58 Est GFR (Non-Af Amer) 79.4 ml/min 02/11/23 05:58 BUN/Creatinine Ratio 7.5 (10-20) L 02/11/23 05:58 Glucose 65 mg/dl (70-99(Fasting)) L 02/11/23 05:58 POC Glucose 150 mg/dl (70-99) H 02/11/23 13:15 Estimat Average Glucose 200 mg/dl 02/11/23 05:58 Hemoglobin A1c 8.6 % (4.5-5.6) H 02/11/23 05:58 Lactate 1.0 mmol/L (0.4-2.0) 02/10/23 20:11 Calcium 8.7 mg/dl (8.6-10.3) 02/11/23 05:58 Total Bilirubin 0.2 mg/dl (0.2-1.0) 02/11/23 05:58 AST 11 U/L (13-39) L 02/11/23 05:58 ALT 8 U/L (7-52) 02/11/23 05:58 Alkaline Phosphatase 134 U/L (34-104) H 02/11/23 05:58 Total Protein 7.1 gm/dl (6.0-8.3) 02/11/23 05:58 Albumin 2.9 gm/dl (3.4-5.0) L 02/11/23 05:58 Globulin 4.2 gm/dl (2.5-4.0) H 02/11/23 05:58 Albumin/Globulin Ratio 0.7 (0.9-2) L 02/11/23 05:58 Impressions Abdomen/Pelvis CT 02/10/23 16:[address] WITH IV CONTRAST CT DOSE: 1614.75 mGy.cm HISTORY: Acute lower pelvic/rectal pain eval for rectal/pilonidal abscess TECHNIQUE: Multiaxial CT images of the abdomen and pelvis were performed following the IV administration of 88 cc of Optiray, A dose lowering technique was utilized adhering to the principles of ALARA. COMPARISON STUDY: Chest radiograph 12/01/2022 FINDINGS: Mild patchy subsegmental bibasilar groundglass densities. No pneumatosis or pneumoperitoneum. Gynecomastia. The spleen is mildly enlarged, 14.5 cm. Mildly atrophic pancreas. Unremarkable adrenal glands. Cholelithiasis. Mildly enlarged liver. Patent portal vein. Unremarkable kidneys. 2 cm cyst of the superior pole left kidney. No hydronephrosis. Unremarkable urinary bladder. Atherosclerosis of the aorta without aneurysm. Subcentimeter retroperitoneal lymph nodes are likely reactive. Nonspecific distal esophageal wall thickening. No bowel obstruction or bowel wall thickening. Colonic diverticulosis. Normal appendix. There is moderate focal cellulitis changes within the subcutaneous left gluteal tissues. There is a peripherally enhancing air and fluid filled collection in the left subcutaneous gluteal tissues on image 23 measuring 5.3 x 2.5 x 6.0 cm with a sinus tract on image 268 extending to the medial gluteal cleft no extension to the perianal tissues. No acute fracture or osseous erosion. IMPRESSION: 1. Left gluteal cellulitis with subcutaneous 6 cm abscess. There is an associated sinus tract which appears to communicate with the medial gluteal cleft. 2. No perianal involvement or supralevator extension. 3. No bowel obstruction or bowel wall thickening. 4. Cholelithiasis. 5. Mild subsegmental bibasilar groundglass densities are suspicious for a nonspecific infectious or inflammatory pneumonitis such as viral pneumonia. 6. Additional findings as above. ACT 112: Negative or not required by law. The above report was generated using voice recognition software. It may contain grammatical, syntax or spelling errors. Electronically signed by: Prince Underwood M.D. 02/10/2023 5:00 PM
[2023-02-11] MEDS ORDERED: Nursing to Pharmacy Communication SCH (14:30)
[2023-02-11 14:50] LABS: Staphylococcus epidermidis DETECTED (NotDetected)
[2023-02-11] MEDS ORDERED: INSULIN ASPART PER UNIT CHARGE SC ONE (15:00)
[2023-02-11] MEDS ORDERED: LANTUS PER UNIT CHARGE SQ ONE ×2 (21:00)
[2023-02-11] MEDS: oxyCODONE HCL IR 5 MG TAB (IMMEDIATE RELEASE) PO PRN (21:03)
[2023-02-11] MEDS: QUEtiapine FUMARATE 25 MG TABLET PO PRN (21:05)
[2023-02-12] MEDS: metroNIDAZOLE 500 MG/100 ML BAG IV SCH ×3 (06:00→22:52)
[2023-02-12] MEDS: VANCOMYCIN HCL 1,000 MG in SODIUM CHLORIDE 0.9% 250 ML IV SCH ×2 (06:00→17:25)
[2023-02-12 06:36] LABS: Basophils # (auto) 0.06 K/uL (0-0.2); Basophils % (auto) 0.4 %; Eosinophils # (auto) 0.17 K/uL (0-0.50); Eosinophils % (auto) 1.3 %; Hematocrit (blood only) 36.9 % (42.0-52.0); Hemoglobin 12.6 g/dl (14.0-18.0); Immature Granulocytes # (auto) 0.09 K/uL (0.01-0.20); Immature Granulocytes % (auto) 0.7 %; Lymphocytes # (auto) 2.28 K/uL (1.2-3.4); Lymphocytes % (auto) 17.1 %; Mean Corpuscular Hemoglobin 26.6 pg (25.0-34.0); Mean Corpuscular Hgb Conc 34.1 g/dL (32.0-36.0); Mean Corpuscular Volume 77.8 fL (80.0-100.0); Mean Platelet Volume 8.2 fL (9.4-12.4); Monocytes # (auto) 0.72 K/uL (0.11-0.59); Monocytes % (auto) 5.4 %; Neutrophils # (auto) 10.04 K/uL (1.40-6.50); Neutrophils % (auto) 75.1 %; Platelet Count 502 K/uL (130-400); RDW Coefficient of Variation 13.3 % (11.5-14.5); RDW Standard Deviation 37.8 fL (36.4-46.3); Red Blood Count 4.74 M/uL (4.70-6.10); White Blood Count 13.36 K/ul (4.8-10.8)
[2023-02-12 06:55] LABS: BUN Creatinine Ratio 9.3 (10-20); Calcium 8.8 mg/dl (8.6-10.3); Est GFR (Non-African American) 79.4 ml/min; Potassium 3.8 mmol/L (3.5-5.1)
--- NOTE | 2023-02-12 08:02 | Surgery Progress Note ---
I discussed this patient with the surgical PA and I agree with this plan. Date of Service February 12, 2023 Assessment & Plan (1) Abscess and cellulitis of gluteal region: Plan: POD#1 i&d of gluteal abscess w/ excision of pilonidal cyst WBC 13. patients vitals stable he is feeling well overall will have wound care evaluate wound today for possible vac vs. recommendations for dressing changes continue on course of IV abx while in house, may transition to po for home recommend f/u in the wound care center at [facility], f/u in the office w/ dr [email or web address] in 3-4 weeks Admission and Anticipated Discharge Date Admission Date: February 10, 2023 Subjective Patient states he feels well. No issues with buttock wound overnight. No fevers. Pain controlled. Physical Exam Physical Exam: awake/alert, lying in bed Skin: surgical dressing intact Results & Data Vital Signs (Past 12 Hours) Vital Signs Temp Pulse Pulse Pulse Resp BP BP 02/12/23 07:27 36.8 C 78 20 151/75 H 02/12/23 07:27 82 02/11/23 22:45 87 02/11/23 22:00 36.8 C 88 20 168/92 H Pulse Ox O2 Del Method 02/12/23 07:27 94 Room Air 02/12/23 07:27 02/11/23 22:45 02/11/23 22:00 92 Room Air PG Care Time/CCT Total # of Minutes Spent Total Time Spent with Patient: Total time spent is greater than 50% in coordination of care (as documented) at patient's floor/unit and/or counseling patient: Coding Level of Care Code 72133 Post Operative Follow-Up Diagnoses Abscess and cellulitis of gluteal region L02.31; L03.317
[2023-02-12] MEDS: METOCLOPRAMIDE HCL 10 MG TABLET PO SCH ×4 (08:11→20:33)
[2023-02-12] MEDS: lamoTRIgine 100 MG TAB PO SCH ×2 (08:11→20:32)
[2023-02-12] MEDS: QUEtiapine FUMARATE 25 MG TABLET PO PRN ×2 (08:11→20:34)
[2023-02-12] MEDS: buPROPion XL 300 MG TABCR PO SCH (08:12)
[2023-02-12] MEDS: CYANOCOBALAMIN (B-12) 500 MCG TABLET PO SCH (08:12)
[2023-02-12] MEDS: ATORVASTATIN 40 MG TAB PO SCH (08:12)
[2023-02-12] MEDS: GABAPENTIN 400 MG CAP PO SCH ×3 (08:12→20:32)
[2023-02-12] MEDS: LOSARTAN POTASSIUM 50 MG TAB PO SCH (08:12)
[2023-02-12] MEDS: PANTOprazole 40 MG TAB PO SCH (08:12)
[2023-02-12] MEDS: FLUoxetine HCL 20 MG CAP PO SCH (08:13)
[2023-02-12] MEDS: UMECLIDINIUM/VILANTEROL 62.5/25MCG 7 PUFFS/INHALER INH SCH (08:13)
[2023-02-12] MEDS: MAGNESIUM OXIDE 400 MG TAB PO SCH (08:13)
[2023-02-12] MEDS: NICOTINE 21 MG/24 HR TDSY TD SCH (08:13)
[2023-02-12] MEDS ORDERED: LANTUS PER UNIT CHARGE SC SCH ×2 (09:00→21:00)
[2023-02-12] MEDS: INSULIN ASPART PER UNIT CHARGE SC SCH ×4 (09:01→20:29)
[2023-02-12] MEDS: oxyCODONE HCL IR 5 MG TAB (IMMEDIATE RELEASE) PO PRN ×2 (09:01→13:00)
[2023-02-12] MEDS: hydrOXYzine HCl 25 MG TAB PO SCH (10:21)
[2023-02-12] MEDS: CIPROFLOXACIN / D5W 400 MG/200 ML BAG IV SCH ×2 (10:24→22:52)
--- NOTE | 2023-02-12 14:12 | Hospitalist Progress Note ---
Date of Service February 12, 2023 Assessment & Plan (1) Abscess and cellulitis of gluteal region: (2) Insulin dependent type 2 diabetes mellitus: (3) HTN (hypertension): (4) HLD (hyperlipidemia): (5) Depression: (6) GERD (gastroesophageal reflux disease): Plan 52-year-old male presented from PCP with rectal pain and swelling. Known pilonidal cysts that he describes drain on their own. Abdomen/pelvic CT: There is a peripherally enhancing air and fluid filled collection in the left subcutaneous gluteal tissues on image 23 measuring 5.3 x 2.5 x 6.0 cm with a sinus tract on image 268 extending to the medial gluteal cleft no extension to the perianal tissues. No acute fracture or osseous erosion. Left gluteal cellulitis with subcutaneous 6 cm abscess. There is an associated sinus tract which appears to communicate with the medial gluteal cleft. Abscess and cellulitis of gluteal region status post I&D on February 11, 2023 Patient presented with rectal pain and swelling Leukocytosis present Abdomen/pelvic CT personally reviewed; there is a peripherally enhancing air/fluid filled collection in the left subcutaneous gluteal tissues on image 23 measuring 5.3 x 2.5 x 6.0 cm with a sinus tract extending to the medial gluteal cleft no extension to the perianal tissues. General surgery on board; patient underwent I&D on February 11, 2023.. Currently on vancomycin, Cipro and Flagyl. Wound care consulted; recommend wound VAC. Prescription for wound VAC signed Blood culture 1 of 4 bottles on admission positive for coag negative staph. Repeat blood culture ordered for today. Hyponatremia: Sodium of 132 today. History of chronic hyponatremia Monitor BMP daily. Full extension of 200 cc Insulin-dependent diabetes type 2 with neuropathy: Takes metformin; hold while inpatient Takes Gabapentin; continue Scheduled lispro 50 units 3 times daily; keep on sliding scale and carb coverage while inpatient Last A1c: 08/2022 7.2; A1c during the hospitalization is 8.6% diabetic diet; Glycemic Pharmacy HTN: Takes Losartan; continue HLD: Takes atorvastatin; continue Bipolar disorder: Depression: Follows with Psych in [place]; Last appt 12/31/22. Prescribed Wellbutrin, Lamictal, Seroquel (PRN), Prozac, hydroxyzine; continue Has not had any recent visual or auditory hallucinations. GERD: Takes pantoprazole; continue Disposition: PCP: Dr. Schuler CODE STATUS: Full code VTE prophylaxis: Teds and SCDs for now Time spent evaluating patient, direct bedside care, chart review, placing orders, interpretation of diagnostic studies, discussion with consultants, patient, and family members, as well as other required patient management a ctivities is 60 minutes. Please note the above document was generated using voice recognition software. It may contain grammatical, syntax or spelling errors. Any formal questions or concerns about the content, text or information contained within the body of this dictation should be directly addressed to the provider for clarification Admission and Anticipated Discharge Date Admission Date: February 10, 2023 Subjective Patient seen and examined at bedside. Patient reports that pain at surgical site has improved compared to admission. Review of Systems Review of Systems: All systems reviewed & are unremarkable except as noted in Subjective Physical Exam Physical Exam: Constitutional: WD/WN, vitals as above, NAD, sitting up in bed, pleasant, conversing easily Respiratory: normal respiratory effort, lungs clear to auscultation, no wheeze, rales, rhonchi. Normal insp/exp effort, no accessory muscle use Cardiovascular: RRR, no murmur, no edema Vessels: no JVD or carotid bruit Chest: normal inspection of chest Abdomen: normal bowel sounds, soft, nontender, no hepatosplenomegaly Musculoskeletal: no cyanosis or clubbing, extremities motor strength 5/5. Dressing clean dry and intact at surgical site. Skin: no rashes, warm and dry normal turgor Neurologic: PERRL, EOMI, accommodation nl, no face palsy, no dysarthria CN's II- XI intact bilaterally and moves all extremities Psychiatric: A+Ox3, euthymic affect Results & Data Results & Data Vital Signs (Past 12 Hours) Vital Signs Temp Pulse Pulse Resp BP BP Pulse Ox 02/12/23 11:00 36.6 C 84 20 132/85 94 02/12/23 07:27 36.8 C 78 20 151/75 H 94 02/12/23 07:27 82 O2 Del Method 02/12/23 11:00 Room Air 02/12/23 07:27 Room Air 02/12/23 07:27 Laboratory Results Laboratory Results WBC 13.36 K/ul (4.8-10.8) H 02/12/23 06:00 RBC 4.74 M/uL (4.70-6.10) 02/12/23 06:00 Hgb 12.6 g/dl (14.0-18.0) L 02/12/23 06:00 Hct 36.9 % (42.0-52.0) L 02/12/23 06:00 MCV 77.8 fL (80.0-100.0) L 02/12/23 06:00 MCH 26.6 pg (25.0-34.0) 02/12/23 06:00 MCHC 34.1 g/dL (32.0-36.0) 02/12/23 06:00 RDW Std Deviation 37.8 fL (36.4-46.3) 02/12/23 06:00 RDW Coeff of Estefania 13.3 % (11.5-14.5) 02/12/23 06:00 Plt Count 502 K/uL (130-400) H 02/12/23 06:00 MPV 8.2 fL (9.4-12.4) L 02/12/23 06:00 Immature Gran % (Auto) 0.7 % 02/12/23 06:00 Neut % (Auto) 75.1 % 02/12/23 06:00 Lymph % (Auto) 17.1 % 02/12/23 06:00 [place] % (Auto) 5.4 % 02/12/23 06:00 Eos % (Auto) 1.3 % 02/12/23 06:00 Baso % (Auto) 0.4 % 02/12/23 06:00 Neut # (Auto) 10.04 K/uL (1.40-6.50) H 02/12/23 06:00 Lymph # (Auto) 2.28 K/uL (1.2-3.4) 02/12/23 06:00 [place] # (Auto) 0.72 K/uL (0.11-0.59) H 02/12/23 06:00 Eos # (Auto) 0.17 K/uL (0-0.50) 02/12/23 06:00 Baso # (Auto) 0.06 K/uL (0-0.2) 02/12/23 06:00 Immature Gran # (Auto) 0.09 K/uL (0.01-0.20) 02/12/23 06:00 Sodium 132 mmol/L (136-145) L 02/12/23 06:00 Potassium 3.8 mmol/L (3.5-5.1) 02/12/23 06:00 Chloride 105 mmol/L (98-107) 02/12/23 06:00 Carbon Dioxide 23 mmol/L (21-32) 02/12/23 06:00 Anion Gap 4 (3-11) 02/12/23 06:00 BUN 10 mg/dl (6-23) 02/12/23 06:00 Creatinine 1.07 mg/dl (0.6-1.4) 02/12/23 06:00 Est Cr Clr Drug Dosing 90.0 ml/min 02/12/23 06:00 Est GFR ( Amer) 92.0 ml/min 02/12/23 06:00 Est GFR (Non-Af Amer) 79.4 ml/min 02/12/23 06:00 BUN/Creatinine Ratio 9.3 (10-20) L 02/12/23 06:00 Glucose 167 mg/dl (70-99(Fasting)) H 02/12/23 06:00 POC Glucose 116 mg/dl (70-99) H 02/12/23 12:33 Estimat Average Glucose 200 mg/dl 02/11/23 05:58 Hemoglobin A1c 8.6 % (4.5-5.6) H 02/11/23 05:58 Lactate 1.0 mmol/L (0.4-2.0) 02/10/23 20:11 Calcium 8.8 mg/dl (8.6-10.3) 02/12/23 06:00 Total Bilirubin 0.2 mg/dl (0.2-1.0) 02/11/23 05:58 AST 11 U/L (13-39) L 02/11/23 05:58 ALT 8 U/L (7-52) 02/11/23 05:58 Alkaline Phosphatase 134 U/L (34-104) H 02/11/23 05:58 Total Protein 7.1 gm/dl (6.0-8.3) 02/11/23 05:58 Albumin 2.9 gm/dl (3.4-5.0) L 02/11/23 05:58 Globulin 4.2 gm/dl (2.5-4.0) H 02/11/23 05:58 Albumin/Globulin Ratio 0.7 (0.9-2) L 02/11/23 05:58 Staphylococcus sp PCR DETECTED (NotDetected) A 02/10/23 18:06 mecA/C-Methicil Resis Gene DETECTED (NotDetected) A 02/10/23 18:06 Staph epidermidis (PCR) DETECTED (NotDetected) A 02/10/23 18:06 Bld Cult ID Panel PCR See PCR Comment (NotDetected) 02/10/23 18:06 Impressions Abdomen/Pelvis CT 02/10/23 16:[address] WITH IV CONTRAST CT DOSE: 1614.75 mGy.cm HISTORY: Acute lower pelvic/rectal pain eval for rectal/pilonidal abscess TECHNIQUE: Multiaxial CT images of the abdomen and pelvis were performed following the IV administration of 88 cc of Optiray, A dose lowering technique was utilized adhering to the principles of ALARA. COMPARISON STUDY: Chest radiograph 12/01/2022 FINDINGS: Mild patchy subsegmental bibasilar groundglass densities. No pneumatosis or pneumoperitoneum. Gynecomastia. The spleen is mildly enlarged, 14.5 cm. Mildly atrophic pancreas. Unremarkable adrenal glands. Cholelithiasis. Mildly enlarged liver. Patent portal vein. Unremarkable kidneys. 2 cm cyst of t he superior pole left kidney. No hydronephrosis. Unremarkable urinary bladder. Atherosclerosis of the aorta without aneurysm. Subcentimeter retroperitoneal lymph nodes are likely reactive. Nonspecific distal esophageal wall thickening. No bowel obstruction or bowel wall thickening. Colonic diverticulosis. Normal appendix. There is moderate focal cellulitis changes within the subcutaneous left gluteal tissues. There is a peripherally enhancing air and fluid filled collection in the left subcutaneous gluteal tissues on image 23 measuring 5.3 x 2.5 x 6.0 cm with a sinus tract on image 268 extending to the medial gluteal cleft no extension to the perianal tissues. No acute fracture or osseous erosion. IMPRESSION: 1. Left gluteal cellulitis with subcutaneous 6 cm abscess. There is an ass ociated sinus tract which appears to communicate with the medial gluteal cleft. 2. No perianal involvement or supralevator extension. 3. No bowel obstruction or bowel wall thickening. 4. Cholelithiasis. 5. Mild subsegmental bibasilar groundglass densities are suspicious for a nonspecific infectious or inflammatory pneumonitis such as viral pneumonia. 6. Additional findings as above. ACT 112: Negative or not required by law. The above report was generated using voice recognition software. It may contain grammatical, syntax or spelling errors. Electronically signed by: Prince Underwood M.D. 02/10/2023 5:00 PM
--- NOTE | 2023-02-12 14:17 | Pharmacy Report ---
Pharmacy Glycemic Short Note 2 - Date of Service February 12, 2023 - Glycemic Short BSG Results (Last 24 hours): 02/11/23 02/11/23 02/11/23 16:44 20:13 20:15 Glucose POC Glucose 249 H 329 H* 266 H 02/12/23 02/12/23 02/12/23 06:00 08:00 12:33 Glucose 167 H POC Glucose 171 H 116 H OUTPATIENT ANTIDIABETIC REGIMEN: * Lantus 45 units SQ qPM * Admelog 14-50 units SQ TID, plus correction factor 50mg/dL/unit for BSG > 150mg/dL * Metformin 1 gm PO qAM HbA1c: 8.6% (02/11/23) ASSESSMENT: 02/12/23: * BSGs yesterday were 83-82-412-249-329-266 mg/dl. Patient received total 44 units of insulin yesterday; 22 units basal and 22 units bolus. * Fasting BSG today was 167 mg/dl. Added 10 units of basal insulin this AM x1 then slightly increased basal dose for tonight to 25 units. * Since post-prandial BSG yesterday were elevated, Novolog parameters tightened. 02/11/23: * POD #0 s/p I&D of gluteal abscess * Patient received 30 units of basal last evening w/ fasting BSG of 72 mg/dL * Will decrease basal insulin this evening * Diet ordered postoperatively Background: * Mr Anderson is a 52yo diabetic M admitted with gluteal abscess/cellulitis. * Pt is NPO for possible OR 02/11. * Pt is receiving IV vancomycin, cipro, metronidazole. * SQ insulin regimen ordered somewhat conservatively on admission d/t NPO status. * Pharmacy will continue to follow and adjust regimen as indicated. PLAN FOR INPATIENT GLYCEMIC CONTROL: * Hold outpatient oral diabetes medications * Basal insulin * Lantus 10 units x1 this AM * Lantus 25 units SC HS ongoing- re-assess tomorrow. * Bolus insulin * NovoLog per scale ACHS or Q6hrs while NPO * Goal Range: Low 110 mg/dL - High 140 mg/dL * Correction Factor: 20 mg/dL/unit * Nutritional / Prandial insulin per carb ratio of 1 unit per 6 grams CHO consumed
[2023-02-12] MEDS: LANTUS PER UNIT CHARGE SC SCH (20:29)
[2023-02-12] MEDS: rOPINIRole HCL 1 MG TABLET PO SCH (20:34)
[2023-02-13] MEDS: metroNIDAZOLE 500 MG/100 ML BAG IV SCH ×3 (04:58→21:12)
[2023-02-13] MEDS ORDERED: VANCOMYCIN LEVEL ONE ×2 (05:30)
[2023-02-13] MEDS: VANCOMYCIN HCL 1,000 MG in SODIUM CHLORIDE 0.9% 250 ML IV SCH (06:11)
[2023-02-13 06:48] LABS: Basophils # (auto) 0.13 K/uL (0-0.2); Basophils % (auto) 1.6 %; Eosinophils # (auto) 0.49 K/uL (0-0.50); Eosinophils % (auto) 6.1 %; Hematocrit (blood only) 33.5 % (42.0-52.0); Hemoglobin 11.2 g/dl (14.0-18.0); Immature Granulocytes # (auto) 0.03 K/uL (0.01-0.20); Immature Granulocytes % (auto) 0.4 %; Lymphocytes # (auto) 2.27 K/uL (1.2-3.4); Lymphocytes % (auto) 28.1 %; Mean Corpuscular Hemoglobin 26.4 pg (25.0-34.0); Mean Corpuscular Hgb Conc 33.4 g/dL (32.0-36.0); Mean Corpuscular Volume 78.8 fL (80.0-100.0); Mean Platelet Volume 8.6 fL (9.4-12.4); Monocytes # (auto) 0.54 K/uL (0.11-0.59); Monocytes % (auto) 6.7 %; Neutrophils # (auto) 4.61 K/uL (1.40-6.50); Neutrophils % (auto) 57.1 %; Platelet Count 436 K/uL (130-400); RDW Coefficient of Variation 13.6 % (11.5-14.5); RDW Standard Deviation 38.6 fL (36.4-46.3); Red Blood Count 4.25 M/uL (4.70-6.10); White Blood Count 8.07 K/ul (4.8-10.8)
[2023-02-13 07:21] LABS: BUN Creatinine Ratio 11.5 (10-20); Calcium 8.6 mg/dl (8.6-10.3); Creatinine Clr Calc Pharmacy 93.9 ml/min; Est GFR (African American) 95.2 ml/min; Est GFR (Non-African American) 82.2 ml/min; Potassium 3.9 mmol/L (3.5-5.1)
[2023-02-13] MEDS: METOCLOPRAMIDE HCL 10 MG TABLET PO SCH ×4 (08:35→21:10)
[2023-02-13] MEDS: ATORVASTATIN 40 MG TAB PO SCH (08:37)
[2023-02-13] MEDS: buPROPion XL 300 MG TABCR PO SCH (08:38)
[2023-02-13] MEDS: CYANOCOBALAMIN (B-12) 500 MCG TABLET PO SCH (08:38)
[2023-02-13] MEDS: FLUoxetine HCL 20 MG CAP PO SCH (08:40)
[2023-02-13] MEDS: GABAPENTIN 400 MG CAP PO SCH ×3 (08:41→21:11)
[2023-02-13] MEDS: hydrOXYzine HCl 25 MG TAB PO SCH (08:42)
[2023-02-13] MEDS: lamoTRIgine 100 MG TAB PO SCH ×2 (08:43→21:11)
[2023-02-13] MEDS: LOSARTAN POTASSIUM 50 MG TAB PO SCH (08:43)
[2023-02-13] MEDS: MAGNESIUM OXIDE 400 MG TAB PO SCH (08:45)
[2023-02-13] MEDS: UMECLIDINIUM/VILANTEROL 62.5/25MCG 7 PUFFS/INHALER INH SCH (08:46)
[2023-02-13] MEDS: PANTOprazole 40 MG TAB PO SCH (08:46)
[2023-02-13] MEDS: NICOTINE 21 MG/24 HR TDSY TD SCH (08:49)
--- NOTE | 2023-02-13 09:33 | Pharmacy Report ---
Pharmacy Glycemic Short Note 2 - Date of Service February 13, 2023 - Glycemic Short BSG Results (Last 24 hours): 02/12/23 02/12/23 02/12/23 12:33 17:19 20:21 Glucose POC Glucose 116 H 74 202 H 02/13/23 02/13/23 05:32 07:47 Glucose 150 H POC Glucose 109 H OUTPATIENT ANTIDIABETIC REGIMEN: * Lantus 45 units SQ qPM * Admelog 14-50 units SQ TID, plus correction factor 50mg/dL/unit for BSG > 150mg/dL * Metformin 1 gm PO qAM HbA1c: 8.6% (02/11/23) ASSESSMENT: 02/13/23: * Near-hypoglycemic event noted at dinner yesterday. Potentially due to stacking of breakfast and lunch Novolog (although there was ~3.5 hours between AM insulin and pre-lunch BSG check), but more likely due to tighter Novolog parameters. Will loosen Novolog * AM fsating BSG with notable trend down as compared to yesterday AM. Will omit AM Lantus and continue with scheduled PM administration (schedule consistent with home schedule) 02/12/23: * BSGs yesterday were 92-83-635-249-329-266 mg/dl. Patient received total 44 units of insulin yesterday; 22 units basal and 22 units bolus. * Fasting BSG today was 167 mg/dl. Added 10 units of basal insulin this AM x1 then slightly increased basal dose for tonight to 25 units. * Since post-prandial BSG yesterday were elevated, Novolog parameters tightened. 02/11/23: * POD #0 s/p I&D of gluteal abscess * Patient received 30 units of basal last evening w/ fasting BSG of 72 mg/dL * Will decrease basal insulin this evening * Diet ordered postoperatively Background: * Mr Anderson is a 52yo diabetic M admitted with gluteal abscess/cellulitis. * Pt is NPO for possible OR 02/11. * Pt is receiving IV vancomycin, cipro, metronidazole. * SQ insulin regimen ordered somewhat conservatively on admission d/t NPO status. * Pharmacy will continue to follow and adjust regimen as indicated. PLAN FOR INPATIENT GLYCEMIC CONTROL: * Hold outpatient oral diabetes medications * Basal insulin * Lantus 25 units SC HS ongoing * Bolus insulin * NovoLog per scale ACHS or Q6hrs while NPO * Goal Range: Low 110 mg/dL - High 140 mg/dL * Correction Factor: 20 mg/dL/unit * Nutritional / Prandial insulin per carb ratio of 1 unit per 7 grams CHO consumed
[2023-02-13] MEDS: INSULIN ASPART PER UNIT CHARGE SC SCH ×5 (09:50→21:14)
[2023-02-13] MEDS: ENOXAPARIN INJ 40 MG/0.4 ML SYR SQ SCH (10:19)
[2023-02-13] MEDS: oxyCODONE HCL IR 5 MG TAB (IMMEDIATE RELEASE) PO PRN ×2 (10:21→21:31)
[2023-02-13] MEDS: CIPROFLOXACIN / D5W 400 MG/200 ML BAG IV SCH (10:31)
--- NOTE | 2023-02-13 10:50 | Pharmacy Report ---
Pharmacy PK ABX Note - Date of Service February 13, 2023 - Assessment and Plan Assessment * Mr Anderson is a 52 year old M receiving vanc/cipro/metronidazole for treatment of gluteal/pilonidal abscess/cellulitis. S/p I&D on 02/11, although no cultures are pending * Cultures * 02/10 blood cultures - 1 of 2 with coag negative Staph (likely contaminant) * 02/12 blood cultures - no growth at this time * PMH is significant for DM. Vancomycin * Goal AUC 400-600 mg/L.hr * Trough this AM associated with therapeutic AUC of 409 mg/L.hr although this is in the lower end of the goal range * SCr mostly stable today, although very slight trend down as compared to the last two days. Unknown baseline. * Given slight improvement in SCr and especially since AUC is in the very low end of the goal range, will slightly increase vancomycin Plan * Increase vancomycin to 1250 mg IV q12h * Random level after the 4th dose of the new regimen, ordered for 02/15 @ 1200 Pharmacy will continue to follow and will adjust dose/frequency as necessary. Thank you. Pharmacy has transitioned to AUC monitoring for vancomycin. AUC/KATHLEEN is the preferred PK/PD target and is associated with decreased risk of nephrotoxicity compared to traditional trough targets.
--- NOTE | 2023-02-13 14:20 | Hospitalist Progress Note ---
Date of Service February 13, 2023 Assessment & Plan (1) Abscess and cellulitis of gluteal region: (2) Insulin dependent type 2 diabetes mellitus: (3) HTN (hypertension): (4) HLD (hyperlipidemia): (5) Depression: (6) GERD (gastroesophageal reflux disease): Plan 52-year-old male presented from PCP with rectal pain and swelling. Known pilonidal cysts that he describes drain on their own. Abdomen/pelvic CT: There is a peripherally enhancing air and fluid filled collection in the left subcutaneous gluteal tissues on image 23 measuring 5.3 x 2.5 x 6.0 cm with a sinus tract on image 268 extending to the medial gluteal cleft no extension to the perianal tissues. No acute fracture or osseous erosion. Left gluteal cellulitis with subcutaneous 6 cm abscess. There is an associated sinus tract which appears to communicate with the medial gluteal cleft. Abscess and cellulitis of gluteal region status post I&D on February 11, 2023 Patient presented with rectal pain and swelling Leukocytosis present on admission; resolved. Abdomen/pelvic CT personally reviewed; there is a peripherally enhancing air/fluid filled collection in the left subcutaneous gluteal tissues on image 23 measuring 5.3 x 2.5 x 6.0 cm with a sinus tract extending to the medial gluteal cleft no extension to the perianal tissues. General surgery on board; patient underwent I&D on February 11, 2023.. Currently on vancomycin, Cipro and Flagyl. Wound care consulted; recommend wound VAC. Prescription for wound VAC signed Blood culture 1 of 4 bottles on admission positive for coag negative staph. Repeat blood culture no growth till date. Hyponatremia: Sodium improved to 137. History of chronic hyponatremia Monitor BMP daily. Full extension of 200 cc Insulin-dependent diabetes type 2 with neuropathy: Takes metformin; hold while inpatient Takes Gabapentin; continue Scheduled lispro 50 units 3 times daily; keep on sliding scale and carb coverage while inpatient Last A1c: 08/2022 7.2; A1c during the hospitalization is 8.6% diabetic diet; Glycemic Pharmacy HTN: Takes Losartan; continue HLD: Takes atorvastatin; continue Bipolar disorder: Depression: Follows with Psych in [place]; Last appt 12/31/22. Prescribed Wellbutrin, Lamictal, Seroquel (PRN), Prozac, hydroxyzine; continue Has not had any recent visual or auditory hallucinations. GERD: Takes pantoprazole; continue Disposition: PCP: Dr. Schuler CODE STATUS: Full code VTE prophylaxis: Teds and SCDs for now Dispohome with home health. Patient to have wound VAC placed today. Possible discharge in a.m. Time spent evaluating patient, direct bedside care, chart review, placing orders, interpretation of diagnostic studies, discussion with consultants, patient, and family members, as well as other required patient management activities is 60 minutes. Please note the above document was generated using voice recognition software. It may contain grammatical, syntax or spelling errors. Any formal questions or concerns about the content, text or information contained within the body of this dictation should be directly addressed to the provider for clarification Admission and Anticipated Discharge Date Admission Date: February 10, 2023 Subjective Patient seen and examined at bedside. He is comfortably lying on the bed; not in distress. Denies any pain or discomfort. Review of Systems Review of Systems: All systems reviewed & are unremarkable except as noted in Subjective Physical Exam Physical Exam: Constitutional: WD/WN, vitals as above, NAD, sitting up in bed, pleasant, conversing easily Respiratory: normal respiratory effort, lungs clear to auscultation, no wheeze, rales, rhonchi. Normal insp/exp effort, no accessory muscle use Cardiovascular: RRR, no murmur, no edema Vessels: no JVD or carotid bruit Chest: normal inspection of chest Abdomen: normal bowel sounds, soft, nontender, no hepatosplenomegaly Musculoskeletal: no cyanosis or clubbing, extremities motor strength 5/5. Dressing clean dry and intact at surgical site. Skin: no rashes, warm and dry normal turgor Neurologic: PERRL, EOMI, accommodation nl, no face palsy, no dysarthria CN's II- XI intact bilaterally and moves all extremities Psychiatric: A+Ox3, euthymic affect Results & Data Results & Data Vital Signs (Past 12 Hours) Vital Signs Temp Pulse Pulse Pulse Resp BP Pulse Ox 02/13/23 12:22 36.6 C 86 14 146/72 H 96 02/13/23 08:01 36.7 C 91 H 14 128/62 14 L 02/13/23 07:16 84 02/13/23 04:19 36.9 C 93 H 18 148/87 H 90 O2 Del Method 02/13/23 12:22 Room Air 02/13/23 08:01 Room Air 02/13/23 07:16 02/13/23 04:19 Room Air Laboratory Results Laboratory Results WBC 8.07 K/ul (4.8-10.8) 02/13/23 05:32 RBC 4.25 M/uL (4.70-6.10) L 02/13/23 05:32 Hgb 11.2 g/dl (14.0-18.0) L 02/13/23 05:32 Hct 33.5 % (42.0-52.0) L 02/13/23 05:32 MCV 78.8 fL (80.0-100.0) L 02/13/23 05:32 MCH 26.4 pg (25.0-34.0) 02/13/23 05:32 MCHC 33.4 g/dL (32.0-36.0) 02/13/23 05:32 RDW Std Deviation 38.6 fL (36.4-46.3) 02/13/23 05:32 RDW Coeff of Estefania 13.6 % (11.5-14.5) 02/13/23 05:32 Plt Count 436 K/uL (130-400) H 02/13/23 05:32 MPV 8.6 fL (9.4-12.4) L 02/13/23 05:32 Immature Gran % (Auto) 0.4 % 02/13/23 05:32 Neut % (Auto) 57.1 % 02/13/23 05:32 Lymph % (Auto) 28.1 % 02/13/23 05:32 [place] % (Auto) 6.7 % 02/13/23 05:32 Eos % (Auto) 6.1 % 02/13/23 05:32 Baso % (Auto) 1.6 % 02/13/23 05:32 Neut # (Auto) 4.61 K/uL (1.40-6.50) 02/13/23 05:32 Lymph # (Auto) 2.27 K/uL (1.2-3.4) 02/13/23 05:32 [place] # (Auto) 0.54 K/uL (0.11-0.59) 02/13/23 05:32 Eos # (Auto) 0.49 K/uL (0-0.50) 02/13/23 05:32 Baso # (Auto) 0.13 K/uL (0-0.2) 02/13/23 05:32 Immature Gran # (Auto) 0.03 K/uL (0.01-0.20) 02/13/23 05:32 Sodium 137 mmol/L (136-145) 02/13/23 05:32 Potassium 3.9 mmol/L (3.5-5.1) 02/13/23 05:32 Chloride 110 mmol/L (98-107) H 02/13/23 05:32 Carbon Dioxide 24 mmol/L (21-32) 02/13/23 05:32 Anion Gap 3 (3-11) 02/13/23 05:32 BUN 12 mg/dl (6-23) 02/13/23 05:32 Creatinine 1.04 mg/dl (0.6-1.4) 02/13/23 05:32 Est Cr Clr Drug Dosing 93.9 ml/min 02/13/23 05:32 Est GFR ( Amer) 95.2 ml/min 02/13/23 05:32 Est GFR (Non-Af Amer) 82.2 ml/min 02/13/23 05:32 BUN/Creatinine Ratio 11.5 (10-20) 02/13/23 05:32 Glucose 150 mg/dl (70-99(Fasting)) H 02/13/23 05:32 POC Glucose 128 mg/dl (70-99) H 02/13/23 11:20 Estimat Average Glucose 200 mg/dl 02/11/23 05:58 Hemoglobin A1c 8.6 % (4.5-5.6) H 02/11/23 05:58 Lactate 1.0 mmol/L (0.4-2.0) 02/10/23 20:11 Calcium 8.6 mg/dl (8.6-10.3) 02/13/23 05:32 Total Bilirubin 0.2 mg/dl (0.2-1.0) 02/11/23 05:58 AST 11 U/L (13-39) L 02/11/23 05:58 ALT 8 U/L (7-52) 02/11/23 05:58 Alkaline Phosphatase 134 U/L (34-104) H 02/11/23 05:58 Total Protein 7.1 gm/dl (6.0-8.3) 02/11/23 05:58 Albumin 2.9 gm/dl (3.4-5.0) L 02/11/23 05:58 Globulin 4.2 gm/dl (2.5-4.0) H 02/11/23 05:58 Albumin/Globulin Ratio 0.7 (0.9-2) L 02/11/23 05:58 Random Vancomycin 11.8 mcg/ml (10-20) 02/13/23 05:32 Staphylococcus sp PCR DETECTED (NotDetected) A 02/10/23 18:06 mecA/C-Methicil Resis Gene DETECTED (NotDetected) A 02/10/23 18:06 Staph epidermidis (PCR) DETECTED (NotDetected) A 02/10/23 18:06 Bld Cult ID Panel PCR See PCR Comment (NotDetected) 02/10/23 18:06 Impressions Abdomen/Pelvis CT 02/10/23 16:[address] WITH IV CONTRAST CT DOSE: 1614.75 mGy.cm HISTORY: Acute lower pelvic/rectal pain eval for rectal/pilonidal abscess TECHNIQUE: Multiaxial CT images of the abdomen and pelvis were performed following the IV administration of 88 cc of Optiray, A dose lowering technique was utilized adhering to the principles of ALARA. COMPARISON STUDY: Chest radiograph 12/01/2022 FINDINGS: Mild patchy subsegmental bibasilar groundglass densities. No pneumatosis or pneumoperitoneum. Gynecomastia. The spleen is mildly enlarged, 14.5 cm. Mildly atrophic pancreas. Unremarkable adrenal glands. Cholelithiasis. Mildly enlarged liver. Patent portal vein. Unremarkable kidneys. 2 cm cyst of the superior pole left kidney. No hydronephrosis. Unremarkable urinary bladder. Atherosclerosis of the aorta without aneurysm. Subcentimeter retroperitoneal lymph nodes are likely reactive. Nonspecific distal esophageal wall thickening. No bowel obstruction or bowel wall thickening. Colonic diverticulosis. Normal appendix. There is moderate focal cellulitis changes within the subcutaneous left gluteal tissues. There is a peripherally enhancing air and fluid filled collection in the left subcutaneous gluteal tissues on image 23 measuring 5.3 x 2.5 x 6.0 cm with a sinus tract on image 268 extending to the medial gluteal cleft no extension to the perianal tissues. No acute fracture or osseous erosion. IMPRESSION: 1. Left gluteal cellulitis with subcutaneous 6 cm abscess. There is an associated sinus tract which appears to communicate with the medial gluteal cleft. 2. No perianal involvement or supralevator extension. 3. No bowel obstruction or bowel wall thickening. 4. Cholelithiasis. 5. Mild subsegmental bibasilar groundglass densities are suspicious for a nonspecific infectious or inflammatory pneumonitis such as viral pneumonia. 6. Additional findings as above. ACT 112: Negative or not required by law. The above report was generated using voice recognition software. It may contain grammatical, syntax or spelling errors. Electronically signed by: Prince Underwood M.D. 02/10/2023 5:00 PM
[2023-02-13] MEDS: VANCOMYCIN HCL 1,250 MG in SODIUM CHLORIDE 0.9% 250 ML IV SCH (15:57)
[2023-02-13] MEDS: rOPINIRole HCL 1 MG TABLET PO SCH (21:10)
[2023-02-13] MEDS: LANTUS PER UNIT CHARGE SC SCH (21:12)
[2023-02-14] MEDS: CIPROFLOXACIN / D5W 400 MG/200 ML BAG IV SCH ×2 (00:35→12:26)
[2023-02-14] MEDS: VANCOMYCIN HCL 1,250 MG in SODIUM CHLORIDE 0.9% 250 ML IV SCH (03:56)
[2023-02-14] MEDS: metroNIDAZOLE 500 MG/100 ML BAG IV SCH (05:36)
[2023-02-14] MEDS: oxyCODONE HCL IR 5 MG TAB (IMMEDIATE RELEASE) PO PRN (07:34)
[2023-02-14 07:54] LABS: Basophils # (auto) 0.11 K/uL (0-0.2); Basophils % (auto) 0.9 %; Eosinophils # (auto) 0.48 K/uL (0-0.50); Eosinophils % (auto) 4.1 %; Hematocrit (blood only) 38.8 % (42.0-52.0); Hemoglobin 12.8 g/dl (14.0-18.0); Immature Granulocytes # (auto) 0.07 K/uL (0.01-0.20); Immature Granulocytes % (auto) 0.6 %; Lymphocytes % (auto) 23.3 %; Mean Corpuscular Hemoglobin 26.4 pg (25.0-34.0); Mean Corpuscular Volume 80.2 fL (80.0-100.0); Monocytes # (auto) 0.78 K/uL (0.11-0.59); Monocytes % (auto) 6.7 %; Neutrophils # (auto) 7.46 K/uL (1.40-6.50); Neutrophils % (auto) 64.4 %; Platelet Count 417 K/uL (130-400); RDW Coefficient of Variation 13.7 % (11.5-14.5); RDW Standard Deviation 39.5 fL (36.4-46.3); Red Blood Count 4.84 M/uL (4.70-6.10)
[2023-02-14 08:06] LABS: BUN Creatinine Ratio 10.1 (10-20); Calcium 9.1 mg/dl (8.6-10.3); Creatinine Clr Calc Pharmacy 90.1 ml/min; Est GFR (Non-African American) 77.6 ml/min; Potassium 4.3 mmol/L (3.5-5.1)
[2023-02-14] MEDS: ENOXAPARIN INJ 40 MG/0.4 ML SYR SQ SCH (09:14)
[2023-02-14] MEDS: FLUoxetine HCL 20 MG CAP PO SCH (09:15)
[2023-02-14] MEDS: NICOTINE 21 MG/24 HR TDSY TD SCH (09:15)
[2023-02-14] MEDS: PANTOprazole 40 MG TAB PO SCH (09:16)
[2023-02-14] MEDS: GABAPENTIN 400 MG CAP PO SCH (09:16)
[2023-02-14] MEDS: lamoTRIgine 100 MG TAB PO SCH (09:17)
[2023-02-14] MEDS: CYANOCOBALAMIN (B-12) 500 MCG TABLET PO SCH (09:17)
[2023-02-14] MEDS: METOCLOPRAMIDE HCL 10 MG TABLET PO SCH (09:17)
[2023-02-14] MEDS: MAGNESIUM OXIDE 400 MG TAB PO SCH (09:18)
[2023-02-14] MEDS: LOSARTAN POTASSIUM 50 MG TAB PO SCH (09:18)
[2023-02-14] MEDS: buPROPion XL 300 MG TABCR PO SCH (09:18)
[2023-02-14] MEDS: UMECLIDINIUM/VILANTEROL 62.5/25MCG 7 PUFFS/INHALER INH SCH (09:19)
[2023-02-14] MEDS: ATORVASTATIN 40 MG TAB PO SCH (09:19)
[2023-02-14] MEDS: hydrOXYzine HCl 25 MG TAB PO SCH (09:21)
[2023-02-14] MEDS: INSULIN ASPART PER UNIT CHARGE SC SCH (09:21)
--- NOTE | 2023-02-14 12:12 | Discharge Summary ---
Date of Service February 14, 2023 Admission HPI Per Admitting Provider 52-year-old male presented to his PCP office with rectal pain and swelling and was referred to the emergency room for further evaluation. Patient with known pilonidal cysts that he describes drain on their own. Reports having increased pain with walking over the past week. Denies fevers or chills. No changes with bowel movements; no hematochezia. Abdomen/pelvic CT: There is a peripherally enhancing air and fluid filled collection in the left subcutaneous gluteal tissues on image 23 measuring 5.3 x 2.5 x 6.0 cm with a sinus tract on image 268 extending to the medial gluteal cleft no extension to the perianal tissues. No acute fracture or osseous erosion. Left gluteal cellulitis with subcutaneous 6 cm abscess. There is an associated sinus tract which appears to communicate with the medial gluteal cleft. Mild leukocytosis 11.82, slight hyponatremia 128 with corrected sodium 130. Do not suspect renal loss, GI loss versus third spacing rather euvolemic hypotonic hyponatremia related to antidepressant and daily NSAID use. Per review of records; baseline Na+ 130 from August 2022. Does take short and long acting insulin but was unable to tell me any ranges of his glucose levels. A1C 7.2 from Aug 2022. Additional past medical history includes insulin-dependent diabetes mellitus type 2, HTN, HLD, depression and anxiety, bipolar disorder, tobacco use, and GERD. Smokes 1 ppd, no alcohol or illicit drug use. Stated he 'thinks' he had a stroke in his past; not on any anticoagulation; Limited but was able to find outpatient records from [facility] with head neck CTA that was nega tive. Follows with Psych in [place]; Last appt 12/31/22. patient is on disability due to medical reasons and adult children reside in [place]. For his bipolar disorder and depression he is prescribed Wellbutrin, Lamictal, Seroquel, Prozac, hydroxyzine. He reports that potential stressors in his life include his brother that he lives with. He is able to find distractions and listen to music and has not had any recent visual or auditory hallucinations. Rocephin started in the ED; documented PCN allergy that pt states had anaphylaxis as a kid. Will start Vancomycin and adjust based on blood culture results. Appreciate general surgery's input with formal consultation. Denies PAGE, dizziness, SOB, CP, palpitations, N/V/D, abdominal pain/tenderness, dysuria, neuropathy , weakness, recent falls or trauma. On examination, disheveled individual with large stage 1 pressure ulcer extending on both sides of his gluteal folds with scattered stage II breakdown without purulent drainage. He will be admitted for further evaluation and management. Please see A/P for further details. Admission Exam Per Admitting Provider Neuro: AAOx4, PERRLA, no aphagia, memory changes, CNII-XII grossly intact HEENT: head normocephalic, moist mucus membranes CV: S1/S2, (-) M/G/R, (-) edema, cap refill < 3 seconds Resp: Lungs CTA in all gilbert. On RA GI: Abdomen S/NT/ND, Ax4 bowel sounds, (-) CVA tenderness Musculoskeletal: 5/5 B/L UE strength, 5/5 B/L LE strength. No gait disturbance Skin: stage 1 pressure ulcer extending on both sides of his gluteal folds with scattered stage II breakdown without purulent drainage. Psych: euthymic mood Principal Diagnosis Abscess and cellulitis of gluteal region status post I&D onAugust 2022 Discharge Exam Constitutional: WD/WN, vitals as above, NAD, sitting up in bed, pleasant, conversing easily Respiratory: Bilateral vesicular breath Cardiovascular: RRR, no murmur, no edema Vessels: no JVD or carotid bruit Chest: normal inspection of chest Abdomen: normal bowel sounds, soft, nontender, no hepatosplenomegaly Musculoskeletal: no cyanosis or clubbing, extremities motor strength 5/5. Dressing clean dry and intact at surgical site. Skin: no rashes, warm and dry normal turgor Neurologic: PERRL, EOMI, accommodation nl, no face palsy, no dysarthria CN's II- XI intact bilaterally and moves all extremities Psychiatric: A+Ox3, euthymic affect Discharge Data Allergies Allergy/AdvReac Type Severity Reaction Status Date / Time Penicillins Allergy Severe THROAT Verified 02/10/23 17:19 CLOSING bee venom protein (honey bee) Allergy SWELLING Verified 02/10/23 17:19 liraglutide [From Victoza] AdvReac Difficulty Verified 02/10/23 17:19 Breathing Sulfa (Sulfonamide AdvReac Gastrointestinal Verified 02/10/23 17:19 Antibiotics) Upset Consultations 02/10/23 17:55 Consult General Surgery Routine 02/10/23 18:00 ED Decision to Admit Stat Procedures Performed Operation Date: 02/11/23 08:20 Actual Procedures p Incision and Drainage Gluteal Absces with excision of Pilonidal Cyst(Not Applicable) - Darrion Gorman, DO, FACS Ordered Studies 02/10/23 16:28 CT abd pelvis IV con only Stat Hospital Course (1) Abscess and cellulitis of gluteal region: (2) Insulin dependent type 2 diabetes mellitus: (3) HTN (hypertension): (4) HLD (hyperlipidemia): (5) Depression: (6) GERD (gastroesophageal reflux disease): Plan Abscess and cellulitis of gluteal region status post I&D on February 11, 2023 Patient presented with rectal pain and swelling Leukocytosis present on admission; resolved. Abdomen/pelvic CT personally reviewed; there is a peripherally enhancing air/fluid filled collection in the left subcutaneous gluteal tissues on image 23 measuring 5.3 x 2.5 x 6.0 cm with a sinus tract extending to the medial gluteal cleft no extension to the perianal tissues. During the hospitalization, patient underwent underwent I&D by general surgery on February 11, 2023.. He was treated with IV antibiotics with Flagyl, Cipro and vancomycin. Wound care was consulted; recommended wound VAC. Home health was set up. Patient was discharged on 5 more days of oral antibiotics. Patient was dis charged on wound VAC. Patient to follow-up with PCP, general surgery and wound care center. Hyponatremia: Presented with sodium of 128; improved with fluid restriction to 136 at discharge. Please note the above document was generated using voice recognition software. It may contain grammatical, syntax or spelling errors. Any formal questions or concerns about the content, text or information contained within the body of this dictation should be directly addressed to the provider for clarification Total Time Total Time Spent Total Time Spent (In Minutes): 45 Total Time Includes: Examination of the Patient, Discharge Planning, Medication Reconciliation, Communication With Other Providers and Other Discharge Plan Discharge Items Patient Disposition: Home - Self-Care Reason For Visit: CELLULITIS Discharge Diagnosis: Abscess and cellulitis of gluteal region status post I&D onFebruary 11, 2023 Activity: Resume your previous activity Non-emergency contact: Primary Care Provider Call non-emergency contact if: you have any medication questions and your symptoms worsen Follow-up/Referrals: [facility] [Other] - 03/17/23 1:00 pm ([address] [place] [address] [address], [place] [address] ) Darrion Gorman DO, FACS [Physician] - (Please call to schedule follow up in clinic within 3-4 weeks) Taran Schuler DO [Primary Care Provider] - (Date & Time 02/20/2023 11:00 AM Provider [facility] ) Diet: Regular Addtl Attending Provider Instructions: You were admitted to the hospital with abscess in the gluteal region. You underwent surgery by Dr. Gorman on February 11, 2023. Please take the following antibiotics for 5 days: 1) ciprofloxacin 1 tablet twice daily 2) metronidazole 1 tablet 3 times a day 3) doxycycline 1 tablet 2 times a day Please go to following appointments: 1) Primary care doctor on February 20 at 11 AM. 2) Dr. Gomran; please call to make an appointment in 3 to 4 weeks. 3) wound care center ([address] [facility], [address], [facility] [address], phone number-#[phone]) Pending Studies at Discharge: No Stand-Alone Forms: My [facility], Smoking Cessation Medications and DC Order Prescriptions: New oxycodone 5 mg Tablet 5 mg PO Q6H PRN (Reason: pain) Qty: 10 0RF ciprofloxacin HCl 500 mg tablet 500 mg PO BID 5 Days Qty: 10 0RF metronidazole 500 mg tablet 500 mg PO Q8H 5 Days Qty: 15 0RF doxycycline hyclate 100 mg capsule 100 mg PO BID 5 Days Qty: 10 0RF Continued losartan 50 mg tablet 50 mg PO QAM quetiapine 25 mg tablet 25 mg PO QID PRN (Reason: Anxiety) Rx Instructions: Take 1 tab PRN in am, noon & evening . fluoxetine 40 mg capsule 40 mg PO DAILY cyclobenzaprine 10 mg Tablet 10 mg PO HS PRN (Reason: .restless leg) atorvastatin 40 mg Tablet 40 mg PO DAILY metformin 500 mg tablet 1,000 mg PO QAM lamotrigine 200 mg tablet 200 mg PO AMHS ropinirole 1 mg tablet See Rx Instructions .ROUTE .COMPLEX Rx Instructions: Take 1mg tablet by mouth with 2mg tablet to equal 3mg at bedtime ibuprofen 800 mg tablet 800 mg PO TID PRN (Reason: Pain) Rx Instructions: AM, NOON & HS gabapentin 400 mg capsule 400 mg PO TID cyanocobalamin (vitamin B-12) 1,000 mcg tablet 1,000 mcg PO DAILY acetaminophen 650 mg tablet extended release 650 mg PO BID PRN (Reason: Pain) ropinirole 2 mg tablet See Rx Instructions .ROUTE .COMPLEX Rx Instructions: Take 2mg tablet by mouth with 1mg tablet to equal 3mg at bedtime pantoprazole 40 mg tablet,delayed release (DR/EC) 40 mg PO QAM aspirin 81 mg Tablet,Chewable 81 mg PO DAILY hydroxyzine HCl 25 mg tablet 25 mg PO QAM epinephrine 0.3 mg/0.3 mL auto-injector 0.3 mg IM DIRECTED PRN (Reason: severe reaction) albuterol sulfate 90 mcg/actuation HFA aerosol inhaler 2 puff INHALATION QID PRN (Reason: Shortness Of Breath) Rx Instructions: am, noon, evening & hs loratadine 10 mg Tablet 10 mg PO DAILY metoclopramide HCl 10 mg tablet 10 mg PO TID Rx Instructions: Take 1 tab tid, 30 min before meals metoclopramide HCl 10 mg tablet 20 mg PO HS insulin lispro [Admelog SoloStar U-100 Insulin] 100 unit/mL Insulin Pen 14 - 50 unit SUBCUT TID Rx Instructions: Plus correction scale 1;50>150 four times a day. Up to 50 units daily bupropion HCl 300 mg tablet extended release 24 hr 300 mg PO DAILY insulin glargine [Lantus Solostar U-100 Insulin] 100 unit/mL (3 mL) insulin pen 45 unit SUBCUT QPM magnesium oxide 500 mg capsule 500 mg PO DAILY Bevespi Aerosphere 9-4.8 mcg HFA aerosol inhaler 2 puff INHALATION AMHS Discharge Orders: Discharge Order (Routine); Ordered 02/14/23 Ordered By: Aaron Davis/Other Patient Handouts: Nutrition for Wound Healing, Managing Type 2 Diabetes Admission Data Admit Date/Time: 02/10/23 17:55 Attending Provider: Aaron López Admit Provider: Saskia Mccartney Primary Care Provider: Taran Schuler Other Providers: Darrion Gorman ; Saskia Mccartney ; [facility],Home Healthcare Other Interventions: Discharge Summary Assessment (RN) Last Done: 02/14/23 11:36
== END 2023-02-14 12:32 | disposition home health service (06) | DRG 571 ==
LOC: ED 11:33 → 2W 17:55 → SUATTDRO 17:55 → 2W 20:56 → 2N 02-13 15:18

== ENCOUNTER 2023-03-13 18:35 | Observation (INO) ==
[2023-03-13 19:41] LABS: Basophils # (auto) 0.17 K/uL (0.00-0.20); Basophils % (auto) 1.8 %; Eosinophils # (auto) 0.74 K/uL (0.00-0.50); Eosinophils % (auto) 7.7 %; Hematocrit (blood only) 40.3 % (42.0-52.0); Hemoglobin 13.1 g/dl (14.0-18.0); Immature Granulocytes # (auto) 0.03 K/uL (0.01-0.20); Immature Granulocytes % (auto) 0.3 %; Lymphocytes # (auto) 3.05 K/uL (1.20-3.40); Lymphocytes % (auto) 31.7 %; Mean Corpuscular Hemoglobin 25.6 pg (25.0-34.0); Mean Corpuscular Hgb Conc 32.5 g/dL (32.0-36.0); Mean Corpuscular Volume 78.7 fL (80.0-100.0); Mean Platelet Volume 8.6 fL (9.4-12.4); Monocytes # (auto) 0.57 K/uL (0.11-0.59); Monocytes % (auto) 5.9 %; Neutrophils # (auto) 5.06 K/uL (1.40-6.50); Neutrophils % (auto) 52.6 %; Platelet Count 454 K/uL (130-400); RDW Coefficient of Variation 14.7 % (11.5-14.5); RDW Standard Deviation 42.2 fL (36.4-46.3); Red Blood Count 5.12 M/uL (4.70-6.10); White Blood Count 9.62 K/ul (4.8-10.8)
[2023-03-13 19:59] LABS: Albumin Globulin Ratio 0.8 (0.9-2); BUN Creatinine Ratio 18.3 (10-20); Bilirubin,Total 0.2 mg/dl (0.2-1.0); Calcium 8.7 mg/dl (8.6-10.3); Est GFR (Non-African American) 94.1 ml/min; Magnesium 1.8 mg/dl (1.7-2.4); Potassium 3.8 mmol/L (3.5-5.1)
[2023-03-13 20:04] LABS: Troponin I High Sensitivity 6.6 pg/ml (0-20)
[2023-03-13 20:16] LABS: INR 0.9 (0.9-1.1); Prothrombin Time 9.9 Seconds (9.0-12.0)
--- NOTE | 2023-03-13 20:21 | Emergency Department Note ---
Impression & Plan Left leg swelling, Unable to care for self ED Provider Note Provider: Jaime Mcclure MD DATE OF SERVICE: 03/13/2023 CHIEF COMPLAINT: Leg redness, need for placement HISTORY OF PRESENT ILLNESS: Patient is a 52-year-old gentleman past medical history of diabetes, hypertension, GERD, and a gluteal abscess currently following with [facility] presenting here today with 2 main complaints. Firstly he states he noticed slight redness to the anterior distal left dasilva. States has been swollen for little bit and that he saw his outpatient doctor last week and did have an ultrasound that was reassuring at that time by his report. Denies any new trauma. Denies significant pain. Approximately 3 x 5 cm area with some slight redness. Denies other significant new lesions but states he does have a few scabs scattered on the lower legs otherwise bilaterally. States the gluteal wound is healing still somewhat painful but healing. No fevers reported. Denies chest pain or abdominal pain. Denies shortness of breath. Patient states his second reason for being here is that he lives with his aunt and he is not able to care for himself at home and she is not able to help him much. Reports that he is in a long-term several years ago and called them and they told him that he would have to come to the hospital to consider placement. He wishes for placement in nursing facility and states his current living situation he cannot care for himself and needs additional help. States that it is too much for them to care for him and the house is very dirty and that is why his feet are so dirty. PAST MEDICAL HISTORY: As noted above MEDICATIONS: Reviewed home medication list SOCIAL HISTORY: Lives with aunt, smoker, occasional alcohol. PHYSICAL EXAM: GENERAL: alert and oriented in no acute distress on stretcher Head: normocephalic and atraumatic EYES: No injection, discharge or icterus. NECK: Trachea midline. ENT: Mucous membranes pink and moist. LUNGS: Airway patent. No retractions. Breath sounds clear with good air entry bilaterally. HEART: Regular rate and rhythm. No chest wall tenderness ABDOMEN: Soft and non-tender, without guarding or rebound. SKIN: Acyanotic, warm, dry, without rashes EXTREMITIES: Patient with 1+ edema of the left lower extremity. No significant tenderness of the lower legs bilaterally. A few scattered healing abrasions on both lower legs with an approximately 3 x 5 cm area of some slight redness in the left distal anterior dasilva without fluctuance or again tenderness. Bilateral feet are covered in brown to black EXTR. NEUROLOGICAL: No focal deficits gross sensation intact bilaterally in the lower legs.. No aphasia. No facial droop or slurred speech. Ambulatory. EK bpm in normal sinus rhythm. No PVC or PAC. No acute ST segment elevation or depression with a QTc of 467. CONTINUOUS CARDIAC MONITORING: was ordered and showed a heart rate of 80s-90s bpm in normal sinus rhythm 1 view chest x-ray per my interpretation: No free under the diaphragm. No evidence of pneumonia. No significant pulmonary edema noted. No cardiomegaly. No pneumothorax. Patient's laboratory studies and imaging reviewed. Differential includes DVT, musculoskeletal, infection, joint effusion, trauma, lymphedema, idiopathic, CHF, as well as other pathologies. IMPRESSION/MEDICAL DECISION MAKING: Patient with clear but asymmetric swelling to the left leg. Although he reports he had an outpatient ultrasound we will complete day 1 here to exclude underlying DVT. No evidence of large open wound but some healing scabs. Does not appear that cellulitic almost looks like a slight irritation almost contact dermatitis. No significant blistering or vesicles. Patient denies any acute issues with the healing gluteal wound and denies other systemic symptoms. Wishes for placement. May Case management aware. Basic labs obtained. No significant acidosis or evidence of severe anemia. Slight hyponatremia. No other severe electrolyte abnormality signs of renal dysfunction. No troponin elevation. No evidence of hepatitis or TSH dysfunction. Negative urinalysis and negative COVID testing. Doubt this represents CHF and he does not appear septic. Was at wound care today by available notes in the system that were reviewed. Wishes for observation until longer-term placement. Given this discussed with hospitalist. DIAGNOSIS: Left leg swelling, inability to care for himself DISPOSITION: Hospitalist will evaluate Patient was agreeable with this plan. Past Med/Surg History Medical History (Updated 03/14/23 @ 00:07 by Jaime Mcclure M.D.) Abscess and cellulitis of gluteal region Depression GERD (gastroesophageal reflux disease) HLD (hyperlipidemia) HTN (hypertension) Insulin dependent type 2 diabetes mellitus Surgical History (Updated 02/27/23 @ 10:13 by Taniya Dodd RN) History of incision and drainage (02/11/23) Incision and Drainage Gluteal Absces with excision of Pilonidal Cyst Darrion Gorman, DO, FACS Hx of removal of testicle No pertinent past surgical history Status post vasectomy Family History Other COPD (chronic obstructive pulmonary disease) Diabetes Social History (Updated 02/27/23 @ 10:18 by Taniya Dodd RN) Smoking Status: Current every day smoker Tobacco Type: Cigarettes Second Hand Exposure: No; Do You Dip or Chew Tobacco: No; Hx Alcohol Use: Yes Alcohol type: hard liquor Alcohol Intake Frequency Comment: Vodka or rum 1/2 gallon monthly for physical pain, and "likes the buzz" Hx Substance Use: No Preferred Language: Estonian Communication Ability: Effective Visual Impairment: Limited Hearing Ability: Normal Health And Safety Trainer Required: No Beliefs That Will Affect Care: None marital status: Current Living Situation: Family Current Living Situation Comment: Lives with Aunt Catherine. Brother is also currently staying there. current occupational status: disabled How many Children do You have: 3 How many Children do You have Comment: Children are not local. Lives with aunt who is unable to assist with care. Feels Safe at Home: Yes Diet: diabetic Diet Comment: "Junk food here and there" during the past year weight has: remained stable Do you think of yourself as: straight/heterosexual Assistive Devices: Cane and Walker Allergies Allergies Allergy/AdvReac Type Severity Reaction Status Date / Time bee venom protein (honey bee) Allergy Severe SWELLING Verified 03/13/23 20:41 liraglutide [From Victoza] Allergy Severe Difficulty Verified 03/13/23 20:41 Breathing Penicillins Allergy Severe THROAT Verified 03/13/23 20:41 CLOSING Sulfa (Sulfonamide AdvReac Intermediate Gastrointestinal Verified 03/13/23 20:41 Antibiotics) Upset Home Meds Home Medications Medication Instructions Recorded Confirmed acetaminophen 650 mg 650 mg PO BID PRN Pain 12/03/22 03/13/23 tablet,extended release albuterol sulfate 90 mcg/actuation 2 puff inhalation QID PRN 12/03/22 03/13/23 aerosol inhaler Shortness Of Breath aspirin 81 mg chewable tablet 81 mg PO DAILY 12/03/22 03/13/23 atorvastatin 40 mg tablet 40 mg PO DAILY 12/03/22 03/13/23 cyanocobalamin (vitamin B-12) 1,000 mcg PO DAILY 12/03/22 03/13/23 1,000 mcg tablet cyclobenzaprine 10 mg tablet 10 mg PO HS PRN .restless leg 12/03/22 03/13/23 epinephrine 0.3 mg/0.3 mL 0.3 mg IM DIRECTED PRN severe 12/03/22 03/13/23 injection, auto-injector reaction fluoxetine 40 mg capsule 40 mg PO DAILY 12/03/22 03/13/23 gabapentin 400 mg capsule 400 mg PO TID 12/03/22 03/13/23 glycopyrrolate 9 mcg-formoterol 2 puff inhalation AMHS 12/03/22 03/13/23 4.8 mcg HFA aerosol inhaler (Bevespi Aerosphere) ibuprofen 800 mg tablet 800 mg PO TID PRN Pain 12/03/22 03/13/23 insulin glargine 100 unit/mL (3 45 unit subcut QPM 12/03/22 03/13/23 mL) subcutaneous pen (Lantus Solostar U-100 Insulin) insulin lispro 100 unit/mL 14 - 50 unit subcut TID 12/03/22 03/13/23 subcutaneous pen (Admelog SoloStar U-) lamotrigine 200 mg tablet 200 mg PO AMHS 12/03/22 03/13/23 loratadine 10 mg tablet 10 mg PO DAILY 12/03/22 03/13/23 losartan 50 mg tablet 50 mg PO QAM 12/03/22 03/13/23 magnesium oxide 500 mg capsule 500 mg PO DAILY 12/03/22 03/13/23 metformin 500 mg tablet 1,000 mg PO QAM 12/03/22 03/13/23 metoclopramide HCl 10 mg tablet 10 mg PO TID 12/03/22 03/13/23 metoclopramide HCl 10 mg tablet 20 mg PO HS 12/03/22 03/13/23 pantoprazole 40 mg tablet,delayed 40 mg PO QAM 12/03/22 03/13/23 release hydroxyzine HCl 25 mg tablet 25 mg PO TID 02/27/23 03/13/23 quetiapine 25 mg tablet 25 mg PO TID Anxiety 02/27/23 03/13/23 ropinirole 2 mg tablet 4 mg PO HS 02/27/23 03/13/23 Previous Rx's Medication Instructions Recorded oxycodone 5 mg tablet 5 mg PO Q6H PRN pain #10 tabs 02/14/23 Results & Data (ED) Vital Signs Vital Signs - 24 hr 03/13/23 18:41 03/13/23 18:59 03/13/23 19:03 Temperature 37.3 C Temperature Source Oral Pulse Rate 98 H Pulse Rate [Right Radial] Respiratory Rate 18 Respiratory Effort / Characteristics Non-Labored Respiratory Depth Normal Respiratory Pattern Regular Blood Pressure 156/96 H Blood Pressure [Left Arm] Blood Pressure Mean 116 Blood Pressure Mean [Left Arm] Pulse Oximetry 93 96 Oxygen Delivery Method Room Air Room Air Room Air Sepsis Recent Fever Within 48 Hours No Sepsis New/Unexplained Change in Mental Status No Sepsis Action Taken by Nursing No Action Required 03/13/23 20:59 03/13/23 22:00 Temperature Temperature Source Pulse Rate Pulse Rate [Right Radial] 86 83 Respiratory Rate 18 17 Respiratory Effort / Characteristics Respiratory Depth Respiratory Pattern Blood Pressure Blood Pressure [Left Arm] 185/103 H 180/95 H Blood Pressure Mean Blood Pressure Mean [Left Arm] 130 123 Pulse Oximetry 97 97 Oxygen Delivery Method Room Air Sepsis Recent Fever Within 48 Hours Sepsis New/Unexplained Change in Mental Status Sepsis Action Taken by Nursing Laboratory Data 03/13/23 19:14 03/13/23 19:14 Lab Results 03/13/23 03/13/23 03/13/23 Range/Units 19:11 19:14 19:14 WBC 9.62 (4.8-10.8) K/ul RBC 5.12 (4.70-6.10) M/uL Hgb 13.1 L (14.0-18.0) g/dl Hct 40.3 L (42.0-52.0) % MCV 78.7 L (80.0-100.0) fL MCH 25.6 (25.0-34.0) pg MCHC 32.5 (32.0-36.0) g/dL RDW Std Deviation 42.2 (36.4-46.3) fL RDW Coeff of Estefania 14.7 H (11.5-14.5) % Plt Count 454 H (130-400) K/uL MPV 8.6 L (9.4-12.4) fL Immature Gran % (Auto) 0.3 % Neut % (Auto) 52.6 % Lymph % (Auto) 31.7 % Camp % (Auto) 5.9 % Eos % (Auto) 7.7 % Baso % (Auto) 1.8 % Neut # (Auto) 5.06 (1.40-6.50) K/uL Lymph # (Auto) 3.05 (1.20-3.40) K/uL Camp # (Auto) 0.57 (0.11-0.59) K/uL Eos # (Auto) 0.74 H (0.00-0.50) K/uL Baso # (Auto) 0.17 (0.00-0.20) K/uL Immature Gran # (Auto) 0.03 (0.01-0.20) K/uL PT 9.9 (9.0-12.0) Seconds INR 0.9 (0.9-1.1) Sodium (136-145) mmol/L Potassium (3.5-5.1) mmol/L Chloride (98-107) mmol/L Carbon Dioxide (21-32) mmol/L Anion Gap (3-11) BUN (6-23) mg/dl Creatinine (0.6-1.4) mg/dl Est Cr Clr Drug Dosing ml/min Est GFR ( Amer) ml/min Est GFR (Non-Af Amer) ml/min BUN/Creatinine Ratio (10-20) Glucose (70-99(Fasting)) mg/dl Calcium (8.6-10.3) mg/dl Magnesium (1.7-2.4) mg/dl Total Bilirubin (0.2-1.0) mg/dl AST (13-39) U/L ALT (7-52) U/L Alkaline Phosphatase (34-104) U/L Troponin I High Sens (0-20) pg/ml B-Natriuretic Peptide (0-100) pg/ml Total Protein (6.0-8.3) gm/dl Albumin (3.4-5.0) gm/dl Globulin (2.5-4.0) gm/dl Albumin/Globulin Ratio (0.9-2) TSH (0.300-4.500) uIu/ml Urine Color Urine Appearance (Clear) Urine pH (4.5-7.5) Ur Specific [place] (1.000-1.030) Urine Protein (Negative) Urine Glucose (UA) (Negative) Urine Ketones (Negative) Urine Blood (Negative) Urine Nitrite (Negative) Urine Bilirubin (Negative) Urine Urobilinogen (Negative) Ur Leukocyte Esterase (Negative) Urine WBC (Auto) (0-5) /hpf Urine RBC (Auto) (0-4) /hpf U Hyaline Cast (Auto) (0-5) /lpf U Epithel Cells (Auto) (0-5) /lpf Urine Bacteria (Auto) (Negative) SARS-CoV-2, RNA, NAAT NEGATIVE (NEGATIVE) 03/13/23 03/13/23 03/13/23 Range/Units 19:14 19:14 19:14 WBC (4.8-10.8) K/ul RBC (4.70-6.10) M/uL Hgb (14.0-18.0) g/dl Hct (42.0-52.0) % MCV (80.0-100.0) fL MCH (25.0-34.0) pg MCHC (32.0-36.0) g/dL RDW Std Deviation (36.4-46.3) fL RDW Coeff of Estefania (11.5-14.5) % Plt Count (130-400) K/uL MPV (9.4-12.4) fL Immature Gran % (Auto) % Neut % (Auto) % Lymph % (Auto) % Camp % (Auto) % Eos % (Auto) % Baso % (Auto) % Neut # (Auto) (1.40-6.50) K/uL Lymph # (Auto) (1.20-3.40) K/uL Camp # (Auto) (0.11-0.59) K/uL Eos # (Auto) (0.00-0.50) K/uL Baso # (Auto) (0.00-0.20) K/uL Immature Gran # (Auto) (0.01-0.20) K/uL PT (9.0-12.0) Seconds INR (0.9-1.1) Sodium 131 L (136-145) mmol/L Potassium 3.8 (3.5-5.1) mmol/L Chloride 102 (98-107) mmol/L Carbon Dioxide 26 (21-32) mmol/L Anion Gap 3 (3-11) BUN 17 (6-23) mg/dl Creatinine 0.93 (0.6-1.4) mg/dl Est Cr Clr Drug Dosing 101.0 ml/min Est GFR ( Amer) 109.0 ml/min Est GFR (Non-Af Amer) 94.1 ml/min BUN/Creatinine Ratio 18.3 (10-20) Glucose 130 H (70-99(Fasting)) mg/dl Calcium 8.7 (8.6-10.3) mg/dl Magnesium 1.8 (1.7-2.4) mg/dl Total Bilirubin 0.2 (0.2-1.0) mg/dl AST 15 (13-39) U/L ALT 8 (7-52) U/L Alkaline Phosphatase 127 H (34-104) U/L Troponin I High Sens 6.6 (0-20) pg/ml B-Natriuretic Peptide 53 (0-100) pg/ml Total Protein 7.0 (6.0-8.3) gm/dl Albumin 3.0 L (3.4-5.0) gm/dl Globulin 4.0 (2.5-4.0) gm/dl Albumin/Globulin Ratio 0.8 L (0.9-2) TSH 0.801 (0.300-4.500) uIu/ml Urine Color Urine Appearance (Clear) Urine pH (4.5-7.5) Ur Specific [place] (1.000-1.030) Urine Protein (Negative) Urine Glucose (UA) (Negative) Urine Ketones (Negative) Urine Blood (Negative) Urine Nitrite (Negative) Urine Bilirubin (Negative) Urine Urobilinogen (Negative) Ur Leukocyte Esterase (Negative) Urine WBC (Auto) (0-5) /hpf Urine RBC (Auto) (0-4) /hpf U Hyaline Cast (Auto) (0-5) /lpf U Epithel Cells (Auto) (0-5) /lpf Urine Bacteria (Auto) (Negative) SARS-CoV-2, RNA, NAAT (NEGATIVE) 03/13/23 Range/Units 19:19 WBC (4.8-10.8) K/ul RBC (4.70-6.10) M/uL Hgb (14.0-18.0) g/dl Hct (42.0-52.0) % MCV (80.0-100.0) fL MCH (25.0-34.0) pg MCHC (32.0-36.0) g/dL RDW Std Deviation (36.4-46.3) fL RDW Coeff of Estefania (11.5-14.5) % Plt Count (130-400) K/uL MPV (9.4-12.4) fL Immature Gran % (Auto) % Neut % (Auto) % Lymph % (Auto) % Camp % (Auto) % Eos % (Auto) % Baso % (Auto) % Neut # (Auto) (1.40-6.50) K/uL Lymph # (Auto) (1.20-3.40) K/uL Camp # (Auto) (0.11-0.59) K/uL Eos # (Auto) (0.00-0.50) K/uL Baso # (Auto) (0.00-0.20) K/uL Immature Gran # (Auto) (0.01-0.20) K/uL PT (9.0-12.0) Seconds INR (0.9-1.1) Sodium (136-145) mmol/L Potassium (3.5-5.1) mmol/L Chloride (98-107) mmol/L Carbon Dioxide (21-32) mmol/L Anion Gap (3-11) BUN (6-23) mg/dl Creatinine (0.6-1.4) mg/dl Est Cr Clr Drug Dosing ml/min Est GFR ( Amer) ml/min Est GFR (Non-Af Amer) ml/min BUN/Creatinine Ratio (10-20) Glucose (70-99(Fasting)) mg/dl Calcium (8.6-10.3) mg/dl Magnesium (1.7-2.4) mg/dl Total Bilirubin (0.2-1.0) mg/dl AST (13-39) U/L ALT (7-52) U/L Alkaline Phosphatase (34-104) U/L Troponin I High Sens (0-20) pg/ml B-Natriuretic Peptide (0-100) pg/ml Total Protein (6.0-8.3) gm/dl Albumin (3.4-5.0) gm/dl Globulin (2.5-4.0) gm/dl Albumin/Globulin Ratio (0.9-2) TSH (0.300-4.500) uIu/ml Urine Color Yellow Urine Appearance Clear (Clear) Urine pH 6.5 (4.5-7.5) Ur Specific [place] 1.019 (1.000-1.030) Urine Protein 3+ H (Negative) Urine Glucose (UA) Trace H (Negative) Urine Ketones Negative (Negative) Urine Blood Negative (Negative) Urine Nitrite Negative (Negative) Urine Bilirubin Negative (Negative) Urine Urobilinogen Negative (Negative) Ur Leukocyte Esterase Negative (Negative) Urine WBC (Auto) 1-5 (0-5) /hpf Urine RBC (Auto) 0-4 (0-4) /hpf U Hyaline Cast (Auto) 1-5 (0-5) /lpf U Epithel Cells (Auto) 5-10 H (0-5) /lpf Urine Bacteria (Auto) Negative (Negative) SARS-CoV-2, RNA, NAAT (NEGATIVE) Administered Medications Discontinued Medications Albuterol (Albut/Ipratrop 3mg/0.5mg Neb 3 Ml Vial) 3 ml NEB NOW STA; Protocol Stop: 03/13/23 23:13 Last Admin: 03/13/23 23:16 Dose: 3 ml Documented By: [facility] [place] Imaging Data Radiologist's Impression: Chest X-Ray 03/13/23 19:00 SINGLE VIEW CHEST CLINICAL HISTORY: Lower extremity edema FINDINGS: An AP, portable, upright chest radiograph is compared to study dated 12/01/2022. The examination is degraded by portable technique and apical lordotic positioning. The cardiomediastinal silhouette is top normal for ejection. Emphysema and chronic interstitial thickening is similar to previous. There is mild bibasilar scarring/atelectasis. No airspace consolidation or large pleural effusion is identified. No pneumothorax is seen. The bony thorax is grossly intact. IMPRESSION: Emphysematous change with no active disease in the chest. ACT 112: Negative or not required by law. Electronically signed by: Tremaine Heller M.D. 03/13/2023 9:39 PM Venous Doppler Study 03/13/23 19:00 ULTRASOUND LEFT LOWER EXTREMITY VENOUS CLINICAL HISTORY: Left leg swelling. COMPARISON STUDY: No priors. TECHNIQUE: Real-time, grayscale, and color Doppler sonography of the deep veins of the left lower extremity was performed from the inguinal crease to the calf. Compression and augmentation were utilized. FINDINGS: There is no sonographic evidence of deep venous thrombosis identified in the left lower extremity. The common femoral, superficial femoral, and popliteal veins are patent and normally compressible. The greater saphenous vein and the profunda femoris vein at the junction with the common femoral vein are clear. The visualized calf veins are patent. Calcifications are seen within a superficial vein in the popliteal fossa. IMPRESSION: 1. There is no sonographic evidence of acute deep venous thrombosis identified in the left lower extremity. 2. Calcifications are seen within a superficial vein in the popliteal fossa, possibly representing a small amount of chronic thrombus. ACT 112: Negative or not required by law. Electronically signed by: Tremaine Heller M.D. 03/13/2023 9:01 PM Discharge Plan Visit Data Chief Complaint: Illness ED Provider: Jaime Mcclure Discharge Problem: Left leg swelling, Unable to care for self Patient Disposition: Being Evaluated by Hospitalist Forms Stand Alone Forms: My [facility] Prescriptions Prescriptions: No Action oxycodone 5 mg Tablet 5 mg PO Q6H PRN (Reason: pain) Qty: 10 0RF losartan 50 mg tablet 50 mg PO QAM fluoxetine 40 mg capsule 40 mg PO DAILY cyclobenzaprine 10 mg Tablet 10 mg PO HS PRN (Reason: .restless leg) atorvastatin 40 mg Tablet 40 mg PO DAILY metformin 500 mg tablet 1,000 mg PO QAM lamotrigine 200 mg tablet 200 mg PO AMHS ibuprofen 800 mg tablet 800 mg PO TID PRN (Reason: Pain) Rx Instructions: AM, NOON & HS gabapentin 400 mg capsule 400 mg PO TID cyanocobalamin (vitamin B-12) 1,000 mcg tablet 1,000 mcg PO DAILY acetaminophen 650 mg tablet extended release 650 mg PO BID PRN (Reason: Pain) pantoprazole 40 mg tablet,delayed release (DR/EC) 40 mg PO QAM aspirin 81 mg Tablet,Chewable 81 mg PO DAILY epinephrine 0.3 mg/0.3 mL auto-injector 0.3 mg IM DIRECTED PRN (Reason: severe reaction) albuterol sulfate 90 mcg/actuation HFA aerosol inhaler 2 puff INHALATION QID PRN (Reason: Shortness Of Breath) Rx Instructions: am, noon, evening & hs loratadine 10 mg Tablet 10 mg PO DAILY metoclopramide HCl 10 mg tablet 10 mg PO TID Rx Instructions: Take 1 tab tid, 30 min before meals metoclopramide HCl 10 mg tablet 20 mg PO HS insulin lispro [Admelog SoloStar U-100 Insulin] 100 unit/mL Insulin Pen 14 - 50 unit SUBCUT TID Rx Instructions: Plus correction scale 1;50>150 four times a day. Up to 50 units daily insulin glargine [Lantus Solostar U-100 Insulin] 100 unit/mL (3 mL) insulin pen 45 unit SUBCUT QPM magnesium oxide 500 mg capsule 500 mg PO DAILY Bevespi Aerosphere 9-4.8 mcg HFA aerosol inhaler 2 puff INHALATION AMHS hydroxyzine HCl 25 mg tablet 25 mg PO TID quetiapine 25 mg tablet 25 mg PO TID Rx Instructions: Take 1 tab PRN in am, noon & evening . ropinirole 2 mg tablet 4 mg PO HS Rx Instructions: Also takes as needed Referrals Referrals: Taran Schuler DO [Primary Care Provider] -
[2023-03-13 20:22] LABS: Appearance Urine Clear (Clear); Bacteria Urine Automated Negative (Negative); Bilirubin Urine Negative (Negative); Blood Urine Negative (Negative); Color Urine Yellow; Glucose Urine UA Trace (Negative); Ketones Urine Negative (Negative); Leukocyte Esterase Urine Negative (Negative); Nitrite Urine Negative (Negative); Protein Urine 3+ (Negative); RBC Urine Automated 0-4 /hpf (0-4); Specific Gravity Urine 1.019 (1.000-1.030); Urobilinogen Urine Negative (Negative); pH Urine 6.5 (4.5-7.5)
--- NOTE | 2023-03-13 21:03 | Ultrasound Report ---
ULTRASOUND LEFT LOWER EXTREMITY VENOUS CLINICAL HISTORY: Left leg swelling. COMPARISON STUDY: No priors. TECHNIQUE: Real-time, grayscale, and color Doppler sonography of the deep veins of the left lower ext remity was performed from the inguinal crease to the calf. Compression and augmentation were utilized . FINDINGS: There is no sonographic evidence of deep venous thrombosis identified in the left lower ext remity. The common femoral, superficial femoral, and popliteal veins are patent and normally compress ible. The greater saphenous vein and the profunda femoris vein at the junction with the common femora l vein are clear. The visualized calf veins are patent. Calcifications are seen within a superficial vein in the popliteal fossa. IMPRESSION: 1. There is no sonographic evidence of acute deep venous thrombosis identified in the left lower extr emity. 2. Calcifications are seen within a superficial vein in the popliteal fossa, possibly representing a small amount of chronic thrombus. ACT 112: Negative or not required by law. Electronically signed by: Tremaine Heller M.D. 03/13/2023 9:01 PM
--- NOTE | 2023-03-13 21:41 | XRay Report ---
SINGLE VIEW CHEST CLINICAL HISTORY: Lower extremity edema FINDINGS: An AP, portable, upright chest radiograph is compared to study dated 12/01/2022. The examina tion is degraded by portable technique and apical lordotic positioning. The cardiomediastinal silhoue tte is top normal for ejection. Emphysema and chronic interstitial thickening is similar to previous. There is mild bibasilar scarring/atelectasis. No airspace consolidation or large pleural effusion is identified. No pneumothorax is seen. The bony thorax is grossly intact. IMPRESSION: Emphysematous change with no active disease in the chest. ACT 112: Negative or not required by law. Electronically signed by: Tremaine Heller M.D. 03/13/2023 9:39 PM
[2023-03-13] MEDS ORDERED: ALBUT/IPRATROP 3MG/0.5MG NEB 3 ML VIAL NEB STA (23:12)
[2023-03-14] MEDS ORDERED: oxyCODONE HCL IR 5 MG TAB (IMMEDIATE RELEASE) PO STA (00:14)
--- NOTE | 2023-03-14 01:26 | History & Physical Report ---
Date of Service March 14, 2023 Assessment & Plan (1) Surgical wound, non healing: Plan: 52-year-old male past medical history significant for type 2 diabetes, hyperlipidemia, asthma, hypertension, history of CVA, GERD, bipolar 1 disorder, history of alcohol dependence in remission, cannabis dependence in remission, adjustment disorder with depression, history of diverticulitis, PTSD, who lives at home with his aunt comes because of gluteal wound and request for placement. Gluteal wound S/p I&D of gluteal abscess February 11 Was discharged on wound VAC Currently not on wound VAC Patient states he is following with wound care Has some drainage from the gluteal wound We will follow cultures Empiric IV clinda and Azactam Surgery consult Wound care Unable to care for self Lives with his aunt who is 75 years old Says he could not take care of himself and request placement He says he requires 7 days care for his wound History of depression Bipolar disorder PTSD Continues home medications Diabetes Continue home Lantus Hold p.o. medications Insulin sliding scale We will monitor the blood sugars and HbA1c levels DVT prophylaxis Lovenox for now Disposition observation medical floor Full code (2) Unable to care for self: History of Present Illness Chief Complaint: Gluteal wound and request for placement Primary Care Provider: Taran Schuler DO 52-year-old male past medical history significant for type 2 diabetes, hyperlipidemia, asthma, hypertension, history of CVA, GERD, bipolar 1 disorder, history of alcohol dependence in remission, cannabis dependence in remission, adjustment disorder with depression, history of diverticulitis, PTSD, who lives at home with his aunt comes because of gluteal wound and request for placement. Patient was recently in the hospital for gluteal abscess s/p I&D done on the second of the February 2023 and s/p wound VAC placement treated with antibiotics. Patient states he follows with wound care. He also gets home health nurse 3 times a week but he want 7 times a week. He says he is not able to take care of himself at home. He likes to go to a penitentiary. Has some drainage from the gluteal wound. No wound vac seen. Also some question of some erythematous changes in the left lower extremity,Doppler was done and no acute DVT was found. Currently resting comfortable hemodynamic stable. Denies any headache. No earache or runny nose or sore throat. No chest pain. Has some shortness of breath. No fevers. No nausea. No abdominal pain. Normal bowel and bladder movements. 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 Social history 1 pack a day for 34 years. 3 standings of alcohol per week. No drug use currently. Family history Brother has bipolar. Father has bipolar, aortic aneurysm. Mother has lung cancer, diabetes, hypertension, emphysema. Uncle has heart disorder Allergies Allergy/AdvReac Type Severity Reaction Status Date / Time bee venom protein (honey bee) Allergy Severe SWELLING Verified 03/13/23 20:41 liraglutide [From Victoza] Allergy Severe Difficulty Verified 03/13/23 20:41 Breathing Penicillins Allergy Severe THROAT Verified 03/13/23 20:41 CLOSING Sulfa (Sulfonamide AdvReac Intermediate Gastrointestinal Verified 03/13/23 20:41 Antibiotics) Upset Home Medications Medication Instructions Recorded Confirmed Type acetaminophen 650 mg 650 mg PO BID PRN Pain 12/03/22 03/13/23 History tablet,extended release albuterol sulfate 90 mcg/actuation 2 puff inhalation QID PRN 12/03/22 03/13/23 History aerosol inhaler Shortness Of Breath aspirin 81 mg chewable tablet 81 mg PO DAILY 12/03/22 03/13/23 History atorvastatin 40 mg tablet 40 mg PO DAILY 12/03/22 03/13/23 History cyanocobalamin (vitamin B-12) 1,000 mcg PO DAILY 12/03/22 03/13/23 History 1,000 mcg tablet cyclobenzaprine 10 mg tablet 10 mg PO HS PRN .restless leg 12/03/22 03/13/23 History epinephrine 0.3 mg/0.3 mL 0.3 mg IM DIRECTED PRN severe 12/03/22 03/13/23 History injection, auto-injector reaction fluoxetine 40 mg capsule 40 mg PO DAILY 12/03/22 03/13/23 History gabapentin 400 mg capsule 400 mg PO TID 12/03/22 03/13/23 History glycopyrrolate 9 mcg-formoterol 2 puff inhalation AMHS 12/03/22 03/13/23 History 4.8 mcg HFA aerosol inhaler (BevesDiabetes Care Groupphere) ibuprofen 800 mg tablet 800 mg PO TID PRN Pain 12/03/22 03/13/23 History insulin glargine 100 unit/mL (3 45 unit subcut QPM 12/03/22 03/13/23 History mL) subcutaneous pen (Lantus Solostar U-100 Insulin) insulin lispro 100 unit/mL 14 - 50 unit subcut TID 12/03/22 03/13/23 History subcutaneous pen (Admelog SoloStar U-) lamotrigine 200 mg tablet 200 mg PO AMHS 12/03/22 03/13/23 History loratadine 10 mg tablet 10 mg PO DAILY 12/03/22 03/13/23 History losartan 50 mg tablet 50 mg PO QAM 12/03/22 03/13/23 History magnesium oxide 500 mg capsule 500 mg PO DAILY 12/03/22 03/13/23 History metformin 500 mg tablet 1,000 mg PO QAM 12/03/22 03/13/23 History metoclopramide HCl 10 mg tablet 10 mg PO TID 12/03/22 03/13/23 History metoclopramide HCl 10 mg tablet 20 mg PO HS 12/03/22 03/13/23 History pantoprazole 40 mg tablet,delayed 40 mg PO QAM 12/03/22 03/13/23 History release oxycodone 5 mg tablet 5 mg PO Q6H PRN pain #10 tabs 02/14/23 03/13/23 Rx hydroxyzine HCl 25 mg tablet 25 mg PO TID 02/27/23 03/13/23 History quetiapine 25 mg tablet 25 mg PO TID PRN Anxiety 02/27/23 03/13/23 History ropinirole 2 mg tablet 4 mg PO HS 02/27/23 03/13/23 History Past Med/Surg History Medical History Abscess and cellulitis of gluteal region Depression GERD (gastroesophageal reflux disease) HLD (hyperlipidemia) HTN (hypertension) Insulin dependent type 2 diabetes mellitus Surgical History History of incision and drainage (02/11/23) Incision and Drainage Gluteal Absces with excision of Pilonidal Cyst Darrion Gorman DO, FACS Hx of removal of testicle No pertinent past surgical history Status post vasectomy Family History Other COPD (chronic obstructive pulmonary disease) Diabetes Social History Smoking Status: Current every day smoker Tobacco Type: Cigarettes Cigarettes Per Day: 1 pack per day; Second Hand Exposure: No; Do You Dip or Chew Tobacco: No; Hx Alcohol Use: Yes Alcohol type: hard liquor Alcohol Intake Frequency Comment: Vodka or rum 1/2 gallon monthly for physical pain, and "likes the buzz" Hx Substance Use: No Preferred Language: Greenlandic Communication Ability: Effective Visual Impairment: Limited Hearing Ability: Normal 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 Brother is also currently staying there. current occupational status: disabled How many Children do You have: 3 How many Children do You have Comment: Children are not local. Lives with aunt who is unable to assist with care. Feels Safe at Home: Yes Safety Concerns: Feels Safe At This Time Diet: diabetic Diet Comment: "Junk food here and there" during the past year weight has: remained stable Do you think of yourself as: straight/heterosexual Assistive Devices: None Review of Systems Review of Systems: All systems reviewed & are unremarkable except as noted in HPI & below Physical Exam Physical Exam: General- Not in distress Head- atraumatic Eyes- PERRL. ENT- oropharynx clear Neck- supple, Lungs- clear to auscultation no wheezing or crackles. Heart- regular rhythm; no murmur, no gallop. Abdomen- normal bowel sounds, soft, nontender, no distension. Extremities- no pretibial edema, scabs seen b/l legs. Neuro- alert, oriented x 3; PERRL,no facial palsy; no dysarthria; moves extremities. Skin- deep gluteal wound near coccyx with drainage seen. Results & Data Results & Data Vital Signs (Past 12 Hours) Vital Signs Temp Pulse Pulse Resp BP BP Pulse Ox 03/13/23 22:00 83 17 180/95 H 97 03/13/23 20:59 86 18 185/103 H 97 03/13/23 19:03 96 03/13/23 18:59 03/13/23 18:41 37.3 C 98 H 18 156/96 H 93 O2 Del Method 03/13/23 22:00 Room Air 03/13/23 20:59 03/13/23 19:03 Room Air 03/13/23 18:59 Room Air 03/13/23 18:41 Room Air Diagnostic Findings Laboratory Results WBC 9.62 K/ul (4.8-10.8) 03/13/23 19:14 RBC 5.12 M/uL (4.70-6.10) 03/13/23 19:14 Hgb 13.1 g/dl (14.0-18.0) L 03/13/23 19:14 Hct 40.3 % (42.0-52.0) L 03/13/23 19:14 MCV 78.7 fL (80.0-100.0) L 03/13/23 19:14 MCH 25.6 pg (25.0-34.0) 03/13/23 19:14 MCHC 32.5 g/dL (32.0-36.0) 03/13/23 19:14 RDW Std Deviation 42.2 fL (36.4-46.3) 03/13/23 19:14 RDW Coeff of Estefania 14.7 % (11.5-14.5) H 03/13/23 19:14 Plt Count 454 K/uL (130-400) H 03/13/23 19:14 MPV 8.6 fL (9.4-12.4) L 03/13/23 19:14 Immature Gran % (Auto) 0.3 % 03/13/23 19:14 Neut % (Auto) 52.6 % 03/13/23 19:14 Lymph % (Auto) 31.7 % 03/13/23 19:14 [place] % (Auto) 5.9 % 03/13/23 19:14 Eos % (Auto) 7.7 % 03/13/23 19:14 Baso % (Auto) 1.8 % 03/13/23 19:14 Neut # (Auto) 5.06 K/uL (1.40-6.50) 03/13/23 19:14 Lymph # (Auto) 3.05 K/uL (1.20-3.40) 03/13/23 19:14 [place] # (Auto) 0.57 K/uL (0.11-0.59) 03/13/23 19:14 Eos # (Auto) 0.74 K/uL (0.00-0.50) H 03/13/23 19:14 Baso # (Auto) 0.17 K/uL (0.00-0.20) 03/13/23 19:14 Immature Gran # (Auto) 0.03 K/uL (0.01-0.20) 03/13/23 19:14 PT 9.9 Seconds (9.0-12.0) 03/13/23 19:14 INR 0.9 (0.9-1.1) 03/13/23 19:14 Sodium 131 mmol/L (136-145) L 03/13/23 19:14 Potassium 3.8 mmol/L (3.5-5.1) 03/13/23 19:14 Chloride 102 mmol/L (98-107) 03/13/23 19:14 Carbon Dioxide 26 mmol/L (21-32) 03/13/23 19:14 Anion Gap 3 (3-11) 03/13/23 19:14 BUN 17 mg/dl (6-23) 03/13/23 19:14 Creatinine 0.93 mg/dl (0.6-1.4) 03/13/23 19:14 Est Cr Clr Drug Dosing 101.0 ml/min 03/13/23 19:14 Est GFR ( Amer) 109.0 ml/min 03/13/23 19:14 Est GFR (Non-Af Amer) 94.1 ml/min 03/13/23 19:14 BUN/Creatinine Ratio 18.3 (10-20) 03/13/23 19:14 Glucose 130 mg/dl (70-99(Fasting)) H 03/13/23 19:14 Calcium 8.7 mg/dl (8.6-10.3) 03/13/23 19:14 Magnesium 1.8 mg/dl (1.7-2.4) 03/13/23 19:14 Total Bilirubin 0.2 mg/dl (0.2-1.0) 03/13/23 19:14 AST 15 U/L (13-39) 03/13/23 19:14 ALT 8 U/L (7-52) 03/13/23 19:14 Alkaline Phosphatase 127 U/L (34-104) H 03/13/23 19:14 Troponin I High Sens 6.6 pg/ml (0-20) 03/13/23 19:14 B-Natriuretic Peptide 53 pg/ml (0-100) 03/13/23 19:14 Total Protein 7.0 gm/dl (6.0-8.3) 03/13/23 19:14 Albumin 3.0 gm/dl (3.4-5.0) L 03/13/23 19:14 Globulin 4.0 gm/dl (2.5-4.0) 03/13/23 19:14 Albumin/Globulin Ratio 0.8 (0.9-2) L 03/13/23 19:14 TSH 0.801 uIu/ml (0.300-4.500) 03/13/23 19:14 Urine Color Yellow 03/13/23 19:19 Urine Appearance Clear (Clear) 03/13/23 19:19 Urine pH 6.5 (4.5-7.5) 03/13/23 19:19 Ur Specific [place] 1.019 (1.000-1.030) 03/13/23 19:19 Urine Protein 3+ (Negative) H 03/13/23 19:19 Urine Glucose (UA) Trace (Negative) H 03/13/23 19:19 Urine Ketones Negative (Negative) 03/13/23 19:19 Urine Blood Negative (Negative) 03/13/23 19:19 Urine Nitrite Negative (Negative) 03/13/23 19:19 Urine Bilirubin Negative (Negative) 03/13/23 19:19 Urine Urobilinogen Negative (Negative) 03/13/23 19:19 Ur Leukocyte Esterase Negative (Negative) 03/13/23 19:19 Urine WBC (Auto) 1-5 /hpf (0-5) 03/13/23 19:19 Urine RBC (Auto) 0-4 /hpf (0-4) 03/13/23 19:19 U Hyaline Cast (Auto) 1-5 /lpf (0-5) 03/13/23 19:19 U Epithel Cells (Auto) 5-10 /lpf (0-5) H 03/13/23 19:19 Urine Bacteria (Auto) Negative (Negative) 03/13/23 19:19 SARS-CoV-2, RNA, NAAT NEGATIVE (NEGATIVE) 03/13/23 19:11 Impressions Chest X-Ray 03/13/23 19:00 SINGLE VIEW CHEST CLINICAL HISTORY: Lower extremity edema FINDINGS: An AP, portable, upright chest radiograph is compared to study dated 12/01/2022. The examination is degraded by portable technique and apical lordotic positioning. The cardiomediastinal silhouette is top normal for ejection. Emphysema and chronic interstitial thickening is similar to previous. There is mild bibasilar scarring/atelectasis. No airspace consolidation or large pleural effusion is identified. No pneumothorax is seen. The bony thorax is grossly intact. IMPRESSION: Emphysematous change with no active disease in the chest. ACT 112: Negative or not required by law. Electronically signed by: Tremaine Heller M.D. 03/13/2023 9:39 PM Venous Doppler Study 03/13/23 19:00 ULTRASOUND LEFT LOWER EXTREMITY VENOUS CLINICAL HISTORY: Left leg swelling. COMPARISON STUDY: No priors. TECHNIQUE: Real-time, grayscale, and color Doppler sonography of the deep veins of the left lower extremity was performed from the inguinal crease to the calf. Compression and augmentation were utilized. FINDINGS: There is no sonographic evidence of deep venous thrombosis identified in the left lower extremity. The common femoral, superficial femoral, and popliteal veins are patent and normally compressible. The greater saphenous vein and the profunda femoris vein at the junction with the common femoral vein are clear. The visualized calf veins are patent. Calcifications are seen within a superficial vein in the popliteal fossa. IMPRESSION: 1. There is no sonographic evidence of acute deep venous thrombosis identified in the left lower extremity. 2. Calcifications are seen within a superficial vein in the popliteal fossa, possibly representing a small amount of chronic thrombus. ACT 112: Negative or not required by law. Electronically signed by: Tremaine Heller M.D. 03/13/2023 9:01 PM ECG Additional Comments: ECG normal sinus rhythm rate 90 no significant change was found Code Status & VTE Plan VTE Prophylaxis Plan VTE Prophylaxis will be ordered: Yes
[2023-03-14] MEDS ORDERED: DEXTROSE 50% 50 ML SYRINGE IV PRN (02:29)
[2023-03-14] MEDS ORDERED: GLUCOSE 10 TAB/TUBE PO PRN (02:29)
[2023-03-14] MEDS ORDERED: CYCLOBENZAPRINE HCL 10 MG TAB PO PRN (02:29)
[2023-03-14] MEDS ORDERED: GLUCAGON FOR INJ 1 MG VIAL SQ PRN (02:29)
[2023-03-14] MEDS ORDERED: GLUCOSE 40% GEL 15 GM TUBE PO PRN (02:29)
[2023-03-14] MEDS ORDERED: oxyCODONE HCL IR 5 MG TAB (IMMEDIATE RELEASE) PO PRN (02:29)
[2023-03-14] MEDS ORDERED: CARBOHYDRATES FOR HYPOGLYCEMIA PO PRN (02:29)
[2023-03-14] MEDS ORDERED: POLYETHYLENE (MIRALAX) 17 GM PACK PO PRN (02:29)
[2023-03-14] MEDS ORDERED: ALBUTEROL HFA 8 GM INHALER INH PRN (02:29)
[2023-03-14] MEDS: CLINDAMYCIN/D5W 600 MG/50 ML BAG IV SCH ×3 (03:20→18:44)
[2023-03-14] MEDS: AZTREONAM 2,000 MG in DEXTROSE 5% 100 ML IV SCH ×3 (04:11→20:18)
--- NOTE | 2023-03-14 05:47 | Surgery Consultation ---
This case was discussed with the surgical PA. I agree with the plan. R/U wound care recs. Date of Consultation March 14, 2023 Assessment & Plan (1) Wound of gluteal cleft: Patient has been admitted on the hospitalist service. We recommend proceeding as follows: Continue offloading as able of patient's wound Recommend consulting wound care nurse to see if wound VAC should be reapplied Continue antibiotics in form of aztreonam and clindamycin Continue local wound care for the present time History of Present Illness Reason for Consultation: Gluteal wound Attending Physician: Aaron López MD History of Present Illness This is a 52-year-old male who currently lives at home but presented to the emergency department as he has a gluteal wound and he feels that he needs to be placed in a nursing facility for further care as he is unable to care for himself. Patient was previously hospitalized for gluteal abscess in had an incision and drainage of this abscess on in February 2023. Patient notes that he did have a wound VAC in place and was treated with antibiotics. His wound VAC has since been discontinued as the patient was having difficulty managing this modality at home. The patient has been following with the wound care center and was most recently seen on 03/13/2023. During this visit the patient's wound was debrided at bedside. Consideration has been given to reapplying the wound VAC if patient can adequately take care of this modality. He currently denies any pain of his gluteal wound. He denies any fevers, shakes, or chills. He denies any nausea or vomiting. Since arrival to the hospital the patient has had labs and imaging which independent reviewed. Chest x-ray showed no evidence of pneumonia. Patient had a left lower extremity venous ultrasound that showed no evidence of DVT. Labs include a CBC her white blood cell count was within normal range. Hemoglobin and hematocrit were 13.1 and 40.3. Platelet count was 4 and 54,000. Coagulation studies were normal. Chemistry profile showed sodium is 131. Potassium, BUN, and creatinine were all normal. At the time of my interview the patient was resting comfortably in bed and he was in no distress. Allergies Allergy/AdvReac Type Severity Reaction Status Date / Time bee venom protein (honey bee) Allergy Severe SWELLING Verified 03/13/23 20:41 liraglutide [From Victoza] Allergy Severe Difficulty Verified 03/13/23 20:41 Breathing Penicillins Allergy Severe THROAT Verified 03/13/23 20:41 CLOSING Sulfa (Sulfonamide AdvReac Intermediate Gastrointestinal Verified 03/13/23 20:41 Antibiotics) Upset Home Medications Medication Instructions Recorded Confirmed Type acetaminophen 650 mg 650 mg PO BID PRN Pain 12/03/22 03/13/23 History tablet,extended release albuterol sulfate 90 mcg/actuation 2 puff inhalation QID PRN 12/03/22 03/13/23 History aerosol inhaler Shortness Of Breath aspirin 81 mg chewable tablet 81 mg PO DAILY 12/03/22 03/13/23 History atorvastatin 40 mg tablet 40 mg PO DAILY 12/03/22 03/13/23 History cyanocobalamin (vitamin B-12) 1,000 mcg PO DAILY 12/03/22 03/13/23 History 1,000 mcg tablet cyclobenzaprine 10 mg tablet 10 mg PO HS PRN .restless leg 12/03/22 03/13/23 History epinephrine 0.3 mg/0.3 mL 0.3 mg IM DIRECTED PRN severe 12/03/22 03/13/23 History injection, auto-injector reaction fluoxetine 40 mg capsule 40 mg PO DAILY 12/03/22 03/13/23 History gabapentin 400 mg capsule 400 mg PO TID 12/03/22 03/13/23 History glycopyrrolate 9 mcg-formoterol 2 puff inhalation AMHS 12/03/22 03/13/23 History 4.8 mcg HFA aerosol inhaler (Bevespi Aerosphere) ibuprofen 800 mg tablet 800 mg PO TID PRN Pain 12/03/22 03/13/23 History insulin glargine 100 unit/mL (3 45 unit subcut QPM 12/03/22 03/13/23 History mL) subcutaneous pen (Lantus Solostar U-100 Insulin) insulin lispro 100 unit/mL 14 - 50 unit subcut TID 12/03/22 03/13/23 History subcutaneous pen (Admelog SoloStar U-) lamotrigine 200 mg tablet 200 mg PO AMHS 12/03/22 03/13/23 History loratadine 10 mg tablet 10 mg PO DAILY 12/03/22 03/13/23 History losartan 50 mg tablet 50 mg PO QAM 12/03/22 03/13/23 History magnesium oxide 500 mg capsule 500 mg PO DAILY 12/03/22 03/13/23 History metformin 500 mg tablet 1,000 mg PO QAM 12/03/22 03/13/23 History metoclopramide HCl 10 mg tablet 10 mg PO TID 12/03/22 03/13/23 History metoclopramide HCl 10 mg tablet 20 mg PO HS 12/03/22 03/13/23 History pantoprazole 40 mg tablet,delayed 40 mg PO QAM 12/03/22 03/13/23 History release oxycodone 5 mg tablet 5 mg PO Q6H PRN pain #10 tabs 02/14/23 03/13/23 Rx hydroxyzine HCl 25 mg tablet 25 mg PO TID 02/27/23 03/13/23 History quetiapine 25 mg tablet 25 mg PO TID PRN Anxiety 02/27/23 03/13/23 History ropinirole 2 mg tablet 4 mg PO HS 02/27/23 03/13/23 History Patient History Medical History Abscess and cellulitis of gluteal region Depression GERD (gastroesophageal reflux disease) HLD (hyperlipidemia) HTN (hypertension) Insulin dependent type 2 diabetes mellitus Surgical History History of incision and drainage (02/11/23) Incision and Drainage Gluteal Absces with excision of Pilonidal Cyst Darrion Gorman, DO, FACS Hx of removal of testicle No pertinent past surgical history Status post vasectomy Family History Other COPD (chronic obstructive pulmonary disease) Diabetes Social History Smoking Status: Current every day smoker Tobacco Type: Cigarettes Cigarettes Per Day: 1 pack per day; Second Hand Exposure: No; Do You Dip or Chew Tobacco: No; Hx Alcohol Use: Yes Alcohol type: hard liquor Alcohol Intake Frequency Comment: Vodka or rum 1/2 gallon monthly for physical pain, and "likes the buzz" Hx Substance Use: No Preferred Language: Sinhala Communication Ability: Effective Visual Impairment: Limited Hearing Ability: Normal 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 Brother is also currently staying there. current occupational status: disabled How many Children do You have: 3 How many Children do You have Comment: Children are not local. Lives with aunt who is unable to assist with care. Feels Safe at Home: Yes Safety Concerns: Feels Safe At This Time Diet: diabetic Diet Comment: "Junk food here and there" during the past year weight has: remained stable Do you think of yourself as: straight/heterosexual Assistive Devices: None Review of Systems Constitutional: no fever and no chills Ear, Nose, Mouth, Throat: no hearing loss Respiratory: no cough and no dyspnea Cardiovascular: no chest pain Gastrointestinal: no abdominal pain, no nausea and no vomiting Genitourinary: no dysuria Musculoskeletal: no back pain Integumentary: no rash Neurologic: no localized weakness Physical Exam Physical Exam: Gluteal wound noted measuring approximately 5 cm x 2 cm. The wound base appears clean. There is no purulence noted. There is no crepitus in the soft tissue. Constitutional: + disheveled; no acute distress Eyes: no conjunctival abnormality ENMT: Ears: no hearing impairment and no external ear abnormality Neck: trachea midline Respiratory: normal respiratory effort; no respiratory distress and no labored breathing Cardiovascular: Rate/Rhythm: regular rate and regular rhythm Gastrointestinal (Abdomen): Soft, nontender Musculoskeletal: No calf tenderness Skin: no rashes Neurologic: moves all extremities Results & Data Vital Signs (Past 12 Hours) Vital Signs Temp Pulse Pulse Resp BP BP Pulse Ox 03/14/23 03:00 03/14/23 02:29 36.8 C 93 H 20 183/91 H 93 03/14/23 02:22 16 98 03/13/23 22:00 83 17 180/95 H 97 03/13/23 20:59 86 18 185/103 H 97 03/13/23 19:03 96 03/13/23 18:59 03/13/23 18:41 37.3 C 98 H 18 156/96 H 93 O2 Del Method 03/14/23 03:00 Room Air 03/14/23 02:29 Room Air 03/14/23 02:22 Room Air 03/13/23 22:00 Room Air 03/13/23 20:59 03/13/23 19:03 Room Air 03/13/23 18:59 Room Air 03/13/23 18:41 Room Air PG Care Time/CCT Total # of Minutes Spent Total Time Spent with Patient: Total time spent is greater than 50% in coordination of care (as documented) at patient's floor/unit and/or counseling patient: Coding Level of Care Code 43753 IN/OBS CONSULT LVL 5,80M Diagnoses Wound of gluteal cleft S31.809A
[2023-03-14] MEDS: NICOTINE 21 MG/24 HR TDSY TD SCH (06:26)
[2023-03-14 07:35] LABS: Hematocrit (blood only) 37.1 % (42.0-52.0); Hemoglobin 12.5 g/dl (14.0-18.0); Mean Corpuscular Hemoglobin 25.7 pg (25.0-34.0); Mean Corpuscular Hgb Conc 33.7 g/dL (32.0-36.0); Mean Corpuscular Volume 76.3 fL (80.0-100.0); Mean Platelet Volume 8.5 fL (9.4-12.4); Platelet Count 415 K/uL (130-400); RDW Coefficient of Variation 14.6 % (11.5-14.5); RDW Standard Deviation 40.3 fL (36.4-46.3); Red Blood Count 4.86 M/uL (4.70-6.10); White Blood Count 8.12 K/ul (4.8-10.8)
[2023-03-14 07:56] LABS: BUN Creatinine Ratio 13.1 (10-20); Calcium 8.5 mg/dl (8.6-10.3); Creatinine Clr Calc Pharmacy 94.1 ml/min; Est GFR (African American) 101.1 ml/min; Est GFR (Non-African American) 87.2 ml/min; Magnesium 1.6 mg/dl (1.7-2.4)
[2023-03-14] MEDS: UMECLIDINIUM/VILANTEROL 62.5/25MCG 7 PUFFS/INHALER INH SCH (08:34)
[2023-03-14] MEDS: ADVANCED PROBIOTIC 1250 MG CAPSULE PO SCH ×2 (08:35→20:12)
[2023-03-14] MEDS: CYANOCOBALAMIN (B-12) 500 MCG TABLET PO SCH (08:35)
[2023-03-14] MEDS: METOCLOPRAMIDE HCL 10 MG TABLET PO SCH ×4 (08:35→20:14)
[2023-03-14] MEDS: ASPIRIN 81 MG CHEW PO SCH (08:35)
[2023-03-14] MEDS: MAGNESIUM OXIDE 400 MG TAB PO SCH (08:35)
[2023-03-14] MEDS: lamoTRIgine 100 MG TAB PO SCH ×2 (08:36→20:13)
[2023-03-14] MEDS: PANTOprazole 40 MG TAB PO SCH (08:36)
[2023-03-14] MEDS: ATORVASTATIN 40 MG TAB PO SCH (08:36)
[2023-03-14] MEDS: hydrOXYzine HCl 25 MG TAB PO SCH ×3 (08:36→20:11)
[2023-03-14] MEDS: FLUoxetine HCL 20 MG CAP PO SCH (08:36)
[2023-03-14] MEDS: GABAPENTIN 400 MG CAP PO SCH ×3 (08:36→20:11)
[2023-03-14] MEDS: LORATADINE 10 MG TAB PO SCH (08:36)
[2023-03-14] MEDS: INSULIN ASPART PER UNIT CHARGE SC SCH ×4 (08:39→21:40)
[2023-03-14] MEDS: ENOXAPARIN INJ 40 MG/0.4 ML SYR SQ SCH (08:45)
[2023-03-14] MEDS ORDERED: LOSARTAN POTASSIUM 50 MG TAB PO SCH (09:00)
[2023-03-14 09:09] LABS: Estimated Average Glucose 163 mg/dl; Hemoglobin A1C 7.3 % (4.5-5.6)
[2023-03-14 09:30] LABS: Basophils # (auto) 0.14 K/uL (0.00-0.20); Basophils % (auto) 1.7 %; Eosinophils # (auto) 0.63 K/uL (0.00-0.50); Eosinophils % (auto) 7.8 %; Immature Granulocytes # (auto) 0.03 K/uL (0.01-0.20); Immature Granulocytes % (auto) 0.4 %; Lymphocytes # (auto) 2.66 K/uL (1.20-3.40); Lymphocytes % (auto) 32.8 %; Monocytes # (auto) 0.58 K/uL (0.11-0.59); Monocytes % (auto) 7.1 %; Neutrophils # (auto) 4.08 K/uL (1.40-6.50); Neutrophils % (auto) 50.2 %
[2023-03-14] MEDS: ACETAMINOPHEN 325 MG TAB PO PRN ×2 (09:51→16:39)
[2023-03-14] MEDS: QUEtiapine FUMARATE 25 MG TABLET PO PRN (11:19)
[2023-03-14] MEDS: oxyCODONE HCL IR 5 MG TAB (IMMEDIATE RELEASE) PO PRN (12:39)
[2023-03-14] MEDS ORDERED: NICOTINE POLACRILEX 2 MG GUM MT PRN (14:25)
--- NOTE | 2023-03-14 14:28 | Hospitalist Progress Note ---
Date of Service March 14, 2023 Assessment & Plan (1) Surgical wound, non healing: Plan: 52-year-old male past medical history significant for type 2 diabetes, hyperlipidemia, asthma, hypertension, history of CVA, GERD, bipolar 1 disorder, history of alcohol dependence in remission, cannabis dependence in remission, adjustment disorder with depression, history of diverticulitis, PTSD, who lives at home with his aunt comes because of gluteal wound and request for placement. Gluteal wound Abscess and cellulitis of gluteal region status post I&D [id number] Patient was recently admitted for abscess and cellulitis in gluteal region; underwent I&D on February 11, 2023. Was following up on wound care. Presents home with drainage from the wound. Surgery evaluated the patient; no further procedure required. We will continue on antibiotics for now. ESR and CRP sent. Unable to care for self Lives with his aunt who is 75 years old Says he could not take care of himself and request placement He says he requires 7 days care for his wound PT OT ordered History of depression Bipolar disorder PTSD Continues home medications Hypertension Increase losartan to 50 mg twice daily. Continue to monitor. Diabetes Continue home Lantus Hold p.o. medications Insulin sliding scale Monitor blood glucose. DVT prophylaxis Lovenox for now Please note the above document was generated using voice recognition software. It may contain grammatical, syntax or spelling errors. Any formal questions or concerns about the content, text or information contained within the body of this dictation should be directly addressed to the provider for clarification (2) Unable to care for self: Admission and Anticipated Discharge Date Admission Date: March 14, 2023 Subjective Patient seen and examined at bedside. His comfortably sitting up on the bed; not in distress. Afebrile, normotensive and saturating well on room air. Review of Systems Review of Systems: All systems reviewed & are unremarkable except as noted in Subjective Physical Exam Physical Exam: Constitutional: WD/WN, vitals as above, NAD, sitting up in bed, pleasant, conversing easily Respiratory: normal respiratory effort, lungs clear to auscultation, no wheeze, rales, rhonchi. Normal insp/exp effort, no accessory muscle use Cardiovascular: RRR, no murmur, no edema Vessels: no JVD or carotid bruit Chest: normal inspection of chest Abdomen: normal bowel sounds, soft, nontender, no hepatosplenomegaly Musculoskeletal: no cyanosis or clubbing, extremities motor strength 5/5. Wound in sacral region; dressing in place. Clean dry and intact. Skin: no rashes, warm and dry normal turgor Neurologic: PERRL, EOMI, accommodation nl, no face palsy, no dysarthria CN's II- XI intact bilaterally and moves all extremities Psychiatric: A+Ox3, euthymic affect Results & Data Results & Data Vital Signs (Past 12 Hours) Vital Signs Temp Pulse Resp BP Pulse Ox O2 Del Method 03/14/23 07:30 Room Air 03/14/23 08:03 36.8 C 94 H 16 176/99 H 94 Room Air 03/14/23 03:00 Room Air 03/14/23 02:29 36.8 C 93 H 20 183/91 H 93 Room Air Laboratory Results Laboratory Results WBC 8.12 K/ul (4.8-10.8) 03/14/23 07:08 RBC 4.86 M/uL (4.70-6.10) 03/14/23 07:08 Hgb 12.5 g/dl (14.0-18.0) L 03/14/23 07:08 Hct 37.1 % (42.0-52.0) L 03/14/23 07:08 MCV 76.3 fL (80.0-100.0) L 03/14/23 07:08 MCH 25.7 pg (25.0-34.0) 03/14/23 07:08 MCHC 33.7 g/dL (32.0-36.0) 03/14/23 07:08 RDW Std Deviation 40.3 fL (36.4-46.3) 03/14/23 07:08 RDW Coeff of Estefania 14.6 % (11.5-14.5) H 03/14/23 07:08 Plt Count 415 K/uL (130-400) H 03/14/23 07:08 MPV 8.5 fL (9.4-12.4) L 03/14/23 07:08 Immature Gran % (Auto) 0.4 % 03/14/23 07:08 Neut % (Auto) 50.2 % 03/14/23 07:08 Lymph % (Auto) 32.8 % 03/14/23 07:08 [place] % (Auto) 7.1 % 03/14/23 07:08 Eos % (Auto) 7.8 % 03/14/23 07:08 Baso % (Auto) 1.7 % 03/14/23 07:08 Neut # (Auto) 4.08 K/uL (1.40-6.50) 03/14/23 07:08 Lymph # (Auto) 2.66 K/uL (1.20-3.40) 03/14/23 07:08 [place] # (Auto) 0.58 K/uL (0.11-0.59) 03/14/23 07:08 Eos # (Auto) 0.63 K/uL (0.00-0.50) H 03/14/23 07:08 Baso # (Auto) 0.14 K/uL (0.00-0.20) 03/14/23 07:08 Immature Gran # (Auto) 0.03 K/uL (0.01-0.20) 03/14/23 07:08 PT 9.9 Seconds (9.0-12.0) 03/13/23 19:14 INR 0.9 (0.9-1.1) 03/13/23 19:14 Sodium 134 mmol/L (136-145) L 03/14/23 07:08 Potassium 4.0 mmol/L (3.5-5.1) 03/14/23 07:08 Chloride 104 mmol/L (98-107) 03/14/23 07:08 Carbon Dioxide 26 mmol/L (21-32) 03/14/23 07:08 Anion Gap 4 (3-11) 03/14/23 07:08 BUN 13 mg/dl (6-23) 03/14/23 07:08 Creatinine 0.99 mg/dl (0.6-1.4) 03/14/23 07:08 Est Cr Clr Drug Dosing 94.1 ml/min 03/14/23 07:08 Est GFR ( Amer) 101.1 ml/min 03/14/23 07:08 Est GFR (Non-Af Amer) 87.2 ml/min 03/14/23 07:08 BUN/Creatinine Ratio 13.1 (10-20) 03/14/23 07:08 Glucose 188 mg/dl (70-99(Fasting)) H 03/14/23 07:08 POC Glucose 191 mg/dl (70-99) H 03/14/23 11:38 Estimat Average Glucose 163 mg/dl 03/14/23 07:08 Hemoglobin A1c 7.3 % (4.5-5.6) H 03/14/23 07:08 Calcium 8.5 mg/dl (8.6-10.3) L 03/14/23 07:08 Magnesium 1.6 mg/dl (1.7-2.4) L 03/14/23 07:08 Total Bilirubin 0.2 mg/dl (0.2-1.0) 03/13/23 19:14 AST 15 U/L (13-39) 03/13/23 19:14 ALT 8 U/L (7-52) 03/13/23 19:14 Alkaline Phosphatase 127 U/L (34-104) H 03/13/23 19:14 Troponin I High Sens 6.6 pg/ml (0-20) 03/13/23 19:14 B-Natriuretic Peptide 53 pg/ml (0-100) 03/13/23 19:14 Total Protein 7.0 gm/dl (6.0-8.3) 03/13/23 19:14 Albumin 3.0 gm/dl (3.4-5.0) L 03/13/23 19:14 Globulin 4.0 gm/dl (2.5-4.0) 03/13/23 19:14 Albumin/Globulin Ratio 0.8 (0.9-2) L 03/13/23 19:14 TSH 0.801 uIu/ml (0.300-4.500) 03/13/23 19:14 Urine Color Yellow 03/13/23 19:19 Urine Appearance Clear (Clear) 03/13/23 19:19 Urine pH 6.5 (4.5-7.5) 03/13/23 19:19 Ur Specific [place] 1.019 (1.000-1.030) 03/13/23 19:19 Urine Protein 3+ (Negative) H 03/13/23 19:19 Urine Glucose (UA) Trace (Negative) H 03/13/23 19:19 Urine Ketones Negative (Negative) 03/13/23 19:19 Urine Blood Negative (Negative) 03/13/23 19:19 Urine Nitrite Negative (Negative) 03/13/23 19:19 Urine Bilirubin Negative (Negative) 03/13/23 19:19 Urine Urobilinogen Negative (Negative) 03/13/23 19:19 Ur Leukocyte Esterase Negative (Negative) 03/13/23 19:19 Urine WBC (Auto) 1-5 /hpf (0-5) 03/13/23 19:19 Urine RBC (Auto) 0-4 /hpf (0-4) 03/13/23 19:19 U Hyaline Cast (Auto) 1-5 /lpf (0-5) 03/13/23 19:19 U Epithel Cells (Auto) 5-10 /lpf (0-5) H 03/13/23 19:19 Urine Bacteria (Auto) Negative (Negative) 03/13/23 19:19 SARS-CoV-2, RNA, NAAT NEGATIVE (NEGATIVE) 03/13/23 19:11 Impressions Chest X-Ray 03/13/23 19:00 SINGLE VIEW CHEST CLINICAL HISTORY: Lower extremity edema FINDINGS: An AP, portable, upright chest radiograph is compared to study dated 12/01/2022. The examination is degraded by portable technique and apical lordotic positioning. The cardiomediastinal silhouette is top normal for ejection. Emphysema and chronic interstitial thickening is similar to previous. There is mild bibasilar scarring/atelectasis. No airspace consolidation or large pleural effusion is identified. No pneumothorax is seen. The bony thorax is grossly intact. IMPRESSION: Emphysematous change with no active disease in the chest. ACT 112: Negative or not required by law. Electronically signed by: Tremaine Heller M.D. 03/13/2023 9:39 PM Venous Doppler Study 03/13/23 19:00 ULTRASOUND LEFT LOWER EXTREMITY VENOUS CLINICAL HISTORY: Left leg swelling. COMPARISON STUDY: No priors. TECHNIQUE: Real-time, grayscale, and color Doppler sonography of the deep veins of the left lower extremity was performed from the inguinal crease to the calf. Compression and augmentation were utilized. FINDINGS: There is no sonographic evidence of deep venous thrombosis identified in the left lower extremity. The common femoral, superficial femoral, and popliteal veins are patent and normally compressible. The greater saphenous vein and the profunda femoris vein at the junction with the common femoral vein are clear. The visualized calf veins are patent. Calcifications are seen within a superficial vein in the popliteal fossa. IMPRESSION: 1. There is no sonographic evidence of acute deep venous thrombosis identified in the left lower extremity. 2. Calcifications are seen within a superficial vein in the popliteal fossa, possibly representing a small amount of chronic thrombus. ACT 112: Negative or not required by law. Electronically signed by: Tremaine Heller M.D. 03/13/2023 9:01 PM
[2023-03-14] MEDS: LOSARTAN POTASSIUM 50 MG TAB PO SCH (20:14)
[2023-03-14] MEDS: rOPINIRole HCL 2 MG TABLET PO SCH (20:15)
[2023-03-14] MEDS: LANTUS PER UNIT CHARGE SQ SCH (21:41)
[2023-03-15] MEDS: CLINDAMYCIN/D5W 600 MG/50 ML BAG IV SCH ×2 (02:49→11:33)
[2023-03-15] MEDS: AZTREONAM 2,000 MG in DEXTROSE 5% 100 ML IV SCH ×2 (04:12→12:38)
[2023-03-15] MEDS: CYANOCOBALAMIN (B-12) 500 MCG TABLET PO SCH (09:00)
[2023-03-15] MEDS: METOCLOPRAMIDE HCL 10 MG TABLET PO SCH ×4 (09:01→20:11)
[2023-03-15] MEDS: LORATADINE 10 MG TAB PO SCH (09:01)
[2023-03-15] MEDS: PANTOprazole 40 MG TAB PO SCH (09:02)
[2023-03-15] MEDS: ASPIRIN 81 MG CHEW PO SCH (09:02)
[2023-03-15] MEDS: NICOTINE 21 MG/24 HR TDSY TD SCH (09:02)
[2023-03-15] MEDS: ATORVASTATIN 40 MG TAB PO SCH (09:02)
[2023-03-15] MEDS: lamoTRIgine 100 MG TAB PO SCH ×2 (09:02→20:14)
[2023-03-15] MEDS: GABAPENTIN 400 MG CAP PO SCH ×3 (09:03→20:12)
[2023-03-15] MEDS: hydrOXYzine HCl 25 MG TAB PO SCH ×3 (09:03→20:15)
[2023-03-15] MEDS: ADVANCED PROBIOTIC 1250 MG CAPSULE PO SCH ×2 (09:03→20:10)
[2023-03-15] MEDS: ENOXAPARIN INJ 40 MG/0.4 ML SYR SQ SCH (09:04)
[2023-03-15] MEDS: MAGNESIUM OXIDE 400 MG TAB PO SCH (09:06)
[2023-03-15] MEDS: FLUoxetine HCL 20 MG CAP PO SCH (09:06)
[2023-03-15] MEDS: UMECLIDINIUM/VILANTEROL 62.5/25MCG 7 PUFFS/INHALER INH SCH (09:10)
[2023-03-15] MEDS: oxyCODONE HCL IR 5 MG TAB (IMMEDIATE RELEASE) PO PRN (09:19)
[2023-03-15] MEDS: INSULIN ASPART PER UNIT CHARGE SC SCH ×4 (09:20→20:32)
[2023-03-15] MEDS: LOSARTAN POTASSIUM 50 MG TAB PO SCH ×2 (11:32→20:13)
--- NOTE | 2023-03-15 11:32 | Surgery Progress Note ---
Date of Service March 15, 2023 Assessment & Plan (1) Wound of gluteal cleft: Plan: Patient awaiting half-way placement to continue the wound care regime recommended by his wound care center. Please contact surgery if any concerns. Admission and Anticipated Discharge Date Admission Date: March 14, 2023 Subjective Patient seen this am. Awaiting half-way placement. Wound care instructions being followed from his wound center. Physical Exam Skin: Silvadene in the wound. There is some mild thin exudate at the wound base. Results & Data Vital Signs (Past 12 Hours) Vital Signs Temp Pulse Resp BP Pulse Ox O2 Del Method 03/15/23 07:50 Room Air 03/15/23 08:02 36.9 C 88 16 168/95 H 94 Room Air PG Care Time/CCT Total # of Minutes Spent Total Time Spent with Patient: Total time spent is greater than 50% in coordination of care (as documented) at patient's floor/unit and/or counseling patient: Coding Level of Care Code 88516 SUB INP/OBS CARE 1/25MIN Diagnoses Wound of gluteal cleft S31.809A
[2023-03-15] MEDS: ACETAMINOPHEN 325 MG TAB PO PRN (12:20)
--- NOTE | 2023-03-15 12:25 | Hospitalist Progress Note ---
Date of Service March 15, 2023 Assessment & Plan (1) Surgical wound, non healing: Plan: 52-year-old male past medical history significant for type 2 diabetes, hyperlipidemia, asthma, hypertension, history of CVA, GERD, bipolar 1 disorder, history of alcohol dependence in remission, cannabis dependence in remission, adjustment disorder with depression, history of diverticulitis, PTSD, who lives at home with his aunt comes because of gluteal wound and request for placement. Gluteal wound Abscess and cellulitis of gluteal region status post I&D [id number] Patient was recently admitted for abscess and cellulitis in gluteal region; underwent I&D on February 11, 2023. Was following up on wound care. Presents home with drainage from the wound. Surgery evaluated the patient; no further procedure required. We will hold antibiotic. Patient had completed course of antibiotic last admission. Continue wound care. Unable to care for self Lives with his aunt who is 75 years old Says he could not take care of himself and request placement He says he requires 7 days care for his wound PT OT ordered History of depression Bipolar disorder PTSD Continues home medications Hypertension Increase losartan to 100 mg twice daily. Continue to monitor. Diabetes Continue home Lantus Hold p.o. medications Insulin sliding scale Monitor blood glucose. DVT prophylaxis Lovenox for now Dispopatient awaiting PT OT evaluation. Patient unable to take care of himself; requesting placement to rehab. Please note the above document was generated using voice recognition software. It may contain grammatical, syntax or spelling errors. Any formal questions or concerns about the content, text or information contained within the body of this dictation should be directly addressed to the provider for clarification (2) Unable to care for self: Admission and Anticipated Discharge Date Admission Date: March 14, 2023 Subjective Patient seen and examined at bedside. He is lying in the bed comfortably; denies fever, chills, chest pain shortness of breath or abdominal pain. Normal bowel and bladder habits. Review of Systems Review of Systems: All systems reviewed & are unremarkable except as noted in Subjective Physical Exam Physical Exam: Constitutional: WD/WN, vitals as above, NAD, sitting up in bed, pleasant, conversing easily Respiratory: normal respiratory effort, lungs clear to auscultation, no wheeze, rales, rhonchi. Normal insp/exp effort, no accessory muscle use Cardiovascular: RRR, no murmur, no edema Vessels: no JVD or carotid bruit Chest: normal inspection of chest Abdomen: normal bowel sounds, soft, nontender, no hepatosplenomegaly Musculoskeletal: no cyanosis or clubbing, extremities motor strength 5/5. Wound in sacral region; dressing in place. Clean dry and intact. Skin: no rashes, warm and dry normal turgor Neurologic: PERRL, EOMI, accommodation nl, no face palsy, no dysarthria CN's II- XI intact bilaterally and moves all extremities Psychiatric: A+Ox3, euthymic affect Results & Data Results & Data Vital Signs (Past 12 Hours) Vital Signs Temp Pulse Resp BP Pulse Ox O2 Del Method 03/15/23 07:50 Room Air 03/15/23 08:02 36.9 C 88 16 168/95 H 94 Room Air Laboratory Results Laboratory Results WBC 8.12 K/ul (4.8-10.8) 03/14/23 07:08 RBC 4.86 M/uL (4.70-6.10) 03/14/23 07:08 Hgb 12.5 g/dl (14.0-18.0) L 03/14/23 07:08 Hct 37.1 % (42.0-52.0) L 03/14/23 07:08 MCV 76.3 fL (80.0-100.0) L 03/14/23 07:08 MCH 25.7 pg (25.0-34.0) 03/14/23 07:08 MCHC 33.7 g/dL (32.0-36.0) 03/14/23 07:08 RDW Std Deviation 40.3 fL (36.4-46.3) 03/14/23 07:08 RDW Coeff of Estefania 14.6 % (11.5-14.5) H 03/14/23 07:08 Plt Count 415 K/uL (130-400) H 03/14/23 07:08 MPV 8.5 fL (9.4-12.4) L 03/14/23 07:08 Immature Gran % (Auto) 0.4 % 03/14/23 07:08 Neut % (Auto) 50.2 % 03/14/23 07:08 Lymph % (Auto) 32.8 % 03/14/23 07:08 [place] % (Auto) 7.1 % 03/14/23 07:08 Eos % (Auto) 7.8 % 03/14/23 07:08 Baso % (Auto) 1.7 % 03/14/23 07:08 Neut # (Auto) 4.08 K/uL (1.40-6.50) 03/14/23 07:08 Lymph # (Auto) 2.66 K/uL (1.20-3.40) 03/14/23 07:08 [place] # (Auto) 0.58 K/uL (0.11-0.59) 03/14/23 07:08 Eos # (Auto) 0.63 K/uL (0.00-0.50) H 03/14/23 07:08 Baso # (Auto) 0.14 K/uL (0.00-0.20) 03/14/23 07:08 Immature Gran # (Auto) 0.03 K/uL (0.01-0.20) 03/14/23 07:08 ESR 77 mm/hr (0-20) H 03/15/23 08:01 PT 9.9 Seconds (9.0-12.0) 03/13/23 19:14 INR 0.9 (0.9-1.1) 03/13/23 19:14 Sodium 134 mmol/L (136-145) L 03/14/23 07:08 Potassium 4.0 mmol/L (3.5-5.1) 03/14/23 07:08 Chloride 104 mmol/L (98-107) 03/14/23 07:08 Carbon Dioxide 26 mmol/L (21-32) 03/14/23 07:08 Anion Gap 4 (3-11) 03/14/23 07:08 BUN 13 mg/dl (6-23) 03/14/23 07:08 Creatinine 0.99 mg/dl (0.6-1.4) 03/14/23 07:08 Est Cr Clr Drug Dosing 94.1 ml/min 03/14/23 07:08 Est GFR ( Amer) 101.1 ml/min 03/14/23 07:08 Est GFR (Non-Af Amer) 87.2 ml/min 03/14/23 07:08 BUN/Creatinine Ratio 13.1 (10-20) 03/14/23 07:08 Glucose 188 mg/dl (70-99(Fasting)) H 03/14/23 07:08 POC Glucose 253 mg/dl (70-99) H 03/15/23 11:32 Estimat Average Glucose 163 mg/dl 03/14/23 07:08 Hemoglobin A1c 7.3 % (4.5-5.6) H 03/14/23 07:08 Calcium 8.5 mg/dl (8.6-10.3) L 03/14/23 07:08 Magnesium 1.6 mg/dl (1.7-2.4) L 03/14/23 07:08 Total Bilirubin 0.2 mg/dl (0.2-1.0) 03/13/23 19:14 AST 15 U/L (13-39) 03/13/23 19:14 ALT 8 U/L (7-52) 03/13/23 19:14 Alkaline Phosphatase 127 U/L (34-104) H 03/13/23 19:14 Troponin I High Sens 6.6 pg/ml (0-20) 03/13/23 19:14 C-Reactive Protein 1.88 mg/dl (0-0.5) H 03/15/23 08:01 B-Natriuretic Peptide 53 pg/ml (0-100) 03/13/23 19:14 Total Protein 7.0 gm/dl (6.0-8.3) 03/13/23 19:14 Albumin 3.0 gm/dl (3.4-5.0) L 03/13/23 19:14 Globulin 4.0 gm/dl (2.5-4.0) 03/13/23 19:14 Albumin/Globulin Ratio 0.8 (0.9-2) L 03/13/23 19:14 TSH 0.801 uIu/ml (0.300-4.500) 03/13/23 19:14 Urine Color Yellow 03/13/23 19:19 Urine Appearance Clear (Clear) 03/13/23 19:19 Urine pH 6.5 (4.5-7.5) 03/13/23 19:19 Ur Specific [place] 1.019 (1.000-1.030) 03/13/23 19:19 Urine Protein 3+ (Negative) H 03/13/23 19:19 Urine Glucose (UA) Trace (Negative) H 03/13/23 19:19 Urine Ketones Negative (Negative) 03/13/23 19:19 Urine Blood Negative (Negative) 03/13/23 19:19 Urine Nitrite Negative (Negative) 03/13/23 19:19 Urine Bilirubin Negative (Negative) 03/13/23 19:19 Urine Urobilinogen Negative (Negative) 03/13/23 19:19 Ur Leukocyte Esterase Negative (Negative) 03/13/23 19:19 Urine WBC (Auto) 1-5 /hpf (0-5) 03/13/23 19:19 Urine RBC (Auto) 0-4 /hpf (0-4) 03/13/23 19:19 U Hyaline Cast (Auto) 1-5 /lpf (0-5) 03/13/23 19:19 U Epithel Cells (Auto) 5-10 /lpf (0-5) H 03/13/23 19:19 Urine Bacteria (Auto) Negative (Negative) 03/13/23 19:19 SARS-CoV-2, RNA, NAAT NEGATIVE (NEGATIVE) 03/13/23 19:11 Impressions Chest X-Ray 03/13/23 19:00 SINGLE VIEW CHEST CLINICAL HISTORY: Lower extremity edema FINDINGS: An AP, portable, upright chest radiograph is compared to study dated 12/01/2022. The examination is degraded by portable technique and apical lordotic positioning. The cardiomediastinal silhouette is top normal for ejection. Emphysema and chronic interstitial thickening is similar to previous. There is mild bibasilar scarring/atelectasis. No airspace consolidation or large pleural effusion is identified. No pneumothorax is seen. The bony thorax is grossly inta ct. IMPRESSION: Emphysematous change with no active disease in the chest. ACT 112: Negative or not required by law. Electronically signed by: Tremaine Heller M.D. 03/13/2023 9:39 PM Venous Doppler Study 03/13/23 19:00 ULTRASOUND LEFT LOWER EXTREMITY VENOUS CLINICAL HISTORY: Left leg swelling. COMPARISON STUDY: No priors. TECHNIQUE: Real-time, grayscale, and color Doppler sonography of the deep veins of the left lower extremity was performed from the inguinal crease to the calf. Compression and augmentation were utilized. FINDINGS: There is no sonographic evidence of deep venous thrombosis identified in the left lower extremity. The common femoral, superficial femoral, and popliteal veins are patent and normally compressible. The greater saphenous vein and the profunda femoris vein at the junction with the common femoral vein are clear. The visualized calf veins are patent. Calcifications are seen within a superficial vein in the popliteal fossa. IMPRESSION: 1. There is no sonographic evidence of acute deep venous thrombosis identified in the left lower extremity. 2. Calcifications are seen within a superficial vein in the popliteal fossa, possibly representing a small amount of chronic thrombus. ACT 112: Negative or not required by law. Electronically signed by: Tremaine Heller M.D. 03/13/2023 9:01 PM
[2023-03-15] MEDS: rOPINIRole HCL 2 MG TABLET PO SCH (20:11)
[2023-03-15] MEDS: QUEtiapine FUMARATE 25 MG TABLET PO PRN (20:12)
[2023-03-15] MEDS: LANTUS PER UNIT CHARGE SQ SCH (20:32)
[2023-03-16] MEDS: ATORVASTATIN 40 MG TAB PO SCH (08:32)
[2023-03-16] MEDS: LORATADINE 10 MG TAB PO SCH (08:32)
[2023-03-16] MEDS: METOCLOPRAMIDE HCL 10 MG TABLET PO SCH ×4 (08:32→20:13)
[2023-03-16] MEDS: PANTOprazole 40 MG TAB PO SCH (08:32)
[2023-03-16] MEDS: ASPIRIN 81 MG CHEW PO SCH (08:32)
[2023-03-16] MEDS: FLUoxetine HCL 20 MG CAP PO SCH (08:32)
[2023-03-16] MEDS: lamoTRIgine 100 MG TAB PO SCH ×2 (08:32→20:13)
[2023-03-16] MEDS: MAGNESIUM OXIDE 400 MG TAB PO SCH (08:32)
[2023-03-16] MEDS: CYANOCOBALAMIN (B-12) 500 MCG TABLET PO SCH (08:32)
[2023-03-16] MEDS: LOSARTAN POTASSIUM 50 MG TAB PO SCH ×2 (08:33→20:12)
[2023-03-16] MEDS: ADVANCED PROBIOTIC 1250 MG CAPSULE PO SCH ×2 (08:33→20:13)
[2023-03-16] MEDS: hydrOXYzine HCl 25 MG TAB PO SCH ×3 (08:33→20:13)
[2023-03-16] MEDS: GABAPENTIN 400 MG CAP PO SCH ×3 (08:33→20:13)
[2023-03-16] MEDS: NICOTINE 21 MG/24 HR TDSY TD SCH (08:34)
[2023-03-16] MEDS: ENOXAPARIN INJ 40 MG/0.4 ML SYR SQ SCH (08:34)
[2023-03-16] MEDS: UMECLIDINIUM/VILANTEROL 62.5/25MCG 7 PUFFS/INHALER INH SCH (08:34)
[2023-03-16] MEDS: INSULIN ASPART PER UNIT CHARGE SC SCH ×4 (08:36→20:27)
[2023-03-16] MEDS: oxyCODONE HCL IR 5 MG TAB (IMMEDIATE RELEASE) PO PRN (08:40)
[2023-03-16] MEDS: ACETAMINOPHEN 325 MG TAB PO PRN ×3 (12:22→20:12)
--- NOTE | 2023-03-16 13:06 | Hospitalist Progress Note ---
Date of Service March 16, 2023 Assessment & Plan (1) Surgical wound, non healing: Plan: 52-year-old male past medical history significant for type 2 diabetes, hyperlipidemia, asthma, hypertension, history of CVA, GERD, bipolar 1 disorder, history of alcohol dependence in remission, cannabis dependence in remission, adjustment disorder with depression, history of diverticulitis, PTSD, who lives at home with his aunt comes because of gluteal wound and request for placement. Gluteal wound Abscess and cellulitis of gluteal region status post I&D [id number] Patient was recently admitted for abscess and cellulitis in gluteal region; underwent I&D on February 11, 2023. Was following up on wound care. Presents home with drainage from the wound. Surgery evaluated the patient; no further procedure required. We will hold antibiotic. Patient had completed course of antibiotic last admission. Continue wound care. Unable to care for self Lives with his aunt who is 75 years old Says he could not take care of himself and request placement He says he requires 7 days care for his wound PT OT recommends; discharged to SNF for long-term placement. History of depression Bipolar disorder PTSD Continues home medications Hypertension Increase losartan to 100 mg twice daily. Continue to monitor. Diabetes Continue home Lantus Hold p.o. medications Insulin sliding scale Monitor blood glucose. DVT prophylaxis Lovenox for now Dispo Patient unable to take care of himself; requesting placement to rehab. Patient medically stable for transfer. Please note the above document was generated using voice recognition software. It may contain grammatical, syntax or spelling errors. Any formal questions or concerns about the content, text or information contained within the body of this dictation should be directly addressed to the provider for clarification (2) Unable to care for self: Admission and Anticipated Discharge Date Admission Date: March 15, 2023 Subjective Patient seen and examined at bedside. He is lying on the bed comfortably; not in distress. He reports he has been walking with the help of the walker. Denies fever, chills, chest pain, shortness of breath or abdominal pain. Review of Systems Review of Systems: All systems reviewed & are unremarkable except as noted in Subjective Physical Exam Physical Exam: Constitutional: WD/WN, vitals as above, NAD, sitting up in bed, pleasant, conversing easily Respiratory: normal respiratory effort, lungs clear to auscultation, no wheeze, rales, rhonchi. Normal insp/exp effort, no accessory muscle use Cardiovascular: RRR, no murmur, no edema Vessels: no JVD or carotid bruit Chest: normal inspection of chest Abdomen: normal bowel sounds, soft, nontender, no hepatosplenomegaly Musculoskeletal: no cyanosis or clubbing, extremities motor strength 5/5. Wound in sacral region; dressing in place. Clean dry and intact. Skin: no rashes, warm and dry normal turgor Neurologic: PERRL, EOMI, accommodation nl, no face palsy, no dysarthria CN's II- XI intact bilaterally and moves all extremities Psychiatric: A+Ox3, euthymic affect Results & Data Results & Data Vital Signs (Past 12 Hours) Vital Signs Temp Pulse Resp BP Pulse Ox O2 Del Method 03/16/23 08:00 Room Air 03/16/23 07:46 36.8 C 89 18 131/78 95 Room Air Laboratory Results Laboratory Results WBC 8.12 K/ul (4.8-10.8) 03/14/23 07:08 RBC 4.86 M/uL (4.70-6.10) 03/14/23 07:08 Hgb 12.5 g/dl (14.0-18.0) L 03/14/23 07:08 Hct 37.1 % (42.0-52.0) L 03/14/23 07:08 MCV 76.3 fL (80.0-100.0) L 03/14/23 07:08 MCH 25.7 pg (25.0-34.0) 03/14/23 07:08 MCHC 33.7 g/dL (32.0-36.0) 03/14/23 07:08 RDW Std Deviation 40.3 fL (36.4-46.3) 03/14/23 07:08 RDW Coeff of Estefania 14.6 % (11.5-14.5) H 03/14/23 07:08 Plt Count 415 K/uL (130-400) H 03/14/23 07:08 MPV 8.5 fL (9.4-12.4) L 03/14/23 07:08 Immature Gran % (Auto) 0.4 % 03/14/23 07:08 Neut % (Auto) 50.2 % 03/14/23 07:08 Lymph % (Auto) 32.8 % 03/14/23 07:08 [place] % (Auto) 7.1 % 03/14/23 07:08 Eos % (Auto) 7.8 % 03/14/23 07:08 Baso % (Auto) 1.7 % 03/14/23 07:08 Neut # (Auto) 4.08 K/uL (1.40-6.50) 03/14/23 07:08 Lymph # (Auto) 2.66 K/uL (1.20-3.40) 03/14/23 07:08 [place] # (Auto) 0.58 K/uL (0.11-0.59) 03/14/23 07:08 Eos # (Auto) 0.63 K/uL (0.00-0.50) H 03/14/23 07:08 Baso # (Auto) 0.14 K/uL (0.00-0.20) 03/14/23 07:08 Immature Gran # (Auto) 0.03 K/uL (0.01-0.20) 03/14/23 07:08 ESR 77 mm/hr (0-20) H 03/15/23 08:01 PT 9.9 Seconds (9.0-12.0) 03/13/23 19:14 INR 0.9 (0.9-1.1) 03/13/23 19:14 Sodium 134 mmol/L (136-145) L 03/14/23 07:08 Potassium 4.0 mmol/L (3.5-5.1) 03/14/23 07:08 Chloride 104 mmol/L (98-107) 03/14/23 07:08 Carbon Dioxide 26 mmol/L (21-32) 03/14/23 07:08 Anion Gap 4 (3-11) 03/14/23 07:08 BUN 13 mg/dl (6-23) 03/14/23 07:08 Creatinine 0.99 mg/dl (0.6-1.4) 03/14/23 07:08 Est Cr Clr Drug Dosing 94.1 ml/min 03/14/23 07:08 Est GFR ( Amer) 101.1 ml/min 03/14/23 07:08 Est GFR (Non-Af Amer) 87.2 ml/min 03/14/23 07:08 BUN/Creatinine Ratio 13.1 (10-20) 03/14/23 07:08 Glucose 188 mg/dl (70-99(Fasting)) H 03/14/23 07:08 POC Glucose 145 mg/dl (70-99) H 03/16/23 11:43 Estimat Average Glucose 163 mg/dl 03/14/23 07:08 Hemoglobin A1c 7.3 % (4.5-5.6) H 03/14/23 07:08 Calcium 8.5 mg/dl (8.6-10.3) L 03/14/23 07:08 Magnesium 1.6 mg/dl (1.7-2.4) L 03/14/23 07:08 Total Bilirubin 0.2 mg/dl (0.2-1.0) 03/13/23 19:14 AST 15 U/L (13-39) 03/13/23 19:14 ALT 8 U/L (7-52) 03/13/23 19:14 Alkaline Phosphatase 127 U/L (34-104) H 03/13/23 19:14 Troponin I High Sens 6.6 pg/ml (0-20) 03/13/23 19:14 C-Reactive Protein 1.88 mg/dl (0-0.5) H 03/15/23 08:01 B-Natriuretic Peptide 53 pg/ml (0-100) 03/13/23 19:14 Total Protein 7.0 gm/dl (6.0-8.3) 03/13/23 19:14 Albumin 3.0 gm/dl (3.4-5.0) L 03/13/23 19:14 Globulin 4.0 gm/dl (2.5-4.0) 03/13/23 19:14 Albumin/Globulin Ratio 0.8 (0.9-2) L 03/13/23 19:14 TSH 0.801 uIu/ml (0.300-4.500) 03/13/23 19:14 Urine Color Yellow 03/13/23 19:19 Urine Appearance Clear (Clear) 03/13/23 19:19 Urine pH 6.5 (4.5-7.5) 03/13/23 19:19 Ur Specific [place] 1.019 (1.000-1.030) 03/13/23 19:19 Urine Protein 3+ (Negative) H 03/13/23 19:19 Urine Glucose (UA) Trace (Negative) H 03/13/23 19:19 Urine Ketones Negative (Negative) 03/13/23 19:19 Urine Blood Negative (Negative) 03/13/23 19:19 Urine Nitrite Negative (Negative) 03/13/23 19:19 Urine Bilirubin Negative (Negative) 03/13/23 19:19 Urine Urobilinogen Negative (Negative) 03/13/23 19:19 Ur Leukocyte Esterase Negative (Negative) 03/13/23 19:19 Urine WBC (Auto) 1-5 /hpf (0-5) 03/13/23 19:19 Urine RBC (Auto) 0-4 /hpf (0-4) 03/13/23 19:19 U Hyaline Cast (Auto) 1-5 /lpf (0-5) 03/13/23 19:19 U Epithel Cells (Auto) 5-10 /lpf (0-5) H 03/13/23 19:19 Urine Bacteria (Auto) Negative (Negative) 03/13/23 19:19 SARS-CoV-2, RNA, NAAT NEGATIVE (NEGATIVE) 03/13/23 19:11 Impressions Chest X-Ray 03/13/23 19:00 SINGLE VIEW CHEST CLINICAL HISTORY: Lower extremity edema FINDINGS: An AP, portable, upright chest radiograph is compared to study dated 12/01/2022. The examination is degraded by portable technique and apical lordotic positioning. The cardiomediastinal silhouette is top normal for ejection. Emphysema and chronic interstitial thickening is similar to previous. There is mild bibasilar scarring/atelectasis. No airspace consolidation or large pleural effusion is identified. No pneumothorax is seen. The bony thorax is grossly intact. IMPRESSION: Emphysematous change with no active disease in the chest. ACT 112: Negative or not required by law. Electronically signed by: Tremaine Heller M.D. 03/13/2023 9:39 PM Venous Doppler Study 03/13/23 19:00 ULTRASOUND LEFT LOWER EXTREMITY VENOUS CLINICAL HISTORY: Left leg swelling. COMPARISON STUDY: No priors. TECHNIQUE: Real-time, grayscale, and color Doppler sonography of the deep veins of the left lower extremity was performed from the inguinal crease to the calf. Compression and augmentation were utilized. FINDINGS: There is no sonographic evidence of deep venous thrombosis identified in the left lower extremity. The common femoral, superficial femoral, and popliteal veins are patent and normally compressible. The greater saphenous vein and the profunda femoris vein at the junction with the common femoral vein are clear. The visualized calf veins are patent. Calcifications are seen within a superficial vein in the popliteal fossa. IMPRESSION: 1. There is no sonographic evidence of acute deep venous thrombosis identified in the left lower extremity. 2. Calcifications are seen within a superficial vein in the popliteal fossa, possibly representing a small amount of chronic thrombus. ACT 112: Negative or not required by law. Electronically signed by: Tremaine Heller M.D. 03/13/2023 9:01 PM
--- NOTE | 2023-03-16 14:21 | Surgery Progress Note ---
I have seen and examined this patient with the surgical PA. I agree with the plan. Date of Service March 16, 2023 Assessment & Plan (1) Wound of gluteal cleft: Plan: Following up for wound of gluteal cleft he is doing well with no obvious complaints replaced dressing with aquacel and gauze/medipore today wound care consulted, can continue f/u in wound center as outpt upon dispo wound itself is doing okay and there is no indication for any surgical intervention we will sign off, please call with any questions/concerns Admission and Anticipated Discharge Date Admission Date: March 15, 2023 Subjective Patient reports feeling well. No new issues with the wound Physical Exam Physical Exam: awake, no distress Gastrointestinal (Abdomen): buttocks wound clean, intact, small amount of drainage Results & Data Vital Signs (Past 12 Hours) Vital Signs Temp Pulse Resp BP Pulse Ox O2 Del Method 03/16/23 08:00 Room Air 03/16/23 07:46 36.8 C 89 18 131/78 95 Room Air PG Care Time/CCT Total # of Minutes Spent Total Time Spent with Patient: Total time spent is greater than 50% in coordination of care (as documented) at patient's floor/unit and/or counseling patient: Coding Level of Care Code 99958 SUB INP/OBS CARE 125MIN Diagnoses Wound of gluteal cleft S31.809A
--- NOTE | 2023-03-16 20:01 | Electrocardiogram Report ---
Test Reason : Blood Pressure : / mmHG Vent. Rate : 090 BPM Atrial Rate : 090 BPM P-R Int : 120 ms QRS Dur : 098 ms QT Int : 382 ms P-R-T Axes : 024 075 063 degrees QTc Int : 467 ms Normal sinus rhythm Normal ECG When compared with ECG of 03-DEC-2022 20:06, No significant change was found Confirmed by Wilner Medina [id number]) on 03/16/2023 8:00:53 PM Referred By: REFERRED SELF Confirmed By:Wilner Medina
[2023-03-16] MEDS: QUEtiapine FUMARATE 25 MG TABLET PO PRN (20:12)
[2023-03-16] MEDS: rOPINIRole HCL 2 MG TABLET PO SCH (20:12)
[2023-03-16] MEDS: LANTUS PER UNIT CHARGE SQ SCH (20:28)
[2023-03-17 07:19] LABS: Creatinine Clr Calc Pharmacy 91.3 ml/min; Est GFR (African American) 97.5 ml/min; Est GFR (Non-African American) 84.1 ml/min
[2023-03-17] MEDS: oxyCODONE HCL IR 5 MG TAB (IMMEDIATE RELEASE) PO PRN ×2 (08:29→21:10)
[2023-03-17] MEDS: INSULIN ASPART PER UNIT CHARGE SC SCH ×4 (08:29→21:12)
[2023-03-17] MEDS: PANTOprazole 40 MG TAB PO SCH (08:33)
[2023-03-17] MEDS: MAGNESIUM OXIDE 400 MG TAB PO SCH (08:33)
[2023-03-17] MEDS: ASPIRIN 81 MG CHEW PO SCH (08:33)
[2023-03-17] MEDS: LORATADINE 10 MG TAB PO SCH (08:33)
[2023-03-17] MEDS: CYANOCOBALAMIN (B-12) 500 MCG TABLET PO SCH (08:33)
[2023-03-17] MEDS: LOSARTAN POTASSIUM 50 MG TAB PO SCH ×2 (08:34→21:07)
[2023-03-17] MEDS: METOCLOPRAMIDE HCL 10 MG TABLET PO SCH ×4 (08:34→21:08)
[2023-03-17] MEDS: ATORVASTATIN 40 MG TAB PO SCH (08:34)
[2023-03-17] MEDS: FLUoxetine HCL 20 MG CAP PO SCH (08:34)
[2023-03-17] MEDS: GABAPENTIN 400 MG CAP PO SCH (08:35)
[2023-03-17] MEDS: hydrOXYzine HCl 25 MG TAB PO SCH ×3 (08:35→21:07)
[2023-03-17] MEDS: lamoTRIgine 100 MG TAB PO SCH ×2 (08:35→21:08)
[2023-03-17] MEDS: ADVANCED PROBIOTIC 1250 MG CAPSULE PO SCH ×2 (08:35→21:07)
[2023-03-17] MEDS: UMECLIDINIUM/VILANTEROL 62.5/25MCG 7 PUFFS/INHALER INH SCH (08:36)
[2023-03-17] MEDS: ENOXAPARIN INJ 40 MG/0.4 ML SYR SQ SCH (08:36)
[2023-03-17] MEDS: NICOTINE 21 MG/24 HR TDSY TD SCH (09:57)
[2023-03-17] MEDS: IBUPROFEN 200 MG TAB PO PRN (10:26)
--- NOTE | 2023-03-17 11:21 | XRay Report ---
XR hip LT 2V w pelvis HISTORY: 52 years-old Male pain acute pain of the hips without reported trauma COMPARISON: 02/10/2023 TECHNIQUE: AP view of the pelvis with 2 views of the left hip FINDINGS: Mild osteoarthritis of the hips. No acute fracture, dislocation or avascular necrosis. Unremarkable s oft tissues. IMPRESSION: No acute fracture or dislocation. ACT 112: Negative or not required by law. The above report was generated using voice recognition software. It may contain grammatical, syntax o r spelling errors. Electronically signed by: Pricne Underwood M.D. 03/17/2023 11:20 AM
--- NOTE | 2023-03-17 11:45 | Hospitalist Progress Note ---
Date of Service March 17, 2023 Assessment & Plan (1) Surgical wound, non healing: Plan: 52-year-old male past medical history significant for type 2 diabetes, hyperlipidemia, asthma, hypertension, history of CVA, GERD, bipolar 1 disorder, history of alcohol dependence in remission, cannabis dependence in remission, adjustment disorder with depression, history of diverticulitis, PTSD, who lives at home with his aunt comes because of gluteal wound and request for placement. Gluteal wound Abscess and cellulitis of gluteal region status post I&D [id number] Patient was recently admitted for abscess and cellulitis in gluteal region; underwent I&D on February 11, 2023. Was following up on wound care. Presents home with drainage from the wound. Surgery evaluated the patient; no further procedure required. We will hold antibiotic. Patient had completed course of antibiotic last admission. Continue wound care. Unable to care for self Lives with his aunt who is 75 years old Says he could not take care of himself and request placement He says he requires 7 days care for his wound PT OT recommends; discharged to SNF for long-term placement. History of depression Bipolar disorder PTSD Continues home medications Hypertension Increase losartan to 100 mg twice daily. Continue to monitor. Improved blood pressure. Diabetes Continue home Lantus Hold p.o. medications Insulin sliding scale Monitor blood glucose. DVT prophylaxis Lovenox for now Dispo Patient unable to take care of himself; requesting placement to rehab. Patient medically stable for transfer. Please note the above document was generated using voice recognition software. It may contain grammatical, syntax or spelling errors. Any formal questions or concerns about the content, text or information contained within the body of this dictation should be directly addressed to the provider for clarification (2) Unable to care for self: Admission and Anticipated Discharge Date Admission Date: March 15, 2023 Subjective Patient seen and examined at bedside. He is sitting up on the bed; not in distress. Reports pain on left hip. Review of Systems Review of Systems: All systems reviewed & are unremarkable except as noted in Subjective Physical Exam Physical Exam: Constitutional: WD/WN, vitals as above, NAD, sitting up in bed, pleasant, conversing easily Respiratory: normal respiratory effort, lungs clear to auscultation, no wheeze, rales, rhonchi. Normal insp/exp effort, no accessory muscle use Cardiovascular: RRR, no murmur, no edema Vessels: no JVD or carotid bruit Chest: normal inspection of chest Abdomen: normal bowel sounds, soft, nontender, no hepatosplenomegaly Musculoskeletal: no cyanosis or clubbing, extremities motor strength 5/5. Wound in sacral region; dressing in place. Clean dry and intact. Skin: no rashes, warm and dry normal turgor Neurologic: PERRL, EOMI, accommodation nl, no face palsy, no dysarthria CN's II- XI intact bilaterally and moves all extremities Psychiatric: A+Ox3, euthymic affect Results & Data Results & Data Vital Signs (Past 12 Hours) Vital Signs Temp Pulse Resp BP Pulse Ox O2 Del Method 03/17/23 07:42 36.8 C 92 H 18 133/78 93 Room Air Laboratory Results Laboratory Results WBC 8.12 K/ul (4.8-10.8) 03/14/23 07:08 RBC 4.86 M/uL (4.70-6.10) 03/14/23 07:08 Hgb 12.5 g/dl (14.0-18.0) L 03/14/23 07:08 Hct 37.1 % (42.0-52.0) L 03/14/23 07:08 MCV 76.3 fL (80.0-100.0) L 03/14/23 07:08 MCH 25.7 pg (25.0-34.0) 03/14/23 07:08 MCHC 33.7 g/dL (32.0-36.0) 03/14/23 07:08 RDW Std Deviation 40.3 fL (36.4-46.3) 03/14/23 07:08 RDW Coeff of Estefania 14.6 % (11.5-14.5) H 03/14/23 07:08 Plt Count 415 K/uL (130-400) H 03/14/23 07:08 MPV 8.5 fL (9.4-12.4) L 03/14/23 07:08 Immature Gran % (Auto) 0.4 % 03/14/23 07:08 Neut % (Auto) 50.2 % 03/14/23 07:08 Lymph % (Auto) 32.8 % 03/14/23 07:08 [place] % (Auto) 7.1 % 03/14/23 07:08 Eos % (Auto) 7.8 % 03/14/23 07:08 Baso % (Auto) 1.7 % 03/14/23 07:08 Neut # (Auto) 4.08 K/uL (1.40-6.50) 03/14/23 07:08 Lymph # (Auto) 2.66 K/uL (1.20-3.40) 03/14/23 07:08 [place] # (Auto) 0.58 K/uL (0.11-0.59) 03/14/23 07:08 Eos # (Auto) 0.63 K/uL (0.00-0.50) H 03/14/23 07:08 Baso # (Auto) 0.14 K/uL (0.00-0.20) 03/14/23 07:08 Immature Gran # (Auto) 0.03 K/uL (0.01-0.20) 03/14/23 07:08 ESR 77 mm/hr (0-20) H 03/15/23 08:01 PT 9.9 Seconds (9.0-12.0) 03/13/23 19:14 INR 0.9 (0.9-1.1) 03/13/23 19:14 Sodium 134 mmol/L (136-145) L 03/14/23 07:08 Potassium 4.0 mmol/L (3.5-5.1) 03/14/23 07:08 Chloride 104 mmol/L (98-107) 03/14/23 07:08 Carbon Dioxide 26 mmol/L (21-32) 03/14/23 07:08 Anion Gap 4 (3-11) 03/14/23 07:08 BUN 13 mg/dl (6-23) 03/14/23 07:08 Creatinine 1.02 mg/dl (0.6-1.4) 03/17/23 06:34 Est Cr Clr Drug Dosing 91.3 ml/min 03/17/23 06:34 Est GFR ( Amer) 97.5 ml/min 03/17/23 06:34 Est GFR (Non-Af Amer) 84.1 ml/min 03/17/23 06:34 BUN/Creatinine Ratio 13.1 (10-20) 03/14/23 07:08 Glucose 188 mg/dl (70-99(Fasting)) H 03/14/23 07:08 POC Glucose 250 mg/dl (70-99) H 03/17/23 11:22 Estimat Average Glucose 163 mg/dl 03/14/23 07:08 Hemoglobin A1c 7.3 % (4.5-5.6) H 03/14/23 07:08 Calcium 8.5 mg/dl (8.6-10.3) L 03/14/23 07:08 Magnesium 1.6 mg/dl (1.7-2.4) L 03/14/23 07:08 Total Bilirubin 0.2 mg/dl (0.2-1.0) 03/13/23 19:14 AST 15 U/L (13-39) 03/13/23 19:14 ALT 8 U/L (7-52) 03/13/23 19:14 Alkaline Phosphatase 127 U/L (34-104) H 03/13/23 19:14 Troponin I High Sens 6.6 pg/ml (0-20) 03/13/23 19:14 C-Reactive Protein 1.88 mg/dl (0-0.5) H 03/15/23 08:01 B-Natriuretic Peptide 53 pg/ml (0-100) 03/13/23 19:14 Total Protein 7.0 gm/dl (6.0-8.3) 03/13/23 19:14 Albumin 3.0 gm/dl (3.4-5.0) L 03/13/23 19:14 Globulin 4.0 gm/dl (2.5-4.0) 03/13/23 19:14 Albumin/Globulin Ratio 0.8 (0.9-2) L 03/13/23 19:14 TSH 0.801 uIu/ml (0.300-4.500) 03/13/23 19:14 Urine Color Yellow 03/13/23 19:19 Urine Appearance Clear (Clear) 03/13/23 19:19 Urine pH 6.5 (4.5-7.5) 03/13/23 19:19 Ur Specific [place] 1.019 (1.000-1.030) 03/13/23 19:19 Urine Protein 3+ (Negative) H 03/13/23 19:19 Urine Glucose (UA) Trace (Negative) H 03/13/23 19:19 Urine Ketones Negative (Negative) 03/13/23 19:19 Urine Blood Negative (Negative) 03/13/23 19:19 Urine Nitrite Negative (Negative) 03/13/23 19:19 Urine Bilirubin Negative (Negative) 03/13/23 19:19 Urine Urobilinogen Negative (Negative) 03/13/23 19:19 Ur Leukocyte Esterase Negative (Negative) 03/13/23 19:19 Urine WBC (Auto) 1-5 /hpf (0-5) 03/13/23 19:19 Urine RBC (Auto) 0-4 /hpf (0-4) 03/13/23 19:19 U Hyaline Cast (Auto) 1-5 /lpf (0-5) 03/13/23 19:19 U Epithel Cells (Auto) 5-10 /lpf (0-5) H 03/13/23 19:19 Urine Bacteria (Auto) Negative (Negative) 03/13/23 19:19 SARS-CoV-2, RNA, NAAT NEGATIVE (NEGATIVE) 03/13/23 19:11 Impressions Chest X-Ray 03/13/23 19:00 SINGLE VIEW CHEST CLINICAL HISTORY: Lower extremity edema FINDINGS: An AP, portable, upright chest radiograph is compared to study dated 12/01/2022. The examination is degraded by portable technique and apical lordotic positioning. The cardiomediastinal silhouette is top normal for ejection. Emphysema and chronic interstitial thickening is similar to previous. There is mild bibasilar scarring/atelectasis. No airspace consolidation or large pleural effusion is identified. No pneumothorax is seen. The bony thorax is grossly intact. IMPRESSION: Emphysematous change with no active disease in the chest. ACT 112: Negative or not required by law. Electronically signed by: Tremaine Heller M.D. 03/13/2023 9:39 PM Venous Doppler Study 03/13/23 19:00 ULTRASOUND LEFT LOWER EXTREMITY VENOUS CLINICAL HISTORY: Left leg swelling. COMPARISON STUDY: No priors. TECHNIQUE: Real-time, grayscale, and color Doppler sonography of the deep veins of the left lower extremity was performed from the inguinal crease to the calf. Compression and augmentation were utilized. FINDINGS: There is no sonographic evidence of deep venous thrombosis identified in the left lower extremity. The common femoral, superficial femoral, and popliteal veins are patent and normally compressible. The greater saphenous vein and the profunda femoris vein at the junction with the common femoral vein are clear. The visualized calf veins are patent. Calcifications are seen within a superficial vein in the popliteal fossa. IMPRESSION: 1. There is no sonographic evidence of acute deep venous thrombosis identified in the left lower extremity. 2. Calcifications are seen within a superficial vein in the popliteal fossa, possibly representing a small amount of chronic thrombus. ACT 112: Negative or not required by law. Electronically signed by: Tremaine Heller M.D. 03/13/2023 9:01 PM Hip/Pelvis X-Ray 03/17/23 09:20 XR hip LT 2V w pelvis HISTORY: 52 years-old Male pain acute pain of the hips without reported trauma COMPARISON: 02/10/2023 TECHNIQUE: AP view of the pelvis with 2 views of the left hip FINDINGS: Mild osteoarthritis of the hips. No acute fracture, dislocation or avascular necrosis. Unremarkable soft tissues. IMPRESSION: No acute fracture or dislocation. ACT 112: Negative or not required by law. The above report was generated using voice recognition software. It may contain grammatical, syntax or spelling errors. Electronically signed by: Prince Underwood M.D. 03/17/2023 11:20 AM
[2023-03-17] MEDS: ACETAMINOPHEN 325 MG TAB PO PRN (12:22)
[2023-03-17] MEDS: GABAPENTIN 800 MG TAB PO SCH ×2 (15:37→21:09)
[2023-03-17] MEDS: rOPINIRole HCL 2 MG TABLET PO SCH (21:06)
[2023-03-17] MEDS: LANTUS PER UNIT CHARGE SQ SCH (21:13)
[2023-03-18] MEDS: ACETAMINOPHEN 325 MG TAB PO PRN ×2 (04:36→17:34)
[2023-03-18] MEDS: METOCLOPRAMIDE HCL 10 MG TABLET PO SCH ×4 (08:58→20:30)
[2023-03-18] MEDS: ATORVASTATIN 40 MG TAB PO SCH (09:00)
[2023-03-18] MEDS: CYANOCOBALAMIN (B-12) 500 MCG TABLET PO SCH (09:00)
[2023-03-18] MEDS: FLUoxetine HCL 20 MG CAP PO SCH (09:01)
[2023-03-18] MEDS: ENOXAPARIN INJ 40 MG/0.4 ML SYR SQ SCH (09:01)
[2023-03-18] MEDS: GABAPENTIN 800 MG TAB PO SCH ×3 (09:02→20:33)
[2023-03-18] MEDS: ADVANCED PROBIOTIC 1250 MG CAPSULE PO SCH ×2 (09:03→20:33)
[2023-03-18] MEDS: hydrOXYzine HCl 25 MG TAB PO SCH ×3 (09:03→20:31)
[2023-03-18] MEDS: LORATADINE 10 MG TAB PO SCH (09:04)
[2023-03-18] MEDS: lamoTRIgine 100 MG TAB PO SCH ×2 (09:04→20:34)
[2023-03-18] MEDS: MAGNESIUM OXIDE 400 MG TAB PO SCH (09:05)
[2023-03-18] MEDS: LOSARTAN POTASSIUM 50 MG TAB PO SCH ×2 (09:05→20:32)
[2023-03-18] MEDS: NICOTINE 21 MG/24 HR TDSY TD SCH (09:06)
[2023-03-18] MEDS: PANTOprazole 40 MG TAB PO SCH (09:07)
[2023-03-18] MEDS: UMECLIDINIUM/VILANTEROL 62.5/25MCG 7 PUFFS/INHALER INH SCH (09:07)
[2023-03-18] MEDS: ASPIRIN 81 MG CHEW PO SCH (09:18)
[2023-03-18] MEDS: IBUPROFEN 200 MG TAB PO PRN (09:18)
[2023-03-18] MEDS: INSULIN ASPART PER UNIT CHARGE SC SCH ×4 (09:28→21:27)
[2023-03-18] MEDS: oxyCODONE HCL IR 5 MG TAB (IMMEDIATE RELEASE) PO PRN ×2 (12:30→20:22)
--- NOTE | 2023-03-18 13:59 | Hospitalist Progress Note ---
Date of Service March 18, 2023 Assessment & Plan (1) Surgical wound, non healing: Plan: 52-year-old male past medical history significant for type 2 diabetes, hyperlipidemia, asthma, hypertension, history of CVA, GERD, bipolar 1 disorder, history of alcohol dependence in remission, cannabis dependence in remission, adjustment disorder with depression, history of diverticulitis, PTSD, who lives at home with his aunt comes because of gluteal wound and request for placement. Gluteal wound Abscess and cellulitis of gluteal region status post I&D [id number] Patient was recently admitted for abscess and cellulitis in gluteal region; underwent I&D on February 11, 2023. Was following up on wound care. Presents home with drainage from the wound. Surgery evaluated the patient; no further procedure required. We will hold antibiotic. Patient had completed course of antibiotic last admission. Continue wound care. Wound image viewed from 03/17 Unable to care for self Lives with his aunt who is 75 years old Says he could not take care of himself and request placement He says he requires 7 days care for his wound PT OT recommends; discharged to SNF for long-term placement. History of depression Bipolar disorder PTSD Continues home medications Hypertension Increase losartan to 100 mg twice daily. Continue to monitor. Improved blood pressure. Diabetes Continue home Lantus Hold p.o. medications Insulin sliding scale Monitor blood glucose. DVT prophylaxis Lovenox for now Dispo Patient unable to take care of himself; requesting placement to rehab. Patient medically stable for transfer. Please note the above document was generated using voice recognition software. It may contain grammatical, syntax or spelling errors. Any formal questions or concerns about the content, text or information contained within the body of this dictation should be directly addressed to the provider for clarification. (2) Unable to care for self: Admission and Anticipated Discharge Date Admission Date: March 15, 2023 Supervising Physician Co-Signing Physician Notes Patient is seen and examined at bedside. States having some gluteal wound discomfort. Denies any chest pain, shortness of breath, dizziness, nausea, vomiting, abdominal pain. Waiting for rehab placement. On exam patient is moderately built and nourished, no apparent distress, normocephalic atraumatic, EOMI, normal breath sounds, clear to auscultation, S1-S2, no murmur, no pedal edema, abdomen soft, nontender, normal bowel sounds,+ sacral wound dressing, alert, awake, oriented, grossly no focal deficits. Gluteal wound. Currently no signs of infection. Had history of I&D last month. Continue wound care. Waiting for rehab placement. I personally reviewed the record. Patient is interviewed and examined at bedside. Patient's care is coordinated with Dyan Curry PA-C. Please refer to the documentation above for details of patient's presentation and for discussion of other issues. Subjective Pt seen and examined in room 359-1. F/u gluteal wound. Continues to c/o pain. States OXY bid isn't enough. We did add ibuprofen yesterday which is helping along with tylenol. He denies f/c/s, chest pain, sob, n/v/d. Review of Systems Review of Systems: All systems reviewed & are unremarkable except as noted in HPI & below Physical Exam Physical Exam: Gen: WD/WN, NAD, A&O x3 HEENT: Normocephalic, atraumatic, conjunctivae moist, sclerae anicteric, mucous membranes moist. Lung: Clear to Auscultation bilaterally, no wheezes/rales/rhonchi Heart: Regular rate, regular rhythm, no murmurs, rubs, or gallops Abdomen: Soft, NT, ND +BS x 4 Extremities: No edema, Skin: Warm, no rash, negative turgor. +wound in sacral region, dressing cdi inpt wound imagined noted, wound bed and surrounding area clean, no erythema Results & Data Results & Data Medications Administered Current Inpatient Medications Acetaminophen (Acetaminophen 325 Mg Tab) 650 mg PO Q4H PRN PRN Reason: pain/fever Stop: 04/13/23 02:28 Last Admin: 03/18/23 04:36 Dose: 650 mg Albuterol (Albuterol Hfa 8 Gm Inhaler) 2 puffs INH QID PRN PRN Reason: Shortness Of Breath Stop: 04/13/23 02:28 Last Admin: 03/14/23 19:57 Dose: 2 puffs Aspirin (Aspirin 81 Mg Chew) 81 mg PO DAILY FERNANDEZ Stop: 04/13/23 08:59 Last Admin: 03/18/23 09:18 Dose: 81 mg Atorvastatin Calcium (Atorvastatin 40 Mg Tab) 40 mg PO DAILY FERNANDEZ Stop: 04/13/23 08:59 Last Admin: 03/18/23 09:00 Dose: 40 mg Cyanocobalamin (Cyanocobalamin (B-12) 500 Mcg Tablet) 1,000 mcg PO DAILY FERNANDEZ Stop: 04/13/23 08:59 Last Admin: 03/18/23 09:00 Dose: 1,000 mcg Cyclobenzaprine HCl (Cyclobenzaprine Hcl 10 Mg Tab) 10 mg PO HS PRN PRN Reason: .restless leg Stop: 04/13/23 02:28 Dextrose (Dextrose 50% 50 Ml Syringe) 25 - 50 ml IV UD PRN; Protocol PRN Reason: Hypoglycemia Protocol Stop: 04/13/23 02:28 Enoxaparin Sodium (Enoxaparin Inj 40 Mg/0.4 Ml Syr) 40 mg SQ Q24H FERNANDEZ Stop: 04/13/23 08:59 Last Admin: 03/18/23 09:01 Dose: 40 mg Fluoxetine HCl (Fluoxetine Hcl 20 Mg Cap) 40 mg PO DAILY FERNANDEZ Stop: 04/13/23 08:59 Last Admin: 03/18/23 09:01 Dose: 40 mg Gabapentin (Gabapentin 800 Mg Tab) 400 mg PO TID FERNANDEZ Stop: 04/13/23 08:59 Last Admin: 03/18/23 09:02 Dose: 400 mg Glucagon (Glucagon For Inj 1 Mg Vial) 1 mg SQ UD PRN; Protocol PRN Reason: Hypoglycemia Protocol Stop: 04/13/23 02:28 Glucose (Glucose 10 Tab/Tube) 4 - 8 tab PO UD PRN; Protocol PRN Reason: Hypoglycemia Treatment Stop: 04/13/23 02:28 Glucose (Glucose 40% Gel 15 Gm Tube) 15 - 30 gm PO UD PRN; Protocol PRN Reason: Hypoglycemia Protocol Stop: 04/13/23 02:28 Hydroxyzine HCl (Hydroxyzine Hcl 25 Mg Tab) 25 mg PO TID FERNANDEZ Stop: 04/13/23 08:59 Last Admin: 03/18/23 09:03 Dose: 25 mg Ibuprofen (Ibuprofen 200 Mg Tab) 400 mg PO Q6 PRN PRN Reason: pain Stop: 04/16/23 09:21 Last Admin: 03/18/23 09:18 Dose: 400 mg Insulin Aspart (Insulin Aspart Per Unit Charge) 0 units SC ACHS FERNANDEZ Stop: 04/13/23 07:29 Last Admin: 03/18/23 12:29 Dose: 7 units Insulin Glargine (Lantus Per Unit Charge) 45 units SQ QPM FERNANDEZ Stop: 04/13/23 20:59 Last Admin: 03/17/23 21:13 Dose: 45 units Lactobacillus Acidophilus (Advanced Probiotic 1250 Mg Capsule) 2 cap PO BID FERNANDEZ Stop: 04/13/23 08:59 Last Admin: 03/18/23 09:03 Dose: 2 cap Lamotrigine (Lamotrigine 100 Mg Tab) 200 mg PO BID FERNANDEZ Stop: 04/13/23 08:59 Last Admin: 03/18/23 09:04 Dose: 200 mg Loratadine (Loratadine 10 Mg Tab) 10 mg PO DAILY FERNANDEZ Stop: 04/13/23 08:59 Last Admin: 03/18/23 09:04 Dose: 10 mg Losartan Potassium (Losartan Potassium 50 Mg Tab) 100 mg PO BID FERNANDEZ Stop: 04/14/23 20:59 Last Admin: 03/18/23 09:05 Dose: 100 mg Magnesium Oxide (Magnesium Oxide 400 Mg Tab) 400 mg PO DAILY FERNANDEZ Stop: 04/13/23 08:59 Last Admin: 03/18/23 09:05 Dose: 400 mg Metoclopramide HCl (Metoclopramide Hcl 10 Mg Tablet) 10 mg PO AC FERNANDEZ Stop: 04/13/23 07:29 Last Admin: 03/18/23 12:31 Dose: 10 mg Metoclopramide HCl (Metoclopramide Hcl 10 Mg Tablet) 20 mg PO HS FERNANDEZ Stop: 04/13/23 20:59 Last Admin: 03/17/23 21:08 Dose: 20 mg Miscellaneous (Carbohydrates For Hypoglycemia ) 15 - 30 gm PO UD PRN PRN Reason: Hypoglycemia Protocol Stop: 04/13/23 02:28 Miscellaneous (Remove Nicoderm Patch) 1 each N/A DAILY@0859 FERNANDEZ Stop: 04/14/23 08:58 Last Admin: 03/18/23 08:58 Dose: 1 each Nicotine (Nicotine 21 Mg/24 Hr Tdsy) 21 mg TD DAILY FERNANDEZ Stop: 04/13/23 04:59 Last Admin: 03/18/23 09:06 Dose: 21 mg Nicotine Polacrilex (Nicotine Polacrilex 2 Mg Gum) 1 piece MT PRN PRN PRN Reason: nicotine withdrawal Stop: 04/13/23 14:24 Oxycodone HCl (Oxycodone Hcl Ir 5 Mg Tab (Immediate Release)) 5 mg PO Q8H PRN PRN Reason: pain Stop: 03/28/23 08:05 Pantoprazole Sodium (Pantoprazole 40 Mg Tab) 40 mg PO QAM FERNANDEZ Stop: 04/13/23 08:59 Last Admin: 03/18/23 09:07 Dose: 40 mg Polyethylene Glycol (Polyethylene (Miralax) 17 Gm Pack) 17 gm PO DAILY PRN PRN Reason: Constipation Stop: 04/13/23 02:28 Quetiapine Fumarate (Quetiapine Fumarate 25 Mg Tablet) 25 mg PO TID PRN PRN Reason: Anxiety Stop: 04/13/23 02:28 Last Admin: 03/16/23 20:12 Dose: 25 mg Ropinirole HCl (Ropinirole Hcl 2 Mg Tablet) 4 mg PO HS FERNANDEZ Stop: 04/13/23 20:59 Last Admin: 03/17/23 21:06 Dose: 4 mg Umeclidinium/Vilanterol (Umeclidinium/Vilanterol 62.5/25mcg 7 Puffs/Inhaler) 1 puffs INH DAILY FERNANDEZ Stop: 04/13/23 08:59 Last Admin: 03/18/23 09:07 Dose: 1 puffs
[2023-03-18] MEDS: rOPINIRole HCL 2 MG TABLET PO SCH (20:34)
[2023-03-18] MEDS: LANTUS PER UNIT CHARGE SQ SCH (21:30)
[2023-03-19] MEDS: oxyCODONE HCL IR 5 MG TAB (IMMEDIATE RELEASE) PO PRN ×2 (08:42→20:33)
[2023-03-19] MEDS: INSULIN ASPART PER UNIT CHARGE SC SCH ×4 (08:43→20:34)
[2023-03-19] MEDS: ASPIRIN 81 MG CHEW PO SCH (08:46)
[2023-03-19] MEDS: ATORVASTATIN 40 MG TAB PO SCH (08:47)
[2023-03-19] MEDS: METOCLOPRAMIDE HCL 10 MG TABLET PO SCH ×4 (08:47→20:28)
[2023-03-19] MEDS: CYANOCOBALAMIN (B-12) 500 MCG TABLET PO SCH (08:48)
[2023-03-19] MEDS: FLUoxetine HCL 20 MG CAP PO SCH (08:48)
[2023-03-19] MEDS: GABAPENTIN 800 MG TAB PO SCH ×3 (08:49→20:27)
[2023-03-19] MEDS: hydrOXYzine HCl 25 MG TAB PO SCH ×3 (08:50→20:28)
[2023-03-19] MEDS: ADVANCED PROBIOTIC 1250 MG CAPSULE PO SCH ×2 (08:50→20:27)
[2023-03-19] MEDS: lamoTRIgine 100 MG TAB PO SCH ×2 (08:50→20:26)
[2023-03-19] MEDS: LORATADINE 10 MG TAB PO SCH (08:51)
[2023-03-19] MEDS: LOSARTAN POTASSIUM 50 MG TAB PO SCH ×2 (08:52→20:27)
[2023-03-19] MEDS: MAGNESIUM OXIDE 400 MG TAB PO SCH (08:52)
[2023-03-19] MEDS: NICOTINE 21 MG/24 HR TDSY TD SCH (08:53)
[2023-03-19] MEDS: UMECLIDINIUM/VILANTEROL 62.5/25MCG 7 PUFFS/INHALER INH SCH (08:54)
[2023-03-19] MEDS: PANTOprazole 40 MG TAB PO SCH (08:54)
[2023-03-19] MEDS: ENOXAPARIN INJ 40 MG/0.4 ML SYR SQ SCH (08:55)
[2023-03-19 09:27] LABS: Mean Corpuscular Hemoglobin 25.8 pg (25.0-34.0); Mean Corpuscular Hgb Conc 33.3 g/dL (32.0-36.0); Mean Corpuscular Volume 77.4 fL (80.0-100.0); Mean Platelet Volume 8.8 fL (9.4-12.4); Platelet Count 380 K/uL (130-400); RDW Coefficient of Variation 15.1 % (11.5-14.5); Red Blood Count 5.04 M/uL (4.70-6.10); White Blood Count 8.69 K/ul (4.8-10.8)
[2023-03-19 09:43] LABS: BUN Creatinine Ratio 26.9 (10-20); Calcium 8.9 mg/dl (8.6-10.3); Creatinine Clr Calc Pharmacy 89.6 ml/min; Est GFR (African American) 95.2 ml/min; Est GFR (Non-African American) 82.2 ml/min; Potassium 4.2 mmol/L (3.5-5.1)
[2023-03-19] MEDS: ACETAMINOPHEN 325 MG TAB PO PRN (11:08)
[2023-03-19] MEDS: IBUPROFEN 200 MG TAB PO PRN (13:22)
--- NOTE | 2023-03-19 15:48 | Hospitalist Progress Note ---
Date of Service March 19, 2023 Assessment & Plan (1) Surgical wound, non healing: Plan: 52-year-old male past medical history significant for type 2 diabetes, hyperlipidemia, asthma, hypertension, history of CVA, GERD, bipolar 1 disorder, history of alcohol dependence in remission, cannabis dependence in remission, adjustment disorder with depression, history of diverticulitis, PTSD, who lives at home with his aunt comes because of gluteal wound and request for placement. Gluteal wound Abscess and cellulitis of gluteal region status post I&D [id number] Patient was recently admitted for abscess and cellulitis in gluteal region; underwent I&D on February 11, 2023. Was following up on wound care. Presents home with drainage from the wound. Surgery evaluated the patient; no further procedure required. We will hold antibiotic. Patient had completed course of antibiotic last admission. Continue wound care. Wound image viewed from 03/17 Unable to care for self Lives with his aunt who is 75 years old Says he could not take care of himself and request placement He says he requires 7 days care for his wound PT OT recommends; discharge to SNF for long-term placement. Patient refusing wound vac, which is recommended by wound care provider in outpatient setting as well as on discussion today Discussed the importance of smoking cessation for wound healing as well as improved nutrition and glucose control. Patient not interested in cessation. History of depression Bipolar disorder PTSD Continues home medications Hypertension Increase losartan to 100 mg twice daily Continue to monitor Improved blood pressure Diabetes Continue home Lantus Hold p.o. medications Insulin sliding scale Monitor blood glucose. DVT prophylaxis Lovenox for now Dispo Patient unable to take care of himself; awaiting placement (2) Unable to care for self: Admission and Anticipated Discharge Date Admission Date: March 15, 2023 Supervising Physician Co-Signing Physician Notes Patient is seen and examined at bedside. Patient complained to have minimal erythematous itchy rash on upper back. Denies any chest pain, shortness of breath, dizziness, nausea, vomiting, abdominal pain. Waiting for rehab placement. On exam patient is moderately built and nourished, no apparent distress, normocephalic atraumatic, EOMI, normal breath sounds, clear to auscultation, S1-S2, no murmur, no pedal edema, abdomen soft, nontender, normal bowel sounds,+ sacral wound dressing, alert, awake, oriented, grossly no focal deficits. Gluteal wound. Currently no signs of infection. Had history of I&D last month. Continue wound care. Suspected contact dermatitis. Started on triamcinolone cream. Waiting for rehab placement. I personally reviewed the record. Patient is interviewed and examined at bedside. Patient's care is coordinated with Dyan Curry PA-C. Please refer to the documentation above for details of patient's presentation and for discussion of other issues. Subjective Pt seen and examined in room 359-1 in f/u for gluteal wound. Present with wooden shade hardware installer during dressing change. Having pain but improved since yesterday with NSAIDs. No other new symptoms overnight. Encouraged position changes and lying o n side. Denies f/c/s, chest pain, sob, n/v/d. + bowel movement today Review of Systems Review of Systems: At least ten systems reviewed and negative except as noted in the HPI. Physical Exam Physical Exam: Gen: WD/WN, NAD, lying on side in bed, A&Ox3 HEENT: Normocephalic, atraumatic, conjunctivae moist, sclerae anicteric, mucous membranes moist Lung: Clear to Auscultation bilaterally, no wheezes/rales/rhonchi Heart: Regular rate, regular rhythm, no murmurs, rubs, or gallops Abdomen: Soft, NT, ND +BS x 4 Extremities: no edema Skin: Warm, no rash, + full thickness gluteal wound visualized with 3cm depth, scant serous and brown drainage noted. Re-packed by nursing during exam Results & Data Results & Data Vital Signs (Past 12 Hours) Vital Signs Temp Pulse Resp BP Pulse Ox O2 Del Method 03/19/23 07:55 36.4 C L 94 H 18 161/89 H 95 Room Air Laboratory Results Short CBC 03/19/23 Range/Units 08:50 WBC 8.69 (4.8-10.8) K/ul Hgb 13.0 L (14.0-18.0) g/dl Hct 39.0 L (42.0-52.0) % Plt Count 380 (130-400) K/uL BMP 03/19/23 08:50 Sodium 133 L Potassium 4.2 Chloride 107 Carbon Dioxide 21 BUN 28 H Creatinine 1.04 Glucose 201 H Calcium 8.9 Diagnostic Findings Chest X-Ray 03/13/23 19:00 SINGLE VIEW CHEST CLINICAL HISTORY: Lower extremity edema FINDINGS: An AP, portable, upright chest radiograph is compared to study dated 12/01/2022. The examination is degraded by portable technique and apical lordotic positioning. The cardiomediastinal silhouette is top normal for ejection. Emphysema and chronic interstitial thickening is similar to previous. There is mild bibasilar scarring/atelectasis. No airspace consolidation or large pleural effusion is identified. No pneumothorax is seen. The bony thorax is grossly intact. IMPRESSION: Emphysematous change with no active disease in the chest. ACT 112: Negative or not required by law. Electronically signed by: Tremaine Heller M.D. 03/13/2023 9:39 PM Venous Doppler Study 03/13/23 19:00 ULTRASOUND LEFT LOWER EXTREMITY VENOUS CLINICAL HISTORY: Left leg swelling. COMPARISON STUDY: No priors. TECHNIQUE: Real-time, grayscale, and color Doppler sonography of the deep veins of the left lower extremity was performed from the inguinal crease to the calf. Compression and augmentation were utilized. FINDINGS: There is no sonographic evidence of deep venous thrombosis identified in the left lower extremity. The common femoral, superficial femoral, and popliteal veins are patent and normally compressible. The greater saphenous vein and the profunda femoris vein at the junction with the common femoral vein are clear. The visualized calf veins are patent. Calcifications are seen within a superficial vein in the popliteal fossa. IMPRESSION: 1. There is no sonographic evidence of acute deep venous thrombosis identified in the left lower extremity. 2. Calcifications are seen within a superficial vein in the popliteal fossa, possibly representing a small amount of chronic thrombus. ACT 112: Negative or not required by law. Electronically signed by: Tremaine Heller M.D. 03/13/2023 9:01 PM Hip/Pelvis X-Ray 03/17/23 09:20 XR hip LT 2V w pelvis HISTORY: 52 years-old Male pain acute pain of the hips without reported trauma COMPARISON: 02/10/2023 TECHNIQUE: AP view of the pelvis with 2 views of the left hip FINDINGS: Mild osteoarthritis of the hips. No acute fracture, dislocation or avascular necrosis. Unremarkable soft tissues. IMPRESSION: No acute fracture or dislocation. ACT 112: Negative or not required by law. The above report was generated using voice recognition software. It may contain grammatical, syntax or spelling errors. Electronically signed by: Prince Underwood M.D. 03/17/2023 11:20 AM
[2023-03-19] MEDS: rOPINIRole HCL 2 MG TABLET PO SCH (20:29)
[2023-03-19] MEDS: TRIAMCINOLONE ACET 0.5% CR 15 GM TUBE EXT SCH ×2 (20:45)
[2023-03-19] MEDS ORDERED: LANTUS PER UNIT CHARGE SQ SCH ×2 (21:00)
[2023-03-20 06:58] LABS: Creatinine Clr Calc Pharmacy 90.4 ml/min; Est GFR (African American) 96.3 ml/min; Est GFR (Non-African American) 83.1 ml/min
[2023-03-20] MEDS: oxyCODONE HCL IR 5 MG TAB (IMMEDIATE RELEASE) PO PRN (07:50)
[2023-03-20] MEDS: INSULIN ASPART PER UNIT CHARGE SC SCH ×2 (08:10→12:07)
[2023-03-20] MEDS: METOCLOPRAMIDE HCL 10 MG TABLET PO SCH ×2 (08:20→12:13)
[2023-03-20] MEDS: hydrOXYzine HCl 25 MG TAB PO SCH ×2 (08:20→13:09)
[2023-03-20] MEDS: ADVANCED PROBIOTIC 1250 MG CAPSULE PO SCH (08:21)
[2023-03-20] MEDS: GABAPENTIN 800 MG TAB PO SCH ×2 (08:21→13:08)
[2023-03-20] MEDS: LOSARTAN POTASSIUM 50 MG TAB PO SCH (08:21)
[2023-03-20] MEDS: lamoTRIgine 100 MG TAB PO SCH (08:22)
[2023-03-20] MEDS: NICOTINE 21 MG/24 HR TDSY TD SCH (08:22)
[2023-03-20] MEDS: FLUoxetine HCL 20 MG CAP PO SCH (08:23)
[2023-03-20] MEDS: PANTOprazole 40 MG TAB PO SCH (08:23)
[2023-03-20] MEDS: ENOXAPARIN INJ 40 MG/0.4 ML SYR SQ SCH (08:23)
[2023-03-20] MEDS: ASPIRIN 81 MG CHEW PO SCH (08:23)
[2023-03-20] MEDS: CYANOCOBALAMIN (B-12) 500 MCG TABLET PO SCH (08:24)
[2023-03-20] MEDS: MAGNESIUM OXIDE 400 MG TAB PO SCH (08:24)
[2023-03-20] MEDS: ATORVASTATIN 40 MG TAB PO SCH (08:24)
[2023-03-20] MEDS: LORATADINE 10 MG TAB PO SCH (08:24)
[2023-03-20] MEDS: TRIAMCINOLONE ACET 0.5% CR 15 GM TUBE EXT SCH (08:25)
[2023-03-20] MEDS: UMECLIDINIUM/VILANTEROL 62.5/25MCG 7 PUFFS/INHALER INH SCH (08:25)
[2023-03-20] MEDS: ACETAMINOPHEN 325 MG TAB PO PRN (12:06)
--- NOTE | 2023-03-20 13:52 | Discharge Summary ---
Discharge Summary Date of Service March 20, 2023 Notes For Next Care Provider Gluteal wound, DC to SNF as unable to care for self. Follow-up with wound care Medication Changes From Visit Increase losartan to 100 mg twice daily, decrease Lantus to 40 units at bedtime, as needed Oxy every 8 hours as needed for severe pain Admission HPI Per Admitting Provider 52-year-old male past medical history significant for type 2 diabetes, hyperlipidemia, asthma, hypertension, history of CVA, GERD, bipolar 1 disorder, history of alcohol dependence in remission, cannabis dependence in remission, adjustment disorder with depression, history of diverticulitis, PTSD, who lives at home with his aunt comes because of gluteal wound and request for placement. Patient was recently in the hospital for gluteal abscess s/p I&D done on the second of the February 2023 and s/p wound VAC placement treated with antibiotics. Patient states he follows with wound care. He also gets home health nurse 3 times a week but he want 7 times a week. He says he is not able to take care of himself at home. He likes to go to a snf. Has some drainage from the gluteal wound. No wound vac seen. Also some question of some erythematous changes in the left lower extremity,Doppler was done and no acute DVT was found. Currently resting comfortable hemodynamic stable. Denies any headache. No earache or runny nose or sore throat. No chest pain. Has some shortness of breath. No fevers. No nausea. No abdominal pain. Normal bowel and bladder movements. 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 Social history 1 pack a day for 34 years. 3 standings of alcohol per week. No drug use currently. Family history Brother has bipolar. Father has bipolar, aortic aneurysm. Mother has lung cancer, diabetes, hypertension, emphysema. Uncle has heart disorder Admission Exam Per Admitting Provider General- Not in distress Head- atraumatic Eyes- PERRL. ENT- oropharynx clear Neck- supple, Lungs- clear to auscultation no wheezing or crackles. Heart- regular rhythm; no murmur, no gallop. Abdomen- normal bowel sounds, soft, nontender, no distension. Extremities- no pretibial edema, scabs seen b/l legs. Neuro- alert, oriented x 3; PERRL,no facial palsy; no dysarthria; moves extremities. Skin- deep gluteal wound near coccyx with drainage seen. Principal Dx & Hospital Course #1 = Principal Diagnosis (1) Surgical wound, non healing: (2) Unable to care for self: Plan This is a 52-year-old male past medical history significant for type 2 diabetes, hyperlipidemia, asthma, hypertension, history of CVA, GERD, bipolar 1 disorder, history of alcohol dependence in remission, cannabis dependence in remission, adjustment disorder with depression, history of diverticulitis, PTSD, who lives at home with his aunt comes because of gluteal wound and request for placement. Patient with history of gluteal wound, abscess and cellulitis of region status post I&D onAugust 2022 during previous admission. Presents again with nonhealing wound and inability to care for self at home. Was evaluated by surgical service and no further procedure required. No antibiotics indicated at this time as no signs or symptoms of infection and recent completion of antibiotic a few weeks prior. Wound VAC recommended by provider and wound care service but patient refusing due to bad experience with one in the past. Repeatedly discussed health benefits and wound healing potential with smoking cessation but patient not interested in cessation at this time. BP persistently elevated during admission so losartan was increased from 50 mg daily to 100 mg twice daily with improvement in blood pressure. Decreased nightly Lantus slightly to 40 units at bedtime due to borderline low reads. Continue as needed Tylenol and ibuprofen for pain related to gluteal wound as well as as needed oxycodone for severe pain. Continue wound care at SNF per instructions provided by wound care nurse. Patient comfortable and hemodynamically stable at time of discharge to SNF. Discharge Exam Gen: WD/WN, NAD, sitting up in bed, A&Ox3 HEENT: Normocephalic, atraumatic, conjunctivae moist, sclerae anicteric, mucous membranes moist Lung: Clear to Auscultation bilaterally, no wheezes/rales/rhonchi Heart: Regular rate, regular rhythm, no murmurs, rubs, or gallops Abdomen: Soft, NT, ND +BS x 4 Extremities: no edema Skin: Warm, no rash, + gluteal wound bandage c/d/i Updated Medication List Medication Instructions Recorded Confirmed Type acetaminophen 650 mg 650 mg PO BID PRN Pain 12/03/22 03/13/23 History tablet,extended release albuterol sulfate 90 mcg/actuation 2 puff inhalation QID PRN 12/03/22 03/13/23 History aerosol inhaler Shortness Of Breath aspirin 81 mg chewable tablet 81 mg PO DAILY 12/03/22 03/13/23 History atorvastatin 40 mg tablet 40 mg PO DAILY 12/03/22 03/13/23 History cyanocobalamin (vitamin B-12) 1,000 mcg PO DAILY 12/03/22 03/13/23 History 1,000 mcg tablet cyclobenzaprine 10 mg tablet 10 mg PO HS PRN .restless leg 12/03/22 03/13/23 History epinephrine 0.3 mg/0.3 mL 0.3 mg IM DIRECTED PRN severe 12/03/22 03/13/23 History injection, auto-injector reaction fluoxetine 40 mg capsule 40 mg PO DAILY 12/03/22 03/13/23 History gabapentin 400 mg capsule 400 mg PO TID 12/03/22 03/13/23 History glycopyrrolate 9 mcg-formoterol 2 puff inhalation AMHS 12/03/22 03/13/23 History 4.8 mcg HFA aerosol inhaler (Bevespi Aerosphere) ibuprofen 800 mg tablet 800 mg PO TID PRN Pain 12/03/22 03/13/23 History insulin lispro 100 unit/mL 14 - 50 unit subcut TID 12/03/22 03/13/23 History subcutaneous pen (Admelog SoloStar U-) lamotrigine 200 mg tablet 200 mg PO AMHS 12/03/22 03/13/23 History loratadine 10 mg tablet 10 mg PO DAILY 12/03/22 03/13/23 History magnesium oxide 500 mg capsule 500 mg PO DAILY 12/03/22 03/13/23 History metformin 500 mg tablet 1,000 mg PO QAM 12/03/22 03/13/23 History metoclopramide HCl 10 mg tablet 10 mg PO TID 12/03/22 03/13/23 History metoclopramide HCl 10 mg tablet 20 mg PO HS 12/03/22 03/13/23 History pantoprazole 40 mg tablet,delayed 40 mg PO QAM 12/03/22 03/13/23 History release hydroxyzine HCl 25 mg tablet 25 mg PO TID 02/27/23 03/13/23 History quetiapine 25 mg tablet 25 mg PO TID PRN Anxiety 02/27/23 03/13/23 History ropinirole 2 mg tablet 4 mg PO HS 02/27/23 03/13/23 History acetaminophen 325 mg tablet 650 mg PO Q4H PRN fever or pain 03/20/23 Rx #30 tabs ibuprofen 200 mg tablet 400 mg PO Q6 PRN pain #30 tabs 03/20/23 Rx insulin glargine 100 unit/mL (3 40 unit (0.4 mL) subcut QPM #15 mL 03/20/23 03/13/23 Rx mL) subcutaneous pen (Lantus Solostar U-100 Insulin) losartan 50 mg tablet 100 mg PO BID #60 tabs 03/20/23 03/13/23 Rx nicotine 21 mg/24 hr daily 21 mg transdermal DAILY #7 ea 03/20/23 Rx transdermal patch (Nicoderm CQ) oxycodone 5 mg tablet 5 mg PO Q8H PRN severe pain (scale 03/20/23 Rx score 7-10) #10 tabs Hospital Stay Data Consultations 03/13/23 21:05 ED Decision to Admit Stat 03/14/23 08:00 Consult General Surgery Routine Diagnostic Imagining Performed 03/13/23 19:00 US venous duplex leg [US venous doppler LE LT] Stat Pending Results Patient Have Any Pending Studies at Discharge: No Discharge Instructions Given to Patient (Per Discharging Provider) MEDICATION CHANGES: Increased losartan to 100mg BID Decreased Lantus to 40u HS Alternate PRN Tylenol ibuprofen for pain and oxycodone Q8H PRN severe pain SUMMARY OF TEST RESULTS: You were admitted to hospital secondary gluteal wound. Surgery evaluated and did not feel further procedure was needed No continuation of antibiotics needed. Continue wound care - instructions below Discharging to SNF for long-term placement as unable to care for self Continue to emphasize the importance of smoking cessation to wound healing PENDING TEST RESULTS: None RECOMMENDATIONS FOR FOLLOW-UP: Follow up with PCP as scheduled. Complete antibiotic in its entirety. Continue medication regimen as scheduled aside from changes noted above. OTHER INSTRUCTIONS: Seek medical attention if you have: * temperature above 101 * chest pain or trouble breathing * abdominal pain, nausea, vomiting * diarrhea, dark stools or bloody stools * any unanswered questions or concerns Call 911 if symptoms are severe. Please take good care of yourself. Call if you have any questions or problems. You can reach a [facility] hospitalist on duty at [facility] 24 hours a day by calling [phone]. Total Time Total Time Spent Total Time Spent (In Minutes): 50 Supervising Physician Co-Signing Physician Notes Patient is seen and examined at bedside. States feeling well today. Erythematous rash on upper back much improved. offers no other complaints today. Denies any chest pain, shortness of breath, dizziness, nausea, vomiting, abdominal pain. Plan to be discharged to rehab facility today. On exam patient is moderately built and nourished, no apparent distress, normocephalic atraumatic, EOMI, normal breath sounds, clear to auscultation, S1-S2, no murmur, no pedal edema, abdomen soft, nontender, normal bowel sounds,+ sacral wound dressing, alert, awake, oriented, grossly no focal deficits. Gluteal wound. Currently no signs of infection. Had history of I&D last month. Continue wound care. Suspected contact dermatitis. Rash much improved on triamcinolone cream. Plan to discharge today. Agree with reducing Lantus dose for diabetes management. May need readjustment of insulin as outpatient. I personally reviewed the record. Patient is interviewed and examined at bedside. Patient's care is coordinated with Naima Ayala PA-C. Please refer to the documentation above for details of patient's presentation and for discussion of other issues.
== END 2023-03-20 14:05 ==
LOC: ED 18:35 → 3W 18:35 → SUATTDRO 03-15 12:22